=== PATIENT | female | born 1945 | race Caucasian/White ===

== ENCOUNTER 2022-03-17 16:51 | Emergency (ER) | payer OTHER ==
--- OUTSIDE RECORDS SUMMARY | 2022-03-17 16:56 | XMS REPORT | Continuity of Care Document ---
:1945 Author Organization [facility] t Address [address] [place] [address] Care Team Providers Name Role Phone Cliff MARR Primary Care Physician Unavailable JAMES ARCHULETA Attending Clinician Unavailable JULIO STOCK Attending Clinician Unavailable JULIO STOCK Attending Clinician Unavailable Julio Stock MD Attending Clinician Conchita SARABIA Attending Clinician CONCHITA Attending Clinician Unavailable Aj MARTINEZ Attending Clinician Cliff GONZALES Attending Clinician Unavailable Nini CHI Attending Clinician Unavailable Blu Attending Clinician Unavailable JAMES ARCHULETA Admitting Clinician Unavailable JULIO STOCK Admitting Clinician Unavailable Blu Admitting Clinician Unavailable Payers Payer Name Policy Type Policy Number Effective Date Expiration Date S ource MEDICARE ADVANTAGE [id number] [facility] MEDICARE PART A [id number] \\T\\ [id number] - MEDICARE UNITED MEDICARE [id number] 2021 O 00:00:00 MEDICARE B-[place]: [id number] 2012 [employer] 00:00:00 Problems This patient has no known problems. Allergies, Adverse Reactions, Alerts Allergy Allergy Status Severity Reaction(s) Onset Inactive Treating Comm ents Source Name Type Date Date Clinician Iodinate Propensi Active 2020-11 Other [facility] d ty to 11-16 reaction( College Diagnost adverse 00:00: s): of ic reaction 00 Unknown Medicin Agents s to e drug ACETIC Allergy Active [facility] Acetic Propensi Active [facility] Acid ty to 07-03 College adverse 00:00: of reaction 00 Medicin s to e drug CIPROFLO Allergy Active 2019-[address] [facility]ACIN 12[facility] Ciproflo Propensi Active 2019-11 [facility] xacin ty to 12-15 College adverse 00:00: of reaction 00 Medicin s to e drug CODEINE Allergy Active 2018-[address] [facility] IODINE Allergy Active Other 2018-[address] [facility] PENICILL Allergy Active Other 2018-[address] [facility] INS 11[facility]21 [facility] SULFA Allergy Active Other 2018-[address] [facility] (SULFONA 11-21 [facility] M[facility] ANTIBIOT 00 Center ICS) TRAMADOL Allergy Active Other 2018-[address] [facility] Tramadol Propensi Active Other (See 2018-11 [facility] to Comments) 11-21 College adverse 00:00: of reaction 00 Medicin s to e drug Codeine Propensi Active Other (See 2018-11 [facility] ty to Comments) 11-21 College adverse 00:00: of reaction 00 Medicin s to e drug Iodine Propensi Active Other (See 2018-11 [facility] to Comments) 11-21 College adverse 00:00: of reaction 00 Medicin s to e drug Penicill Propensi Active Other (See 2018-11 [facility] ty to Comments) 11-21 College adverse 00:00: of reaction 00 Medicin s to e drug Sulfa Propensi Active Other (See 2018-11 Other [facility] Antibiot ty to Comments) 11-21 reaction( Co llege ics adverse 00:00: s): of reaction 00 Other, Medicin s to Other e drug (See Comments) , Other (See Comments) Other reaction( s): Other (see comments) Other reaction( s): Other (see comments) Social History Social Habit Start Date Stop Date Quantity Comments Source Sex Assigned At Female Access He alth History [facility] ge Alcohol Std Drinks of Med icine History [facility] ge Alcohol Binge of Medicine History [facility] Alcohol Comment of Medici ne Alcohol intake 2022-02-10 2022-02-10 [facility] 00:00:00 00:00:00 non-drinker of Medicine (finding) Exposure to 2022-01-30 2022-02-09 Not sure [facility] Alexia e SARS-CoV-2 (event) 00:00:00 18:13:00 of Med icine History [facility] 2022-01-16 2022-01-16 1 [facility] Alcohol Frequency 00:00:00 00:00:00 of Medi cine Tobacco use and 2021-07-03 2021-07-03 Smokeless tobacco [facility] exposure 00:00:00 00:00:00 non-user of Medicine Smoking Status Start Date Stop Date Source Unknown if ever smoked Access He alth Never smoked tobacco [facility] of Medicine Medications Ordered Filled Start Stop Current Ordering Indication Dosage Frequency Signature Comments Components Source Medication Medication Date Date Medication? Clinician (SIG) Name Name Multiple Yes 1{tbl} Take 1 [facility] Vitamin 3-28 Tablet by [place] (ONE-DAILY 12:58: mouth. of MULTIVITAMI 01 Medicin NS) TABS e Famotidine- 2021- 1{tbl} Take 1 [facility] Carb-Mag 3-28 03-28 Tablet by Co matt Hydrox 12:57: 00:00 mouth. of 10-800-165 26 :00 Medicin MG CHEW e tramadol Yes 1{tbl} Take 1 [facility] (ULTRAM) 50 3-28 Tablet by Col lege MG tablet 00:00: mouth of 00 every 8 Medicin hours as e needed for Pain. Multiple Yes 1{tbl} Take 1 [facility] Vitamin 2-03 Tablet by [place] (ONE-DAILY 10:19: mouth. of MULTIVITAMI 06 Medicin NS) TABS e Multiple Yes 1{tbl} Take 1 [facility] Vitamin 2-03 Tablet by [place] (ONE-DAILY 10:19: mouth. of MULTIVITAMI 06 Medicin NS) TABS e ondansetron Yes 4mg Take 1 [facility] (ZOFRAN) 4 2-03 Tablet by Sandra ege MG tablet 00:00: mouth of 00 every 8 Medicin hours as e needed for Nausea for up to 21 doses. Scopolamine 2022-[address] 1 mg Jeff 1 MG/3DAYS 2-03 onto the [facility] [id number] 00:00: skin every of 00 3 days. Medicin e HYDROmorpho 2022-0 Yes 2mg Take 1 [facility] ne 2-03 Tablet by [place] (DILAUDID) 00:00: mouth of 2 MG tablet 00 every 3 Medic in hours as e needed for Pain for up to 30 doses. ondansetron 2022-0 Yes 4mg Take 1 [facility] (ZOFRAN) 4 2-03 Tablet by Sandra ege MG tablet 00:00: mouth of 00 every 8 Medicin hours as e needed for Nausea for up to 21 doses. Scopolamine 2022-[address] 1 mg Jeff 1 MG/3DAYS 2-03 onto the [facility] PT72 00:00: skin every of 00 3 days. Medicin e HYDROmorpho 2022-0 Yes 2mg Take 1 [facility] ne 2-03 Tablet by [place] (DILAUDID) 00:00: mouth of 2 MG tablet 00 every 3 Medic in hours as e needed for Pain for up to 30 doses. ondansetron 2022-0 2022- No 4mg Take 1 [facility] (ZOFRAN) 4 2-01 16-28 Tablet by Col lege MG tablet 00:00: 00:00 mouth of 00 :00 every 8 Medicin hours as e needed for Nausea for up to 21 doses. Scopolamine 2022-0 2022- No 1mg Place 1 mg [facility] 1 MG/3DAYS 2-01 16-28 onto the Sandra ege PT72 00:00: 00:00 skin every of 00 :00 3 days. Medicin e HYDROmorpho 2022-0 2022- No 2mg Take 1 [facility] ne 2-03 -28 Tablet by [place] (DILAUDID) 00:00: 00:00 mouth of 2 MG tablet 00 :00 every 3 Medic in hours as e needed for Pain for up to 30 doses. gabapentin 2022-0 2022- Yes 300mg Take 1 [facility] (NEURONTIN) 2-03 02-11 capsule by [facility] verdin 300 MG 00:00: 05:59 mouth 3 of capsule 00 :00 times Medicin daily for e 21 doses. Empty contents in 5 mls of water estradiol 2020-11 Yes [facility] (ESTRACE) 1-11 [place] 0.1 MG/GM 00:00: of vaginal Medicin cream e estradiol 2020-11 Yes [facility] (ESTRACE) 1-11 [place] 0.1 MG/GM 00:00: of vaginal Medicin cream e estradiol 2020-11 Yes [facility] (ESTRACE) 1-11 [place] 0.1 MG/GM 00:00: of vaginal Medicin cream e estradiol 2020-11 Yes [facility] (ESTRACE) 1-11 [place] 0.1 MG/GM 00:00: of vaginal Medicin cream e Multiple Yes 1{tbl} Take 1 [facility] 9-22 Tablet by [place] (ONE-DAILY 10:27: mouth. of MULTIVITAMI 49 Medicin NS) TABS e Famotidine- Yes 1{tbl} Take 1 [facility] Carb-Mag 9-22 Tablet by Col lege Hydrox 10:27: mouth. of 49 Medicin MG CHEW e Multiple Yes 1{tbl} Take 1 [facility] 9-22 Tablet by [place] (ONE-DAILY 10:27: mouth. of MULTIVITAMI 49 Medicin NS) TABS e Famotidine- Yes 1{tbl} Take 1 [facility] Carb-Mag 9-22 Tablet by Col lege Hydrox 10:27: mouth. of 49 Medicin MG CHEW e Multiple Yes 1{tbl} Take 1 [facility] 9-22 Tablet by [place] (ONE-DAILY 10:27: mouth. of MULTIVITAMI 49 Medicin NS) TABS e Famotidine- 2020-0 Yes 1{tbl} Take 1 [facility] Carb-Mag 9-22 Tablet by Col lege Hydrox 10:27: mouth. of 49 Medicin MG CHEW e Famotidine- 2020-0 Yes 1{tbl} Take 1 [facility] Carb-Mag 9-22 Tablet by Col lege Hydrox 10:27: mouth. of 49 Medicin MG CHEW e Famotidine- 0 Yes 1{tbl} Take 1 [facility] Carb-Mag 9-22 Tablet by Col lege Hydrox 10:27: mouth. of 49 Medicin MG CHEW e Multiple Yes 1{tbl} Take 1 [facility] 9-22 Tablet by [place] (ONE-DAILY 10:27: mouth. of MULTIVITAMI 49 Medicin NS) TABS e Famotidine- 2020-0 Yes 1{tbl} Take 1 [facility] Carb-Mag 9-22 Tablet by Col lege Hydrox 10:27: mouth. of 49 Medicin MG CHEW e Multiple 0 Yes 1{tbl} Take 1 [facility] 9-22 Tablet by [place] (ONE-DAILY 10:27: mouth. of MULTIVITAMI 49 Medicin NS) TABS e Famotidine- 2020-0 Yes 1{tbl} Take 1 [facility] Carb-Mag 9-22 Tablet by Col lege Hydrox 10:27: mouth. of 49 Medicin MG CHEW e Multiple Yes 1{tbl} Take 1 [facility] 9-22 Tablet by [place] (ONE-DAILY 10:27: mouth. of MULTIVITAMI 49 Medicin NS) TABS e Famotidine- 2020-0 Yes 1{tbl} Take 1 [facility] Carb-Mag 9-22 Tablet by Col lege Hydrox 10:27: mouth. of 49 Medicin MG CHEW e clonidine 0 Yes [facility] (CATAPRES) 8-16 College 0.1 MG 00:00: of tablet 00 Medicin e clonidine 0 Yes [facility] (CATAPRES) 8-16 College 0.1 MG 00:00: of tablet 00 Medicin e clonidine 0 Yes [facility] (CATAPRES) 8-16 College 0.1 MG 00:00: of tablet 00 Medicin e clonidine 0 Yes [facility] (CATAPRES) 8-16 College 0.1 MG 00:00: of tablet 00 Medicin e clonidine 0 Yes [facility] (CATAPRES) 8-16 College 0.1 MG 00:00: of tablet 00 Medicin e clonidine 0 Yes [facility] (CATAPRES) 8-16 College 0.1 MG 00:00: of tablet 00 Medicin e clonidine 0 Yes [facility] (CATAPRES) 8-16 College 0.1 MG 00:00: of tablet 00 Medicin e clonidine 0 Yes [facility] (CATAPRES) 8-16 College 0.1 MG 00:00: of tablet 00 Medicin e clonidine 0 2- No [facility] (CATAPRES) 8-16 03-28 College 0.1 MG 00:00: 00:00 of tablet 00 :00 Medicin e lisinopril Yes TAKE 1 [facility] (PRINIVIL, 7-25 TABLET BY Sandra ege ZESTRIL) 40 00:00: MOUTH of MG tablet 00 TWICE Medicin DAILY e lisinopril Yes TAKE 1 [facility] (PRINIVIL, 7-25 TABLET BY Sandra ege ZESTRIL) 40 00:00: MOUTH of MG tablet 00 TWICE Medicin DAILY e lisinopril Yes TAKE 1 [facility] (PRINIVIL, 7-25 TABLET BY Sandra ege ZESTRIL) 40 00:00: MOUTH of MG tablet 00 TWICE Medicin DAILY e lisinopril Yes TAKE 1 [facility] (PRINIVIL, 7-25 TABLET BY Sandra ege ZESTRIL) 40 00:00: MOUTH of MG tablet 00 TWICE Medicin DAILY e lisinopril Yes TAKE 1 [facility] (PRINIVIL, 7-25 TABLET BY Sandra ege ZESTRIL) 40 00:00: MOUTH of MG tablet 00 TWICE Medicin DAILY e lisinopril Yes TAKE 1 [facility] (PRINIVIL, 7-25 TABLET BY Sandra ege ZESTRIL) 40 00:00: MOUTH of MG tablet 00 TWICE Medicin DAILY e lisinopril Yes TAKE 1 [facility] (PRINIVIL, 7-25 TABLET BY Sandra ege ZESTRIL) 40 00:00: MOUTH of MG tablet 00 TWICE Medicin DAILY e lisinopril Yes TAKE 1 [facility] (PRINIVIL, 7-25 TABLET BY Sandra ege ZESTRIL) 40 00:00: MOUTH of MG tablet 00 TWICE Medicin DAILY e lisinopril Yes TAKE 1 [facility] (PRINIVIL, 7-25 TABLET BY Sandra ROGERS) 40 00:00: MOUTH of MG tablet 00 TWICE Medicin DAILY e EUTHYROX 0 Yes TAKE 1 [facility] 100 MCG 7-23 TABLET BY College tablet 00:00: MOUTH ONCE of 00 DAILY Medicin e EUTHYROX 2020-0 Yes TAKE 1 [facility] 100 MCG 7-23 TABLET BY College tablet 00:00: MOUTH ONCE of 00 DAILY Medicin e EUTHYROX 0 Yes TAKE 1 [facility] 100 MCG 7-23 TABLET BY College tablet 00:00: MOUTH ONCE of 00 DAILY Medicin e EUTHYROX 0 Yes TAKE 1 [facility] 100 MCG 7-23 TABLET BY College tablet 00:00: MOUTH ONCE of 00 DAILY Medicin e EUTHYROX 0 Yes TAKE 1 [facility] 100 MCG 7-23 TABLET BY College tablet 00:00: MOUTH ONCE of 00 DAILY Medicin e EUTHYROX 2020-0 Yes TAKE 1 [facility] 100 MCG 7-23 TABLET BY College tablet 00:00: MOUTH ONCE of 00 DAILY Medicin e EUTHYROX 0 Yes TAKE 1 [facility] 100 MCG 7-23 TABLET BY College tablet 00:00: MOUTH ONCE of 00 DAILY Medicin e EUTHYROX 0 Yes TAKE 1 [facility] 100 MCG 7-23 TABLET BY College tablet 00:00: MOUTH ONCE of 00 DAILY Medicin e EUTHYROX 2020-0 2021- No TAKE 1 [facility] 100 MCG 7-23 03-28 TABLET BY Colleg e tablet 00:00: 00:00 MOUTH ONCE of 00 :00 DAILY Medicin e metoprolol 0 Yes TAKE 1 [facility] (TOPROL-XL) 7-22 TABLET BY Col lege 200 MG XL 00:00: MOUTH ONCE of tablet 00 DAILY Medicin e metoprolol 0 Yes TAKE 1 [facility] (TOPROL-XL) 7-22 TABLET BY Col lege 200 MG XL 00:00: MOUTH ONCE of tablet 00 DAILY Medicin e metoprolol 0 Yes TAKE 1 [facility] (TOPROL-XL) 7-22 TABLET BY Col lege 200 MG XL 00:00: MOUTH ONCE of tablet 00 DAILY Medicin e metoprolol 0 Yes TAKE 1 [facility] (TOPROL-XL) 7-22 TABLET BY Col lege 200 MG XL 00:00: MOUTH ONCE of tablet 00 DAILY Medicin e metoprolol Yes TAKE 1 [facility] (TOPROL-XL) 7-22 TABLET BY Col lege 200 MG XL 00:00: MOUTH ONCE of tablet 00 DAILY Medicin e metoprolol Yes TAKE 1 [facility] (TOPROL-XL) 7-22 TABLET BY Col lege 200 MG XL 00:00: MOUTH ONCE of tablet 00 DAILY Medicin e metoprolol Yes TAKE 1 [facility] (TOPROL-XL) 7-22 TABLET BY Col lege 200 MG XL 00:00: MOUTH ONCE of tablet 00 DAILY Medicin e metoprolol Yes TAKE 1 [facility] (TOPROL-XL) 7-22 TABLET BY Col lege 200 MG XL 00:00: MOUTH ONCE of tablet 00 DAILY Medicin e metoprolol Yes TAKE 1 [facility] (TOPROL-XL) 7-22 TABLET BY Col lege 200 MG XL 00:00: MOUTH ONCE of tablet 00 DAILY Medicin e atorvastati Yes TAKE 1 [facility] (LIPITOR) 7-12 TABLET BY Col lege 40 MG 00:00: MOUTH ONCE of tablet 00 DAILY Medicin e atorvastati Yes TAKE 1 [facility] (LIPITOR) 7-12 TABLET BY Col lege 40 MG 00:00: MOUTH ONCE of tablet 00 DAILY Medicin e atorvastati Yes TAKE 1 [facility] (LIPITOR) 7-12 TABLET BY Col lege 40 MG 00:00: MOUTH ONCE of tablet 00 DAILY Medicin e atorvastati Yes TAKE 1 [facility] (LIPITOR) 7-12 TABLET BY Col lege 40 MG 00:00: MOUTH ONCE of tablet 00 DAILY Medicin e atorvastati Yes 40mg Take 40 mg Jeff n (LIPITOR) 7-12 by mouth [facility] 40 MG 00:00: daily. of tablet 00 Medicin e atorvastati Yes 40mg Take 40 mg [facility] n (LIPITOR) 7-12 by mouth Sandra ege 40 MG 00:00: daily. of tablet 00 Medicin e atorvastati Yes TAKE 1 [facility] (LIPITOR) 7-12 TABLET BY Col lege 40 MG 00:00: MOUTH ONCE of tablet 00 DAILY Medicin e atorvastati Yes TAKE 1 [facility] (LIPITOR) 7-12 TABLET BY Col lege 40 MG 00:00: MOUTH ONCE of tablet 00 DAILY Medicin e atorvastati Yes TAKE 1 [facility] (LIPITOR) 7-12 TABLET BY Col lege 40 MG 00:00: MOUTH ONCE of tablet 00 DAILY Medicin e Immunizations Ordered Immunization Filled Immunization Date Status Commen ts Source Name Name Influenza 2019-08-29 Completed [facility] Quadrivalent 3YRS+ 00:00:00 of Med icine Influenza 2019-08-29 Completed [facility] Quadrivalent 3YRS+ 00:00:00 of Med icine Influenza 2019-08-29 Completed [facility] Quadrivalent 3YRS+ 00:00:00 of Med icine Influenza 2019-08-29 Completed [facility] Quadrivalent 3YRS+ 00:00:00 of Med icine Influenza 2019-08-29 Completed [facility] Quadrivalent 3YRS+ 00:00:00 of Med icine Influenza 2019-08-29 Completed [facility] Quadrivalent 3YRS+ 00:00:00 of Med icine Influenza 2019-08-29 Completed [facility] Quadrivalent 3YRS+ 00:00:00 of Med icine Influenza 2019-08-29 Completed [facility] Quadrivalent 3YRS+ 00:00:00 of Med icine Influenza 2019-08-29 Completed [facility] Quadrivalent 3YRS+ 00:00:00 of Med icine Vital Signs Vital Name Observation Time Observation Value Comments Source HEIGHT 2021-07-24 11:09:00 160 cm WEIGHT 2021-07-24 11:09:00 80.876 kg HEIGHT 2021-07-17 16:09:00 160 cm WEIGHT 2021-07-17 16:09:00 82.101 kg Systolic blood 2022-02-10 17:56:00 147 mm[Hg] [facility] pressure Medicine Diastolic blood 2022-02-10 17:56:00 85 mm[Hg] [facility] Medicine Heart rate 2022-02-10 17:56:00 64 /min [facility] Body height 2022-02-10 17:56:00 160 cm [facility] Body weight 2022-02-10 17:56:00 77.111 kg [facility] BMI 2022-02-10 17:56:00 30.11 kg/m2 [facility] Systolic blood 2022-01-16 18:51:00 109 mm[Hg] [facility] Medicine Diastolic blood 2022-01-16 18:51:00 69 mm[Hg] [facility] Medicine Heart rate 2022-01-16 18:51:00 74 /min [facility] Body height 2022-01-16 18:51:00 165.1 cm [facility] Body weight 2022-01-16 18:51:00 78.926 kg [facility] BMI 2022-01-16 18:51:00 28.96 kg/m2 [facility] WEIGHT 2022-01-03 07:22:00 83.915 kg HEIGHT 2022-01-01 08:26:00 160 cm WEIGHT 2022-01-01 08:26:00 83.915 kg HEIGHT 2022-01-01 07:00:00 167.6 cm WEIGHT 2022-01-01 07:00:00 128.3 kg WEIGHT 2022-01-03 07:22:00 83.915 kg HEIGHT 2022-01-01 08:26:00 160 cm WEIGHT 2022-01-01 08:26:00 83.915 kg HEIGHT 2022-01-01 07:00:00 167.6 cm WEIGHT 2022-01-01 07:00:00 128.3 kg Systolic blood 2021-12-19 16:16:00 137 mm[Hg] [facility] Medicine Diastolic blood 2021-12-19 16:16:00 84 mm[Hg] [facility] Medicine Heart rate 2021-12-19 16:16:00 66 /min [facility] Body height 2021-12-19 16:16:00 160 cm [facility] Body weight 2021-12-19 16:16:00 83.462 kg [facility] BMI 2021-12-19 16:16:00 32.59 kg/m2 [facility] Systolic blood 2021-11-14 16:17:00 178 mm[Hg] [facility] pressure Medicine Diastolic blood 2021-11-14 16:17:00 99 mm[Hg] [facility] pressure Medicine Heart rate 2021-11-14 16:17:00 57 /min [facility] ol[facility] of Medicine Body height 2021-11-14 16:17:00 160 cm [facility] Body weight 2021-11-14 16:17:00 84.369 kg [facility] BMI 2021-11-14 16:17:00 32.95 kg/m2 [facility] BMI 2021-09-18 15:31:00 32.59 kg/m2 [facility] Body weight 2021-09-18 15:31:00 83.462 kg [facility] ol[facility] of Medicine Body height 2021-08-15 13:12:00 160 cm [facility] Body weight 2021-08-15 13:12:00 82.509 kg [facility] BMI 2021-08-15 13:12:00 32.22 kg/m2 [facility] of Medicine Systolic blood 2021-08-07 15:26:00 154 mm[Hg] [facility] pressure Medicine Diastolic blood 2021-08-07 15:26:00 93 mm[Hg] [facility] Medicine Heart rate 2021-08-07 15:26:00 66 /min [facility] Medicine Body temperature 2021-08-07 15:26:00 36.44 [facility] Body height 2021-08-07 15:26:00 160 cm [facility] Body weight 2021-08-07 15:26:00 81.194 kg [facility] BMI 2021-08-07 15:26:00 31.71 kg/m2 [facility] ol[facility] of Medicine Procedures This patient has no known procedures. Plan of Care Planned Activity Planned Date Details Comments Source Future Scheduled 2022-02-10 Screening for [facility] Test 13:14:22 malignant neoplasm of of Med icine colon (procedure) [code = 084865444] Future Scheduled 2022-02-10 Screening for [facility] Test 13:14:22 malignant neoplasm of of Med icine breast (procedure) [code = 122256184] Future Scheduled 2022-02-10 COVID-19 Vaccine (1) [facility] Test 13:14:22 [code = COVID-19 of Medicine Vaccine (1)] Future Scheduled 2022-02-10 TETANUS SHOT (ADULT) [facility] Test 13:14:22 [code = TETANUS SHOT of Medi cine (ADULT)] Future Scheduled 2022-02-10 Hepatitis C screening [facility] 13:14:22 (procedure) [code = of Medic ine 026775719] Future Scheduled 2022-02-10 ZOSTER VACCINE (1 of [facility] Test 13:14:22 2) [code = ZOSTER of Medicin e VACCINE (1 of 2)] Future Scheduled 2022-02-10 MEDICARE AWV [facility] Test 13:14:22 (Initial) [code = of Medicin e MEDICARE AWV (Initial)] Future Scheduled 2022-02-10 Screening for [facility] Test 13:14:22 osteoporosis of Medicine (procedure) [code = 819669790] Future Scheduled 2022-02-10 Pneumococcal 65+ (1 [facility] Test 13:14:22 of 1 - PPSV23) [code of Medi cine = Pneumococcal 65+ (1 of 1 - PPSV23)] Future Scheduled 2022-02-10 FALL SCREEN [code = [facility] 13:14:22 FALL SCREEN] of Medicine Future Scheduled 2022-02-10 BMI FOLLOW UP PLAN [facility] 13:14:22 [code = BMI FOLLOW UP of Med icine PLAN] Future Scheduled 2022-01-16 BMI FOLLOW UP PLAN [facility] 12:53:37 [code = BMI FOLLOW UP of Med icine PLAN] Future Scheduled 2022-01-16 Screening for [facility] Test 12:51:58 malignant neoplasm of of Med icine colon (procedure) [code = 624870152] Future Scheduled 2022-01-16 Screening for [facility] Test 12:51:58 malignant neoplasm of of Med icine breast (procedure) [code = 991675117] Future Scheduled 2022-01-16 COVID-19 Vaccine (1) [facility] Test 12:51:58 [code = COVID-19 of Medicine Vaccine (1)] Future Scheduled 2022-01-16 TETANUS SHOT (ADULT) [facility] [employer] [facility] 12:51:58 [code = TETANUS SHOT of Medi cine (ADULT)] Future Scheduled 2022-01-16 Hepatitis C screening [facility] 12:51:58 (procedure) [code = of Medic ine 619475044] Future Scheduled 2022-01-16 ZOSTER VACCINE (1 of [facility] [employer] Test 12:51:58 2) [code = ZOSTER of Medicin e VACCINE (1 of 2)] Future Scheduled 2022-01-16 MEDICARE AWV [facility] Test 12:51:58 (Initial) [code = of Medicin e MEDICARE AWV (Initial)] Future Scheduled 2022-01-16 Screening for [facility] Test 12:51:58 osteoporosis of Medicine (procedure) [code = 316682599] Future Scheduled 2022-01-16 Pneumococcal 65+ (1 [facility] Test 12:51:58 of 1 - PPSV23) [code of Medi cine = Pneumococcal 65+ (1 of 1 - PPSV23)] Future Scheduled 2022-01-16 FALL SCREEN [code = [facility] Test 12:51:58 FALL SCREEN] of Medicine Future Scheduled 2021-12-19 BMI FOLLOW UP PLAN [facility] 10:19:58 [code = BMI FOLLOW UP of Med icine PLAN] Future Scheduled 2021-12-19 Screening for [facility] Test 10:18:24 malignant neoplasm of of Med icine colon (procedure) [code = 218111327] Future Scheduled 2021-12-19 Screening for [facility] Test 10:18:24 malignant neoplasm of of Med icine breast (procedure) [code = 990338327] Future Scheduled 2021-12-19 COVID-19 Vaccine (1) [facility] Test 10:18:24 [code = COVID-19 of Medicine Vaccine (1)] Future Scheduled 2021-12-19 TETANUS SHOT (ADULT) [facility] [employer] Test 10:18:24 [code = TETANUS SHOT of Medi cine (ADULT)] Future Scheduled 2021-12-19 Hepatitis C screening [facility] [employer] [facility] 10:18:24 (procedure) [code = of Medic ine 294619846] Future Scheduled 2021-12-19 ZOSTER VACCINE (1 of [facility] [employer] Test 10:18:24 2) [code = ZOSTER of Medicin e VACCINE (1 of 2)] Future Scheduled 2021-12-19 MEDICARE AWV [facility] Test 10:18:24 (Initial) [code = of Medicin e MEDICARE AWV (Initial)] Future Scheduled 2021-12-19 Screening for [facility] Col [facility] Test 10:18:24 osteoporosis of Medicine (procedure) [code = 794579875] Future Scheduled 2021-12-19 Pneumococcal 65+ (1 [facility] 10:18:24 of 1 - PPSV23) [code of Medi cine = Pneumococcal 65+ (1 of 1 - PPSV23)] Future Scheduled 2021-12-19 FALL SCREEN [code = [facility] Test 10:18:24 FALL SCREEN] of Medicine Future Scheduled 2021-11-14 VITAMIN D 1,25 Ordered: [facility] Test 10:49:51 DIHYDROXY [code = 11/14/2021 of Medicin e 1649-3] Future Scheduled 2021-11-14 FOLATE [code = Ordered: [facility] Test 10:49:51 2284-8] 11/14/2021 of Medicine Future Scheduled 2021-11-14 HEMOGLOBIN A1C [code Ordered: [facility] Test 10:49:51 = 4548-4] 11/14/2021 of Medicine Future Scheduled 2021-11-14 PROTIME-INR [code = Ordered: [facility] 10:49:51 5902-2] 11/14/2021 of Medicine Future Scheduled 2021-11-14 URINALYSIS AUTO Ordered: [facility] Test 10:49:51 W/SCOPE [code = 11/14/2021 of Medicine 68842-4] Future Scheduled 2021-11-14 CBC W/O DIFF W PLT Ordered: [facility] 10:49:50 [code = 6690-2] 11/14/2021 of Medicine Future Scheduled 2021-11-14 COMPREHENSIVE Ordered: [facility] Test 10:49:50 METABOLIC PANEL [code 11/14/2021 of Med icine = 37980-4] Future Scheduled 2021-11-14 IRON, TIBC AND Ordered: [facility] Test 10:49:50 FERRITIN PANEL [code 11/14/2021 of Medi cine = NOCPT] Future Scheduled 2021-11-14 CALCIUM [code = Ordered: [facility] 10:49:50 52493-4] 11/14/2021 of Medicine Future Scheduled 2021-11-14 ALBUMIN [code = Ordered: [facility] 10:49:50 1751-7] 11/14/2021 of Medicine Future Scheduled 2021-11-14 LIPID PANEL [code = Ordered: [facility] [employer] [facility] 10:49:50 55055-5] 11/14/2021 of Medicine Future Scheduled 2021-11-14 VITAMIN B1 [code = Ordered: [facility] r [facility] Test 10:49:50 28335-9] 11/14/2021 of Medicine Future Scheduled 2021-11-14 VITAMIN B6 [code = Ordered: [facility] Test 10:49:50 55449-6] 11/14/2021 of Medicine Future Scheduled 2021-11-14 VITAMIN B12 [code = Ordered: [facility] or College Test 10:49:50 2132-9] 11/14/2021 of Medicine Future Scheduled 2021-11-14 VITAMIN A [code = Ordered: [facility] 10:49:50 2923-1] 11/14/2021 of Medicine Future Scheduled 2021-11-14 BMI FOLLOW UP PLAN [facility] Test 10:19:20 [code = BMI FOLLOW UP of Med icine PLAN] Future Scheduled 2021-11-14 Screening for [facility] Test 10:18:44 malignant neoplasm of of Med icine colon (procedure) [code = 443075134] Future Scheduled 2021-11-14 Screening for [facility] Test 10:18:44 malignant neoplasm of of Med icine breast (procedure) [code = 044506021] Future Scheduled 2021-11-14 COVID-19 Vaccine (1) [facility] Test 10:18:44 [code = COVID-19 of Medicine Vaccine (1)] Future Scheduled 2021-11-14 TETANUS SHOT (ADULT) [facility] Test 10:18:44 [code = TETANUS SHOT of Medi cine (ADULT)] Future Scheduled 2021-11-14 Hepatitis C screening [employer] [facility] 10:18:44 (procedure) [code = of Medic ine 771221369] Future Scheduled 2021-11-14 ZOSTER VACCINE (1 of [facility] [employer] Test 10:18:44 2) [code = ZOSTER of Medicin e VACCINE (1 of 2)] Future Scheduled 2021-11-14 MEDICARE AWV [facility] 10:18:44 (Initial) [code = of Medicin e MEDICARE AWV (Initial)] Future Scheduled 2021-11-14 Screening for [facility] [employer] [facility] Test 10:18:44 osteoporosis of Medicine (procedure) [code = 950210782] Future Scheduled 2021-11-14 Pneumococcal 65+ (1 [employer] [facility] [employer] [facility] 10:18:44 of 1 - PPSV23) [code of Medi cine = Pneumococcal 65+ (1 of 1 - PPSV23)] Future Scheduled 2021-11-14 FALL SCREEN [code = [employer] [facility] 10:18:44 FALL SCREEN] of Medicine Future Scheduled 2021-10-18 [facility] for [facility] Test 16:55:41 malignant neoplasm of of Med icine colon (procedure) [code = 969492287] Future Scheduled 2021-10-18 Screening for [facility] [employer] [facility] 16:55:41 malignant neoplasm of of Med icine breast (procedure) [code = 677482039] Future Scheduled 2021-10-18 COVID-19 Vaccine (1) [facility] [employer] [facility] 16:55:41 [code = COVID-19 of Medicine Vaccine (1)] Future Scheduled 2021-10-18 TETANUS SHOT (ADULT) [facility] [employer] [facility] 16:55:41 [code = TETANUS SHOT of Medi cine (ADULT)] Future Scheduled 2021-10-18 Hepatitis C screening [employer] [facility] 16:55:41 (procedure) [code = of Medic ine 339298748] Future Scheduled 2021-10-18 ZOSTER VACCINE (1 of [facility] [employer] [facility] 16:55:41 2) [code = ZOSTER of Medicin e VACCINE (1 of 2)] Future Scheduled 2021-10-18 MEDICARE AWV [facility] Test 16:55:41 (Initial) [code = of Medicin e MEDICARE AWV (Initial)] Future Scheduled 2021-10-18 Screening for [facility] [employer] [facility] 16:55:41 osteoporosis of Medicine (procedure) [code = 012090175] Future Scheduled 2021-10-18 Pneumococcal 65+ (1 [employer] [facility] 16:55:41 of 1 - PPSV23) [code of Medi cine = Pneumococcal 65+ (1 of 1 - PPSV23)] Future Scheduled 2021-10-18 BMI FOLLOW UP PLAN [employer] [facility] 16:55:41 [code = BMI FOLLOW UP of Med icine PLAN] Future Scheduled 2021-10-18 FALL SCREEN [code = [employer] [facility] 16:55:41 FALL SCREEN] of Medicine Future Scheduled 2021-09-18 [facility] for [facility] 10:13:27 malignant neoplasm of of Med icine colon (procedure) [code = 111474533] Future Scheduled 2021-09-18 Screening for [facility] [employer] [facility] 10:13:27 malignant neoplasm of of Med icine breast (procedure) [code = 045804886] Future Scheduled 2021-09-18 COVID-19 Vaccine (1) [facility] [employer] [facility] 10:13:27 [code = COVID-19 of Medicine Vaccine (1)] Future Scheduled 2021-09-18 TETANUS SHOT (ADULT) [facility] [employer] [facility] 10:13:27 [code = TETANUS SHOT of Medi cine (ADULT)] Future Scheduled 2021-09-18 Hepatitis C screening [facility] Test 10:13:27 (procedure) [code = of Medic ine 092558101] Future Scheduled 2021-09-18 ZOSTER VACCINE (1 of [facility] [employer] [facility] 10:13:27 2) [code = ZOSTER of Medicin e VACCINE (1 of 2)] Future Scheduled 2021-09-18 MEDICARE AWV [facility] 10:13:27 (Initial) [code = of Medicin e MEDICARE AWV (Initial)] Future Scheduled 2021-09-18 Screening for [facility] [employer] [facility] 10:13:27 osteoporosis of Medicine (procedure) [code = 538939480] Future Scheduled 2021-09-18 PNEUMOVAX >=65 [facility] 10:13:27 (PPSV23) [code = of Medicine PNEUMOVAX >=65 (PPSV23)] Future Scheduled 2021-09-18 BMI FOLLOW UP PLAN [employer] [facility] 10:13:27 [code = BMI FOLLOW UP of Med icine PLAN] Future Scheduled 2021-09-18 FALL SCREEN [code = [employer] [facility] 10:13:27 FALL SCREEN] of Medicine Future Scheduled 2021-08-20 Screening for [facility] [employer] [facility] 13:40:17 malignant neoplasm of of Med icine colon (procedure) [code = 953135745] Future Scheduled 2021-08-20 Screening for [facility] [employer] [facility] 13:40:17 malignant neoplasm of of Med icine breast (procedure) [code = 611720214] Future Scheduled 2021-08-20 COVID-19 Vaccine (1) [facility] [employer] [facility] 13:40:17 [code = COVID-19 of Medicine Vaccine (1)] Future Scheduled 2021-08-20 TETANUS SHOT (ADULT) [facility] [employer] [facility] 13:40:17 [code = TETANUS SHOT of Medi cine (ADULT)] Future Scheduled 2021-08-20 Hepatitis C screening [facility] [employer] [facility] 13:40:17 (procedure) [code = of Medic ine 964026676] Future Scheduled 2021-08-20 ZOSTER VACCINE (1 of [facility] [employer] [facility] 13:40:17 2) [code = ZOSTER of Medicin e VACCINE (1 of 2)] Future Scheduled 2021-08-20 MEDICARE AWV [facility] 13:40:17 (Initial) [code = of Medicin e MEDICARE AWV (Initial)] Future Scheduled 2021-08-20 Screening for [facility] [employer] [facility] 13:40:17 osteoporosis of Medicine (procedure) [code = 200678146] Future Scheduled 2021-08-20 PNEUMOVAX >=65 [facility] [employer] [facility] 13:40:17 (PPSV23) [code = of Medicine PNEUMOVAX >=65 (PPSV23)] Future Scheduled 2021-08-20 BMI FOLLOW UP PLAN [employer] [facility] 13:40:17 [code = BMI FOLLOW UP of Med icine PLAN] Future Scheduled 2021-08-20 FALL SCREEN [code = [employer] [facility] 13:40:17 FALL SCREEN] of Medicine Future Scheduled 2021-08-07 Screening for [facility] [employer] [facility] 10:28:39 malignant neoplasm of of Med icine colon (procedure) [code = 264975660] Future Scheduled 2021-08-07 [facility] for [facility] 10:28:39 malignant neoplasm of of Med icine breast (procedure) [code = 412391960] Future Scheduled 2021-08-07 COVID-19 Vaccine (1) [facility] [facility] [employer] [facility] 10:28:39 [code = COVID-19 of Medicine Vaccine (1)] Future Scheduled 2021-08-07 TETANUS SHOT (ADULT) [facility] [facility] [employer] [facility] 10:28:39 [code = TETANUS SHOT of Medi cine (ADULT)] Future Scheduled 2021-08-07 Hepatitis C screening [facility] [employer] [facility] 10:28:39 (procedure) [code = of Medic ine 177068616] Future Scheduled 2021-08-07 ZOSTER VACCINE (1 of [facility] [employer] [facility] 10:28:39 2) [code = ZOSTER of Medicin e VACCINE (1 of 2)] Future Scheduled 2021-08-07 MEDICARE AWV [facility] Test 10:28:39 (Initial) [code = of Medicin e MEDICARE AWV (Initial)] Future Scheduled 2021-08-07 [facility] for [facility] 10:28:39 osteoporosis of Medicine (procedure) [code = 782693554] Future Scheduled 2021-08-07 PNEUMOVAX >=65 [facility] 10:28:39 (PPSV23) [code = of Medicine PNEUMOVAX >=65 (PPSV23)] Future Scheduled 2021-08-07 BMI FOLLOW UP PLAN [employer] [employer] [facility] 10:28:39 [code = BMI FOLLOW UP of Med icine PLAN] Future Scheduled 2021-08-07 FALL SCREEN [code = [employer] [facility] 10:28:39 FALL SCREEN] of Medicine Future Scheduled 2021-08-07 Screening for [facility] [employer] [facility] 10:28:39 malignant neoplasm of of Med icine colon (procedure) [code = 462288267] Future Scheduled 2021-08-07 [facility]ening for [facility] 10:28:39 malignant neoplasm of of Med icine breast (procedure) [code = 891683972] Future Scheduled 2021-08-07 COVID-19 Vaccine (1) [facility] [employer] [facility] 10:28:39 [code = COVID-19 of Medicine Vaccine (1)] Future Scheduled 2021-08-07 TETANUS SHOT (ADULT) [facility] [facility] [employer] [facility] 10:28:39 [code = TETANUS SHOT of Medi cine (ADULT)] Future Scheduled 2021-08-07 Hepatitis C screening [employer] [facility] 10:28:39 (procedure) [code = of Medic ine 261172598] Future Scheduled 2021-08-07 ZOSTER VACCINE (1 of [facility] [employer] Test 10:28:39 2) [code = ZOSTER of Medicin e VACCINE (1 of 2)] Future Scheduled 2021-08-07 MEDICARE AWV [facility] Test 10:28:39 (Initial) [code = of Medicin e MEDICARE AWV (Initial)] Future Scheduled 2021-08-07 Screening for [facility] 10:28:39 osteoporosis of Medicine (procedure) [code = 557225387] Future Scheduled 2021-08-07 PNEUMOVAX >=65 [facility] 10:28:39 (PPSV23) [code = of Medicine PNEUMOVAX >=65 (PPSV23)] Future Scheduled 2021-08-07 BMI FOLLOW UP PLAN [facility] r [facility] Test 10:28:39 [code = BMI FOLLOW UP of Med icine PLAN] Future Scheduled 2021-08-07 FALL SCREEN [code = [employer] [facility] 10:28:39 FALL SCREEN] of Medicine Encounters Start End Encounter Admission Attending Care Care Encounter Source Date/Time Date/Time Type Type Clinicians Facility Department ID 2021-12-11 Outpatient [facility] 14:07[facility]10 [id number] 2021-12-11 Outpatient [facility] 13:52:30 [id number] 2021-08-25 Outpatient [facility] Surgery [id number] [facility] 10:47:11 CHRISTINE LACKEY 2022-02-10 2022-02-10 Office JUAN STOCK [id number] [facility] 12:42:29 13:14:47 Visit SAMER AMBULATOR 350.1.13.21 College Y 0.2.7.2.686 of [id number] [facility] 805 e 2022-01-16 2022-01-16 Office JUAN STOCK 1.2.840.114 [id number] [facility] 12:44:34 13:03:40 Visit SAMER AMBULATOR 350.1.13.21 College Y 0.2.7.2.686 of [id number] [facility] 805 e 2022-01-01 2022-01-03 Inpatient EL MATTAR, [facility] [id number] [facility] 06:20:00 10:44:00 [facility] 2021-12-31 2021-12-31 Outpatient EL SLEH [facility] [id number] [facility] 12:26:24 23:59:00 2021-12-27 2021-12-27 Outpatient EL MATTAR, [facility] [id number] [facility] 10:52:30 23:59:00 [facility] 2021-12-27 2021-12-27 Outpatient [facility] [id number] [facility] 00:00:00 23:59:00 Daphne mccann of Medicin e 2021-12-27 2021-12-27 [facility] [id number] [facility] 00:00:00 00:00:00 2021-12-27 2021-12-27 Outpatient EL MATTAR, [facility] [id number] [facility] 00:00:00 00:00:00 [facility] 2021-12-19 2021-12-19 Office SHARON, BARI 1.2.840.114 [id number] [facility] 10:07:12 10:43:44 Visit SAMER AMBULATOR 350.1.13.21 College Y 0.2.7.2.686 of [id number] [facility] [place] 805 e 2021-11-14 2021-11-14 Office Matmichele, BCM 1.2.840.114 [id number] [facility] 11:30:00 11:30:00 Visit Samer Gamil AMBULATOR 350.1.13.21 College Y 0.2.7.2.686 of [id number] [facility] [place] 805 e 2021-10-17 2021-10-17 Office Conchita, JUAN 1.2.840.114 [id number] [facility] 14:30:00 15:30:00 Visit Gabriella AMBULATOR 350.1.13.21 College Y 0.2.7.2.686 of [id number] [facility] [place] 810 e 2021-09-18 2021-09-18 Office BARI SAHA 1.2.840.114 [id number] [facility] 10:14:10 11:05:34 Visit GABRIELLA AMBULATOR 350.1.13.21 College Y 0.2.7.2.686 of [id number] Medi [place] 810 e 2021-09-03 2021-09-03 [facility] [id number] 13:54:27 14:10:35 [facility]in e 2021-08-15 2021-08-15 Office BARI Saha 1.2.840.114 [id number] [facility] 08:01:53 09:42:27 Visit Gabriella AMBULATOR 350.1.13.21 College Y 0.2.7.2.686 of [id number] Medi [place] 810 e 2021-08-07 2021-08-07 Office BARI Rocha 1.2.840.114 [id number] [facility] 10:19:40 10:49:40 Visit Neetu AMBULATOR 350.1.13.21 College Y 0.2.7.2.686 of [id number] Medi [place] 800 e 2021-07-17 2021-07-17 Outpatient [facility]H [facility] [id number] [facility] 00:00:00 00:00:00 2021-07-03 2021-07-03 Outpatient JANET [facility] [id number] [facility] 13:22:31 15:23:23 [facility]in e 2020-04-03 2020-04-03 Outpatient [facility] [id number] Access 11:00:00 11:00:00 00-0000-000 [id number] [facility] [id number] 2020-04-03 2020-04-03 Outpatient [facility] [id number] Access 00:00:00 00:00:00 [facility] 2020-04-03 2020-04-03 Outpatient ALON [facility] [id number] Access 00:00:00 00:00:00 IVORY Terrazas 00-0000-000 [id number] [facility] [id number] 2016-10-07 2016-10-07 Outpatient Blu [facility] [id number] [place] 03:16:00 03:16:00 [facility] Results Test Description Test Time Test Comments Results Result Sourc e Comments TISSUE EXAM 2022-01-06 Surgical Pathology 16:14:22 Report Case: [id number] Authorizing Provider: Lacey Stock MD Collected: 01/01/2022 11:43 AM Ordering Location: [facility] PERIOPERATIVE Received: 01/02/2022 02:13 PM SERVICES Pathologist: Macie Harris MD Specimen: Soft Tissue, Other, Fundus, stomach A. STOMACH, PARTIAL GASTRECTOMY: - OXYNTIC MUCOSA WITH CHRONIC INACTIVE GASTRITIS - NEGATIVE FOR HELICOBACTER PYLORI ORGANISMS (BY H&E EXAMINATION) - NEGATIVE FOR INTESTINAL METAPLASIA, DYSPLASIA, MALIGNANCY Signing Pathologist Direct Phone Line: [phone] ally signed by Macie Harris MD on 01/06/2022 at 4:14 [id number] l reflux disease without esophagitisSoft tissue, otherA. Received fresh labeled the patient's name, medical record number, and designated "fundus, stomach" is a 14.1 x 4.0 x 2.3 cm unoriented partial gastrectomy. The specimen contains a 13.7 cm staple line with scant amounts of attached adipose tissue.The surface is morel-pink, smooth and glistening. The specimen is opened to reveal clear watery fluid and undigested stomach contents. The mucosa is morel-pink and displays a focal area of flattening. The remaining mucosa displays normal folding. The stomach wall is 0.4 cm in thickness. No lymph nodes are identified. No gross lesions are identified. Nut Tightener sections are submitted as follows:Section code:A1: Staple line margin, en faceA2-A4: Area of flat mucosaA5-A 10: Nut Tightener mucosaKHRIS Guthrie studentPerformed. POCT-GLUCOSE METER 2022-01-03 06:39:19 Test Item Value Reference Range Interpretation Comme nts POC-GLUCOSE METER (BEAKER) 108 mg/dL 70-110 : TESTED AT [facility] [address] [facility] (test code = 1538) [facility] X, [address]: Blueprint Tracer/Techni nadege ID = [id number] for Trevon, Santana POCT-GLUCOSE [id number] 22:50:05 Test Item Value Reference Range Interpretation Comments POC-GLUCOSE METER 119 mg/dL 70-110 H : [facility] (test code = [facility], 1538) [address]: Blueprint Tracer/Techni nadege ID = [id number] for No rman, Santana POCT-GLUCOSE [id number] 17:23:28 Test Item Value Reference Range Interpretation Comments POC-GLUCOSE METER 121 mg/dL 70-110 H : [facility] (test code = [facility], 153) [address]69: Blueprint Tracer/Techni nadege ID = [id number] for Wi lliams, Areiona POCT-GLUCOSE [id number] 10:19:32 Test Item Value Reference Range Interpretation Comments POC-GLUCOSE METER 125 mg/dL 70-110 H : [facility] (test code = [facility], 1538) 22049: Blueprint Tracer/Techni nadege ID = [id number] for Ib ensharjit, Fede POCT-GLUCOSE [id number] 06:07:58 Test Item Value Reference Range Interpretation Comments POC-GLUCOSE METER 132 mg/dL 70-110 H : [facility]) (test code = [facility], 1538) 19639: Blueprint Tracer/Techni nadege ID = [id number] for No rman, Santana POCT-GLUCOSE [id number] 23:35:12 Test Item Value Reference Range Interpretation Comments POC-GLUCOSE METER 136 mg/dL 70-110 H : [facility]) (test code = [facility], 1538) 04294: Blueprint Tracer/Techni nadege ID = [id number] for No rman, Santana POCT-GLUCOSE [id number] 18:53:24 Test Item Value Reference Range Interpretation Comments POC-GLUCOSE METER 138 mg/dL 70-110 H : TESTED A T [facility] [address] (BEAKER) (test code = [facility], 1538) 41713: Blueprint Tracer/Techni nadege ID = [id number] for Guevara Dumont POCT-GLUCOSE [id number] 16:53:31 Test Item Value Reference Range Interpretation Comments POC-GLUCOSE METER 149 mg/dL 70-110 H : TESTED A T [facility] [address] (BEAKER) (test code [facility], = 1538) 23085: Blueprint Tracer/Techni nadege ID = [id number] for Coco Subramanian POCT-GLUCOSE [id number] 09:08:30 Test Item Value Reference Range Interpretation Comments POC-GLUCOSE METER 87 mg/dL 70-110 : TESTED A T [facility] [address] (BEAKER) (test code = [facility], 1538) 86643: Blueprint Tracer/Techni nadege ID = [id number] for KASHMIR [place] SARS-COV2/RT-PCR ([facility])2021-12-27 19:47:01 Test Item Value Reference Range Interpretation Comments SARS-COV2/RT-PCR (test code = Negative Negative [id number]) Negative result for this test determines that SARS-CoV-2 RNA was not present in the specimen above the Limit of Detection (LOD). However, Negative results do not preclude SARS-CoV-2 infection and should not be used as the sole basis for treatment or patient management decisions. Negative results must be combined with clinical observations, patient history, and epidemiological information. A false negative result may occur if a specimen is improperly collected, transported, or handled. A false negative result should be considered if patient's recent exposures or clinical presentation indicate that COVID-19 (SARS-CoV-2) is likely and diagnostic tests for other causes of illness are negative. Re-testing should be considered in cases of suspected false negatives.The limit of detection for this assay is 100 copies/mL.This SARS-CoV-2 test is a real-time RT_PCR test intended for the qualitative detection of nucleic acid from SARS-CoV-2 in a nasopharyngeal swab specimen collected from individuals suspected of COVID-19 by their healthcare provider.This test has not been Food and Drug Administration (FDA) cleared or approved. This is a modified version of an approved Emergency Use Authorization (EUA) and is in the process of review by the FDA. Once authorized by the FDA, the issued EUA will be e ffective until the declaration that circumstances exist justifying the authorization of the emergency use of in vitro diagnostic tests for detection and/or diagnosis of COVID-19 is terminated under Section 564(b)(2) of the Act or the EUA is revoked under Section 564(g) of the Act.Testing was performedusing the Colvin SARS-CoV-2 assay.Fact Sheet for Healthcare Providers:https://www.Brandsclub.colvin/heath/RT SARS-CoV-2 HCP Fact Sheet 51- 744976.pdfFact Sheet for Healthcare Patients:https://www.Brandsclub.colvin/heath/RT SARS-CoV-2 Patient Fact Sheet EN 51-008075T9.[id number] 12:01:09 Test Item Value Reference Range Interpretation Comments SODIUM (BEAKER) (test code = 381) 139 meq/L 136-145 POTASSIUM (BEAKER) (test code = 4.4 meq/L 3.5-5.1 379) CHLORIDE (BEAKER) (test code = 382) 103 meq/L 98-107 CO2 (BEAKER) (test code = 355) 30 meq/L 22-29 H Blueprint Tracer ID - SARAVANAN LBUN AND CREATININE [id number] 12:01:09 Test Item Value Reference Range Interpretation Comments BLOOD UREA NITROGEN 24 mg/dL 7-21 H (BEAKER) (test code = 354) CREATININE (BEAKER) 0.98 mg/dL 0.57-1.25 (test code = 358) BUN/CREAT RATIO 24 For a normal (BEAKER) (test code individu al on a = 3378257121) normal diet, t he reference inter ginny for the mass ra antonia ranges between 12:1 and 20:1 (BUN i n mg/dL/creatinin e in mg/dL) EGFR (BEAKER) (test 55 mL/min/1.73 ESTIMA BISI GFR IS code = 1092) sq m NOT ACCURATE CREATININE CLEARANCE IN PREDICTING GLOMERULAR FILTRATION RATE . ESTIMATED GFR I S NOT APPLICABLE FOR DIALYSIS PATIEN TS. Blueprint Tracer ID - SARAVANAN [id number] 11:44:44 Test Item Value Reference Range Interpretation Comments HEMOGLOBIN (BEAKER) (test code = 13.5 GM/DL 11.2-15.7 410) Blueprint Tracer ID - [id number] Description: SARS-CoV-2 (COVID-19) RNA [Presence] in Unspecified specimen by KAREN with probe [id number] 08:15:00 Test Item Value Reference Range Interpretation Comments SARS-CoV-2, Not Detected Not Detected This test was d eveloped and KAREN (test code its performan ce = 47560-1) characteristics determinedby Pr PhishMe. T his test has not been FDA cl eared orapproved. Thi s test has been authorized by FDA under an Emerge ncy UseAuthorizatio n (EUA). This test is on ly authorized for the duration oftime the decl aration that circumstances e xist justifying juvencio uthorization of the emergenc y use of in vitro diagnosti c tests fordetection of SARS-CoV-2 virus and/or di agnosis of COVID-19 infect ionunder section 564(b)( 1) of the Act, 21 U.S.C. 360bbb-3(b)(1), unlessthe authorization i s terminated or revoked soon er.When diagnostic test ing is negative, the p ossibility of a falsenegat lesly result should be consi dered in the context of a patient'srecent exposures and the presenc e of clinical signs and symptomsconsist ent with COVID-19. An in dividual without symptom s of COVID-19and who is not shedding SARS-C oV-2 virus would expect to have anegative (not detected) result in this assay.
<br/ >Performed by:
[employer] (CETOLI)

[employer]
[2022-03-17 17:46] LABS: Absolute Lymphocytes (CBC) 4.2 K/uL (0.7-4.9); Hematocrit 36.4 % (36.0-45.0); Lymphocytes % 45.4 % (15.3-44.8); MPV 8.7 fL (7.6-11.3); RBC Red Blood Cell Count 3.93 M/uL (3.86-4.86)
--- NOTE | 2022-03-17 17:47 | RAD REPORT ---
EXAM DESCRIPTION: CT - Abdomen Pelvis Wo Contrast - 03/17/2022 5:35 pm CLINICAL HISTORY: LUQ abdominal pain Patient is 3 months status post gastric bypass COMPARISON: No comparisons TECHNIQUE: Axial [address] imaging of the abdomen and pelvis was performed without IV contrast. No IV contrast was given because of allergy, abnormal renal function, patient refusal or physician re quest. No oral contrast administered. All CT scans are performed using dose optimization technique as appropriate and may include automated exposure control or mA/KV adjustment according to patient size. FINDINGS: No suspicious findings in the lung bases. The liver, spleen and pancreas show no suspicious findings on non-contrast imaging. Gallbladder and b iliary tree are also without suspicious finding. No hydronephrosis or suspicious renal mass. No significant adrenal finding. Isodense renal masses an d pyelonephritis cannot be excluded in the absence of IV contrast. Urinary bladder is fully contracte d limiting detail. Uterus and ovaries show no suspicious findings. Gastric bypass surgical changes are present. No extraluminal free air or abscess. Soft tissue thicken ing and stranding present along the proximal gastric staple line. Distal small bowel anastomotic site shows no suspicious or unexpected finding. No free fluid. Remainder of the small bowel is unremarka ble. No acute colon finding. No mass or bulky lymphadenopathy. No omental thickening. No suspicious bony findings. IMPRESSION: Soft tissue and stranding along the proximal aspect of the gastric anastomosis is presen t. This may still be within normal limits for relatively recent gastric bypass procedure. Distal anas tomosis is unremarkable. Gastritis or focal inflammatory change cannot be excluded. No abscess, extraluminal free air or other surgically emergent finding identifiable. Full assessment is limited is the absence of IV contrast.
[2022-03-17 17:58] LABS: Albumin 2.8 g/dL (3.4-5.0); Bilirubin Total 0.3 mg/dL (0.2-1.0); Potassium 3.9 mmol/L (3.5-5.1); Protein, Total 7.4 g/dL (6.4-8.2)
[2022-03-17] MEDS ORDERED: MORPHINE 4 MG/ML SYR ONE (18:28)
[2022-03-17] MEDS ORDERED: ONDANSETRON 4 MG/2 ML VIAL ONE (18:28)
[2022-03-17] MEDS ORDERED: NA CHLORIDE 0.9% 500 ML ONE (18:30)
[2022-03-17 19:36] LABS: Urine Blood Negative (Negative); Urine Glucose Negative (Negative); Urine Protein Negative (Negative); Urine Specific Gravity <=1.005 (1.005-1.030); Urine pH 5.5 (5.0-7.0)
[2022-03-17 19:52] LABS: Urine Bacteria <20 /HPF (<20); Urine RBC <5 /HPF (NONE SEEN)
--- NOTE | 2022-03-17 20:02 | EDPHYS ---
Physician Documentation [facility] Name: Dyana Frausto Age: 76 yrs Sex: Female : 1945 Arrival Date: 03/17/2022 Time: 16:53 Bed 7 Private MD: ED Physician Brigido Cornell HPI: 03/17 17:16 This 76 yrs old Female presents to ER via Ambulatory with complaints of Side Pain pm1 radiates to Back. 17:16 The patient complains of pain in the left mid back and left upper quadrant. Onset: The pm1 symptoms/episode began/occurred 3 day(s) ago. Modifying factors: The symptoms are alleviated by nothing. the symptoms are aggravated by nothing. Associated signs and symptoms: Pertinent negatives: diarrhea, dysuria, fever, nausea, vomiting. Severity of pain: in the emergency department the pain is unchanged. The patient has not experienced similar symptoms in the past. The patient has not recently seen a physician. Historical: - Allergies: 17:07 PENICILLINS; vg1 17:07 Codeine; vg1 17:07 Sulfa (Sulfonamide Antibiotics); vg1 17:07 Iodine; Contrast; vg1 - Home Meds: 17:07 Lisinopril Oral [Active]; vg1 - PMHx: 17:07 Hypertensive disorder; Hypothyroidism; vg1 - PSHx: 17:07 Hernia Repair; Gastric Bypass; vg1 - Immunization history:: Client reports having NOT received the Covid vaccine. - Social history:: Smoking status: Patient denies any tobacco usage or history of. ROS: 17:16 Constitutional: Negative for fever, chills, and weight loss, Cardiovascular: Negative pm1 for chest pain, palpitations, and edema, Respiratory: Negative for shortness of breath, cough, wheezing, and pleuritic chest pain. 17:16 : Negative for injury, bleeding, discharge, and swelling, MS/Extremity: Negative for injury and deformity, Skin: Negative for injury, rash, and discoloration, Neuro: Negative for headache, weakness, numbness, tingling, and seizure. 17:16 Abdomen/GI: Positive for abdominal pain, of the left upper quadrant, Negative for nausea, vomiting, and diarrhea, constipation. 17:16 All other systems are negative. Exam: 17:16 Constitutional: This is a well developed, well nourished patient who is awake, alert, pm1 and in no acute distress. Head/Face: Normocephalic, atraumatic. 17:16 Skin: Warm, dry with normal turgor. Normal color with no rashes, no lesions, and no evidence of cellulitis. MS/ Extremity: Pulses equal, no cyanosis. Neurovascular intact. Full, normal range of motion. 17:16 Cardiovascular: Exam negative for acute changes, Rate: normal, Rhythm: regular, Pulses: no pulse deficits are appreciated, Heart sounds: normal. 17:16 Respiratory: Exam negative for acute changes, respiratory distress, shortness of breath, Breath sounds: are clear throughout. 17:16 Abdomen/GI: Inspection: abdomen appears normal, Palpation: soft, in all quadrants. 17:16 Back: pain, that is mild, of the left mid back, vertebral tenderness, is not appreciated. 17:16 Neuro: Exam negative for acute changes, Orientation: is normal, Mentation: is normal, Motor: is normal, moves all fours. Vital Signs: 17:03 BP 171 / 83; Pulse 73; Resp 16; Temp 98.4; Pulse Ox 100% ; Weight 71.21 kg; Height 5 vg1 ft. 3 in. (160.02 cm); Pain 8/10; 18:30 BP 200 / 94; Pulse 67; Resp 15; Pulse Ox 100% ; jl7 19:45 BP 172 / 86; Pulse 79 MON; Resp 18 S; Pulse Ox 100% on R/A; as6 17:03 Body Mass Index 27.81 (71.21 kg, 160.02 cm) vg1 MDM: 17:59 Patient medically screened. pm1 20:01 Data reviewed: vital signs. Data interpreted: Pulse oximetry: on room air is 100 %. pm1 Interpretation: normal. Counseling: I had a detailed discussion with the patient and/or guardian regarding: the historical points, exam findings, and any diagnostic results supporting the discharge/admit diagnosis, lab results, radiology results, the need for outpatient follow up, to return to the emergency department if symptoms worsen or persist or if there are any questions or concerns that arise at home. 20:21 ED course: CT without any acute findings. 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 Lab findings do not indicate any type of infection or bleeding. Recommend follow-up with patient's surgeon and primary care physician. 03/17 17:13 Order name: CBC with Diff; Complete Time: 18:12 vg1 03/17 17:13 Order name: CMP; Complete Time: 18:12 vg1 03/17 17:13 Order name: Lipase; Complete Time: 18:12 vg1 03/17 17:18 Order name: CT Abd/Pelvis - Without Contrast; Complete Time: 18:12 pm1 03/17 18:22 Order name: Urine Microscopic Only; Complete Time: 19:54 pm1 03/17 19:36 Order name: Urine Dipstick-Ancillary; Complete Time: 19:54 EDMS 03/17 17:13 Order name: IV Saline Lock; Complete Time: 17:34 vg1 03/17 17:13 Order name: Labs collected and sent; Complete Time: 17:34 vg1 03/17 17:15 Order name: Urine Dipstick-Ancillary (obtain specimen); Complete Time: 19:34 vg1 Administered Medications: 18:30 Drug: morphine 4 mg Route: IVP; Site: right antecubital; jl7 20:27 Follow up: Response: No adverse reaction; RASS: Alert and Calm (0) as6 18:30 Drug: Zofran (Ondansetron) 4 mg Route: IVP; Site: right antecubital; jl7 20:28 Follow up: Response: No adverse reaction as6 18:30 Drug: NS 0.9% 500 ml Route: IV; Rate: bolus; Site: right antecubital; jl7 20:28 Follow up: Response: No adverse reaction; IV Status: Completed infusion; IV Intake: as6 500ml Disposition: 03/18 12:22 Co-signature as Attending Physician, Brigido Cornell MD. rn Disposition Summary: 03/17/22 20:02 Discharge Ordered Location: Home pm1 Problem: new pm1 Symptoms: have improved pm1 Condition: Stable pm1 Diagnosis - Left flank pain pm1 Followup: pm1 - With: Emergency Department - When: As needed - Reason: Worsening of condition Followup: pm1 - With: Private Physician - When: 2 - 3 days - Reason: Recheck today's complaints, Continuance of care, Re-evaluation by your physician Discharge Instructions: - Discharge Summary Sheet pm1 - Flank Pain, Adult pm1 Forms: - Medication Reconciliation Form pm1 - Thank You Letter pm1 - Antibiotic Education pm1 - Prescription Opioid Use pm1 Prescriptions: - Tylenol-Codeine #3 300 mg-30 mg Oral - take 2 tablet by ORAL route every 6 hours As needed; 20 tablet; Refills: 0, pm1 Product Selection Permitted Signatures: Dispatcher [employer] EDBrigido Dawn MD MD rn Marinas, Patrick, CERTIFIED MEDICAL AIDE CERTIFIED MEDICAL AIDE pm1 Fernando Cabral RN RN jl7 Ammy Zuniga RN RN vg1 Tamiko Sykes PA PA sb3 Jann Jarvis RN as6
--- NOTE | 2022-03-17 20:02 | ER ---
Nurse's Notes [facility] Name: Dyana Frausto Age: 76 yrs Sex: Female : 1945 Arrival Date: 03/17/2022 Time: 16:53 Bed 7 Private MD: Diagnosis: Left flank pain Presentation: 03/17 17:03 Chief complaint: Patient states: "pain starts under my Left rib and goes around to my vg1 back; I have bypass sx on my stomach about three months ago and a hernia repair and my doctor thinks this may be the reason for the pain". Denies [place]. Coronavirus screen: Vaccine status: Patient reports being unvaccinated. Client denies travel out of the [place] in the last 14 days. Ebola Screen: Patient denies exposure to infectious person. Patient denies travel to an Ebola-affected area in the 21 days before illness onset. Initial Sepsis Screen: Does the patient meet any 2 criteria? No. Patient's initial sepsis screen is negative. Does the patient have a suspected source of infection? No. Patient's initial sepsis screen is negative. Risk Assessment: Do you want to hurt yourself or someone else? Patient reports no desire to harm self or others. Onset of symptoms was March 14, 2022. 17:03 Method Of Arrival: Ambulatory vg1 17:03 Acuity: GENARO 3 vg1 Triage Assessment: 17:07 General: Appears in no apparent distress. uncomfortable, Behavior is calm, cooperative. vg1 Pain: Complains of pain in posterior aspect of left lateral abdomen and left upper quadrant Pain currently is 8 out of 10 on a pain scale. Historical: - Allergies: 17:07 PENICILLINS; vg1 17:07 Codeine; vg1 17:07 Sulfa (Sulfonamide Antibiotics); vg1 17:07 Iodine; Contrast; vg1 - Home Meds: 17:07 Lisinopril Oral [Active]; vg1 - PMHx: 17:07 Hypertensive disorder; Hypothyroidism; vg1 - PSHx: 17:07 Hernia Repair; Gastric Bypass; vg1 - Immunization history:: Client reports having NOT received the Covid vaccine. - Social history:: Smoking status: Patient denies any tobacco usage or history of. Screenin:30 Abuse screen: Denies threats or abuse. Denies injuries from another. Nutritional jl7 screening: No deficits noted. Tuberculosis screening: No symptoms or risk factors identified. Fall Risk IV access (20 points). Total Vazquez Fall Scale indicates No Risk (0-24 pts). Assessment: 18:30 General: Appears in no apparent distress. uncomfortable, Behavior is cooperative, jl7 crying. Pain: Complains of pain in posterior aspect of left lateral abdomen Pain currently is 8 out of 10 on a pain scale. Neuro: Hutchison Agitation-Sedation Scale (RASS): +1 Restless Level of Consciousness is awake, alert, obeys commands, Oriented to person, place, time, situation. Cardiovascular: Patient's skin is warm and dry. Respiratory: Airway is patent Respiratory effort is even, unlabored, Respiratory pattern is regular, symmetrical. Derm: Skin is pink, warm \\T\\ dry. 19:46 Reassessment: Patient appears in no apparent distress at this time. Patient states as6 feeling better. Vital Signs: 17:03 BP 171 / 83; Pulse 73; Resp 16; Temp 98.4; Pulse Ox 100% ; Weight 71.21 kg; Height 5 vg1 ft. 3 in. (160.02 cm); Pain 8/10; 18:30 BP 200 / 94; Pulse 67; Resp 15; Pulse Ox 100% ; jl7 19:45 BP 172 / 86; Pulse 79 MON; Resp 18 S; Pulse Ox 100% on R/A; as6 17:03 Body Mass Index 27.81 (71.21 kg, 160.02 cm) vg1 ED Course: 16:53 Patient arrived in ED. ds1 17:04 Jamison Morales NP is PHCP. pm1 17:04 Brigido Cornell MD is Attending Physician. pm1 17:07 Triage completed. vg1 17:07 Arm band placed on. vg1 17:30 Initial lab(s) drawn, by ED staff, sent to lab. jl7 17:33 Inserted saline lock: 20 gauge in right antecubital area, using aseptic technique. zm Blood collected. 17:34 Lipase Sent. zm 17:34 CMP Sent. zm 17:34 CBC with Diff Sent. zm 17:36 CT Abd/Pelvis - Without Contrast In Process Unspecified. EDMS 18:19 Fernando Cabral, CECILIO is Primary Nurse. jl7 18:30 Patient has correct armband on for positive identification. Bed in low position. Call jl7 light in reach. Side rails up X 1. staff field engineer on. Pulse ox on. 19:38 Primary Nurse role handed off by Fernando Cabral RN ld1 19:42 Jann Jarvis, RN is Primary Nurse. as6 20:15 No provider procedures requiring assistance completed. IV discontinued, intact, as6 bleeding controlled, No redness/swelling at site. Pressure dressing applied. Administered Medications: 18:30 Drug: morphine 4 mg Route: IVP; Site: right antecubital; jl7 20:27 Follow up: Response: No adverse reaction; RASS: Alert and Calm (0) as6 18:30 Drug: Zofran (Ondansetron) 4 mg Route: IVP; Site: right antecubital; jl7 20:28 Follow up: Response: No adverse reaction as6 18:30 Drug: NS 0.9% 500 ml Route: IV; Rate: bolus; Site: right antecubital; jl7 20:28 Follow up: Response: No adverse reaction; IV Status: Completed infusion; IV Intake: as6 500ml Intake: 20:28 IV: 500ml; Total: 500ml. as6 Outcome: 20:02 Discharge ordered by MD. pm1 20:15 Discharged to home ambulatory, with family. as6 20:15 Condition: stable 20:15 Discharge instructions given to patient, Instructed on discharge instructions, follow up and referral plans. medication usage, Demonstrated understanding of instructions, follow-up care, medications, Prescriptions given X 1. 20:15 Patient left the ED. as6 Signatures: Dispatcher [employer] [facility] Madonna Bajwa dsJamison Jimenez, ELVIRA FOOD SPECIALIST pm1 Fernando Cabral, RN RN [email or web address] Ammy Zuniga RN RN vg1 Dolores Pickard RN RN ld1 Jann Jarvis, RN RN as6 Kalee Brewer
[2022-03-17 21:08] VITALS: TEMP 98.4; O2SAT 100
[2022-03-17 21:11] VITALS: BP 172/86
== END 2022-03-17 20:15 | disposition home or self-care (01) ==
LOC: ER 16:51
DX: R10.9 Unspecified abdominal pain (principal); I10 Essential (primary) hypertension; E03.9 Hypothyroidism, unspecified; Z88.0 Allergy status to penicillin; Z88.2 Allergy status to sulfonamides; Z88.5 Allergy status to narcotic agent; Z91.041 Radiographic dye allergy status; Z91.048 Other nonmedicinal substance allergy status
CPT/HCPCS: 85025; 36415; 83690; 80053; 74176; J7040; J2405; 81003; 81015; 96361; 96374; 96375; 99284

== ENCOUNTER 2022-09-07 13:37 | Inpatient (IN) | payer OTHER ==
--- OUTSIDE RECORDS SUMMARY | 2022-09-07 13:45 | XMS REPORT | Continuity of Care Document ---
:1945 Author Organization [facility] t Address [address] [place] [address] Dr. Magallon. [address] [place] [address] Care Team Providers Name Role Phone ARVIN MARR Primary Care Physician Unavailable ANISH BARNETT Attending Clinician Unavailable CHRISTINE ARCHULETA Attending Clinician Unavailabl e ANISH BARNETT Attending Clinician Unavailable Anish Barnett Attending Clinician LACEY STOCK Attending Clinician Unavailable GABRIELLA SAHA Attending Clinician Unavailable 1, [facility] Room Attending Clinician Unavailable Charles Banegas MD Attending Clinician CHARLES BANEGAS Attending Clinician Unavailable Lizzie Attending Clinician Unavailable Forest Lemus MD Attending Clinician Libia Segura CRNA Attending Clinician [phone] Rosalie Cardona MD Attending Clinician [phone] Lacey Stock MD Attending Clinician LACEY STOCK Attending Clinician Unavailable Ayden MARTINEZ, Daily Attending Clinician Homero Baird CRNA Attending Clinician [phone] Brian MARTINEZ, Raquel Kemp Attending Clinician Rohan MARTINEZ, Risa Bowden Attending Clinician [phone] ROBERT DIOP Attending Clinician Unavailable Ulises MARTINEZ, Veronica Choudhury Attending Clinician Cindi FRESH WORK WRAPPER LAYER, Kirit Fu Attending Clinician Montrell MARTINEZ, Lacey Kim Attending Clinician Gabriella Saha RD Attending Clinician Aj MARTINEZ, Neetu Attending Clinician BIENVENIDO GONZALES Attending Clinician Unavailable IVORY [facility] Attending Clinician Unavailable Blu Attending Clinician Unavailable ANISH BARNETT Admitting Clinician Unavailable CHRISTINE ARCHULETA Admitting Clinician Unavailgarland Samuel Admitting Clinician Unavailable LACEY STOCK Admitting Clinician Unavailable Blu Admitting Clinician Unavailable Payers Payer Name Policy Type Policy Number Effective Date Expiration Date Nini rosado UNITED MEDICARE HMO [id number] 2021 00:00:00 MEDICARE ADVANTAGE [id number] [facility] MEDICARE PART A \\T\\ [id number] B - MEDICARE [facility] [id number] (MEDICARE REPLACEMENT/ADVANTA GE - PPO) MEDICARE B-[place]: [id number] 2012 [employer] 00:00:00 Problems Condition Condition Condition Status Onset Resolution Last Treating Co mments Source Name Details Category Date Date Treatment Clinician Date Disorder Disorder Problem Active [place] [facility] of Thyroid 8 da gland [facility] Hypertensi Hypertensi Problem Active M [facility] ve ve 8-29 da disorder Disorder [facility] Abdominal Abdominal Disease [facility] Obesity Obesity Disease [facility] Allergies, Adverse Reactions, Alerts Allergy Allergy Status Severity Reaction(s) Onset Inactive Treating Comm ents Source Name Type Date Date Clinician Penicill Allergy Active Mild 0 [facility] in to 7-20 S substanc 00:00: Health e 00 Sulfonam Allergy Active Mild [facility] misty to 7-20 S substanc 00:00: Health e 00 Iodine Allergy Active Mild [facility] to 7-20 S substanc 00:00: Health e 00 Codeine Allergy Active Mild [facility] to 7-20 S substanc 00:00: Health e Iodinate Propensi Active 2020-11 Other [facility] d ty to 11-16 reaction( [place] Diagnost adverse 00:00: s): of ic reaction 00 Unknown Medicin Agents s to e drug ACETIC Allergy Active [facility] 00 [place] Acetic Propensi Active [facility] Acid ty to 818 College adverse 00:00: of reaction 00 Medicin s to e drug CIPROFLO Allergy Active 2019-[address] [facility] XACIN 130 [facility] 00 [place] Ciproflo Propensi Active 2019-11 [facility] xacin ty to 1 College adverse 00:00: of reaction 00 Medicin s to e drug Ciproflo Drug Active 2019-[address] [facility] [address] xacin Allergy 30 [facility] CODEINE Allergy Active High Swelling 2018-[address] [facility] IODINE Allergy Active High Swelling 2018-[address] [facility] PENICILL Allergy Active [facility] 2018-11 [facility] SULFA Allergy Active High Swelling 2018-[address] [facility] [facility] (SULFONA 11-21 [facility] MIDE 00:[facility]: Medical ANTIBIOT 00 Center ICS) TRAMADOL Allergy Active Other 2018-[address] [facility] Tramadol Propensi Active Other (See 2018-11 [facility] ty to Comments) 11-21 College adverse 00:00: of reaction 00 Medicin s to e drug Codeine Propensi Active Other (See 2018-11 [facility] nataliya ty to Comments) 11-21 College adverse [...] comments) Other reaction( s): Other (see comments) Codeine Drug Active Swelling, 2018-[address] [facility] [address] Allergy Rash 11-21 reaction( [facility] 00:[facility]: s): Other Medical 00 (see Center comments) , Other (See Comments) Iodine Drug Active Swelling 2018-[address] [facility] Allergy 11-21 reaction( [facility] 00:00: s): Other Medical 00 (see Center comments) Penicill Drug Active Swelling, 2018-11 Other [facility] Allergy Other (See 11-21 reaction( Cceilia kes Comments) 00:00: s): Other Medi zabrina 00 (see Center comments) Sulfa Drug Active Swelling, 2018-[address] (Sulfona Allergy Rash, Other 11-21 reaction( [facility] mide (See 00:00: s): Other Medical Antibiot Comments) 00 (see Cente r ics) comments) Social History Social Habit Start Date Stop Date Quantity Comments Source History [facility] ge Alcohol Std Drinks of Med icine History [facility] ge Alcohol Binge of Medicine History [facility] ge Alcohol Comment of Medici ne History of tobacco Passive smoker [facility] use of Medicine Exposure to 2022-07-29 2022-08-[address] [facility] SARS-CoV-2 (event) 00:00:00 14:35:00 [facility] Alcohol intake 2022-08-08 2022-08-08 Ex-drinker [facility] 00:00[facility]00 00:00:00 (finding) Medical Center History OKOH 2022-01-16 2022-01-16 1 [facility] Alexia ge Alcohol Frequency 00:00:00 00:00:00 of Medi cine Tobacco use and 2021-07-17 2021-07-17 Never used TATIANA Farmer exposure 00:00:00 00:00:00 [facility] Sex Ass[birth year] At [birth year] TATIANA Farmer 00:00:00 00:00:00 [facility] Smoking Status Start Date Stop Date Source Unknown if ever smoked [employer] Never smoked tobacco [facility] Sandra ege of Medicine Medications Ordered Filled Start Stop Current Ordering Indication Dosage Frequency Signature Comments Components Source Medication Medication Date Date Medication? Clinician (SIG) Name Name predniSONE 2021-11 Yes prednisone [facility] (DELTASONE) 0-13 5 mg College 5 MG tablet 08:31: tablet of 28 TAKE 1 Medicin TABLET BY e MOUTH ONCE DAILY ondansetron 2021-11- No ondansetro Jeff (ZOFRAN) 4 0-13 10-13 n HCl 4 mg Co llege MG tablet 08:31: 00:00 tablet of 09 :00 TAKE 1 Medicin TABLET BY e MOUTH EVERY 8 HOURS NEEDED FOR NAUSEA FOR UP TO 21 DAYS Scopolamine 2021-11- No scopolamin [facility] 1 MG/3DAYS 0-13 10-13 e 1 mg Colleg e PT72 08:31: 00:00 over 3 of 09 :00 days Medicin transderma e l patch APPLY 1 PATCH TOPICALLY EVERY 3 DAYS gabapentin 2021-11- Yes [id number] 100mg Take 1 [facility] (NEURONTIN) 0-06 11-06 capsule by [facility] verdin 100 MG 00:00: 04:59 mouth 3 of capsule 00 :00 times Medicin daily for e 30 days. multivitami Yes IV [facility] n per - infusion 2 [facility] tablet 14:29: X A MONTH. Medic al 50 [place] multivitami Yes IV [facility] n per 9- infusion 2 [facility] tablet 14:29: X A MONTH. Medic al 50 [place] metoprolol Yes 200mg QD Take [address] succinate 9-23 mg by [facility] (TOPROL-XL) 14:27: mouth Medic al 200 MG 24 52 daily. Center hr tablet lisinopriL 2-0 Yes 40mg QD Take [address] (PRINIVIL,Z 9-23 by mouth Luke s ESTRIL) 40 14:27: daily. Medic al MG tablet 52 Center levothyroxi 2021-0 Yes 100ug Take [address] ne 9-23 mcg by [facility] (Euthyrox) 14:27: mouth Medica l 100 MCG 52 Every Center tablet morning on an empty stomach. cloNIDine 2022-0 Yes .1mg Q.5D Take 0.[address] [facility] HCL 9-23 mg by [facility] (CATAPRES) 14:27: mouth 2 Medi zabrina 0.1 MG 52 (two) Center tablet times daily Take as needed for high bp. metoprolol 2021-0 Yes 200mg QD Take [address] succinate 9-23 mg by [facility] (TOPROL-XL) 14:27: mouth Medic al 200 MG 24 52 daily. Center hr tablet lisinopriL 2021-0 Yes 40mg QD Take [address] (PRINIVIL,Z 9-23 by mouth Luke s ESTRIL) 40 14:27: daily. Medic al MG tablet 52 Center levothyroxi 2021-0 Yes 100ug Take [address] ne 9-23 mcg by [facility] (Euthyrox) 14:27: mouth Medica l 100 MCG 52 Every Center tablet morning on an empty stomach. cloNIDine 2-0 Yes .1mg Q.5D Take 0.[address] [facility] HCL 9-23 mg by [facility] (CATAPRES) 14:27: mouth 2 Medi zabrina 0.1 MG 52 (two) Center tablet times daily Take as needed for high bp. hydroxychlo 2021-0 Yes 200mg Take 200 [facility] roquine 9-09 mg by [place] (PLAQUINIL) 00:00: mouth two o f 200 MG 00 times Medicin tablet daily. e EUTHYROX 75 2021-0 Yes 75ug Take 75 [facility] antaliya MCG tablet 9-07 mcg by [place] 00:00: mouth of 00 daily. Medicin e predniSONE 2021-0 Yes prednisone [facility] (DELTASONE) 9-01 5 mg College 5 MG tablet 14:40: tablet of 44 TAKE 1 Medicin TABLET BY e MOUTH ONCE DAILY ondansetron 0 Yes ondansetro Jeff (ZOFRAN) 4 07-17 n HCl 4 mg Col lege MG tablet 14:40: tablet of 44 TAKE 1 Medicin TABLET BY e MOUTH EVERY 8 HOURS NEEDED FOR NAUSEA FOR UP TO 21 DAYS Scopolamine Yes scopolamin [facility] 1 MG/3DAYS 07-17 e 1 mg [place] PT72 14:40: over 3 of 44 days Medicin transderma e l patch APPLY 1 PATCH TOPICALLY EVERY 3 DAYS Multiple 2021- No 1{tbl} Take 1 [facility] Vitamin 07-17 Tablet by Daphne mccann (ONE-DAILY 14:40: 00:00 mouth. of MULTIVITAMI 25 :00 Medicin NS) TABS e diphenoxyla Yes 1{tbl} Take 1 [facility] te-atropine 07-17 Tablet by Col lege (LOMOTIL) 00:00: mouth 4 of 2.5-0.025 00 times Medicin MG per daily as e tablet needed for Diarrhea. diphenoxyla Yes 1{tbl} Take 1 [facility] te-atropine 07-17 Tablet by Col [facility]ge (LOMOTIL) 00:00: mouth 4 of 2.5-0.025 00 times Medicin MG per daily as e tablet needed for Diarrhea. pantoprazol 2021- Yes 40mg Take 1 [facility] nataliya e 07-17 Tablet by [place] (PROTONIX) 00:00: 05:59 mouth of 40 MG 00 :00 daily for Medicin tablet 90 days. e pantoprazol 2021- No 40mg Take 1 [facility] nataliya e 07-17 Tablet by [place] (PROTONIX) 00:00: 00:00 mouth of 40 MG 00 :00 daily for Medicin tablet 90 days. e nystatin Yes [facility] (MYCOSTATIN 07-16 [place] ) cream 00:00: of 00 Medicin e nystatin Yes [facility] (MYCOSTATIN 07-16 [place] ) cream 00:00: of 00 Medicin e Euthyrox Euthyrox No Euthyrox M [facility] 100 mcg 100 mcg 8-29 100 mcg da tablet TAKE tablet TAKE 00:00: tablet [facility] 1 TABLET BY 1 TABLET BY 00 TAKE 1 al MOUTH ONCE MOUTH ONCE TABLET BY Health DAILY DAILY MOUTH ONCE Outreac DAILY h Program nystatin nystatin No nystatin M [place] 100,000 100,000 8-29 100,000 da unit/gram unit/gram 00:00: unit/gram [facility] topical topical 00 topical al cream APPLY cream APPLY cream Health CREAM CREAM APPLY Outreac TOPICALLY TOPICALLY CREAM h TWICE DAILY TWICE DAILY TOPICALLY Program TWICE DAILY potassium Yes potassium [facility] nataliya chloride SA 8-24 chloride Sandra ege (K-DUR, 00:00: ER 20 mEq of KLOR-CON 00 tablet,ext Medic in M20) 20 MEQ ended e tablet release(pa rt/cryst) potassium potassium [facility] chloride SA 8-24 10-13 chloride Col [facility] (K-DUR, 00:00: 00:00 ER 20 mEq of KLOR-CON 00 :00 tablet,ext Medic in M20) 20 MEQ ended e tablet release(pa rt/cryst) levothyroxi Yes Euthyrox [facility] ne 8-15 88 mcg [place] (SYNTHROID) 00:00: tablet of 88 MCG 00 TAKE 1 Medicin tablet TABLET BY e MOUTH ONCE DAILY levothyroxi No Euthyrox [facility] ne 8-15 10-13 88 mcg [place] (SYNTHROID) 00:00: 00:00 tablet of 88 MCG 00 :00 TAKE 1 Medicin tablet TABLET BY e MOUTH ONCE DAILY tramadol Yes 1{tbl} Take 1 [facility] (ULTRAM) 50 8-01 Tablet by Col lege MG tablet 00:00: mouth of 00 every 8 Medicin hours as e needed for Pain for up to 21 doses. ferrous Yes ferrous [facility] sulfate 325 5-31 sulfate Colle ge (65 Fe) MG 00:00: 325 mg (65 o f EC tablet 00 mg iron) Medici n tablet,del e ayed release TAKE 1 TABLET BY MOUTH ONCE DAILY ferrous Yes ferrous Jeff sulfate 325 5-31 sulfate Colle ge (65 Fe) MG 00:00: 325 mg (65 o f EC tablet 00 mg iron) Medici n tablet,del e ayed release TAKE 1 TABLET BY MOUTH ONCE DAILY Multiple Yes 1{tbl} Take 1 [facility] Vitamin 3-28 Tablet by [place] (ONE-DAILY 12:58: mouth. of MULTIVITAMI 01 Medicin NS) TABS e Famotidine- 2021- No 1{tbl} Take 1 [facility] Ca Carb-Mag -10 02- Tablet by Co llege Hydrox 12:57: 00:00 mouth. of 10-800-165 26 :00 Medicin MG CHEW e tramadol Yes 1{tbl} Take 1 [facility] (ULTRAM) 50 -28 Tablet by Col lege MG tablet 00:00: mouth of 00 every 8 Medicin hours as e needed for Pain. tramadol 2021- No 1{tbl} Take 1 [facility] (ULTRAM) 50 3-13 08- Tablet by Co llege MG tablet 00:00: 00:00 mouth of 00 :00 every 8 Medicin hours as e needed for Pain. gabapentin 2021- No 600mg Q.5D Take [address] [facility] (NEURONTIN) 2-18 - capsules [place] [facility] 300 MG 00:00: 23:59 (600 mg Medical capsule 00 :00 total) by Center mouth 2 (two) times daily for 10 days. ondansetron 2021- No 4mg Take [address] [facility] (ZOFRAN) 4 -18 - tablet (4 [place] [facility] MG tablet 00:00: 23:59 mg total) Me dical 00 :00 by mouth 3 Center (three) times daily as needed for Nausea for up to 10 days. gabapentin 2021- No 600mg Q.5D Take [address] [facility] (NEURONTIN) 2-18 - capsules [place] [facility] 300 MG 00:00: 23:59 (600 mg Medical capsule 00 :00 total) by Center mouth 2 (two) times daily for 10 days. ondansetron 2021- No 4mg Take [address] [facility] (ZOFRAN) 4 2-18 -28 tablet (4 [place] [facility] MG tablet 00:00: 23:59 mg total) Me dical 00 :00 by mouth 3 Center (three) times daily as needed for Nausea for up to 10 days. Multiple Yes 1{tbl} Take 1 [facility] Vitamin 2-03 Tablet by [place] (ONE-DAILY 10:19: mouth. of MULTIVITAMI 06 Medicin NS) TABS e Multiple 2022-0 Yes 1{tbl} Take 1 [facility] Vitamin 2-03 Tablet by [place] (ONE-DAILY 10:19: mouth. of MULTIVITAMI 06 Medicin NS) TABS e ondansetron 2022-0 Yes 4mg Take 1 [facility] (ZOFRAN) 4 2-03 Tablet by Sandra ege MG tablet 00:00: mouth of 00 every 8 Medicin hours as e needed for Nausea for up to 21 doses. Scopolamine 2022-[address] 1 mg Jeff 1 MG/3DAYS 2-03 onto the [facility] PT72 00:00: skin every of 00 3 days. Medicin e HYDROmorpho 2022-0 Yes 2mg Take 1 [facility] ne 2-03 Tablet by [place] (DILAUDID) 00:00: mouth of 2 MG tablet [...] Scopolamine 2022-[address] 1 mg [facility] 1 MG/3DAYS 2-03 onto the [facility] PT72 00:00: skin every of 00 3 days. Medicin e HYDROmorpho 2022-0 Yes 2mg Take 1 [facility] ne 2-03 Tablet by [place] (DILAUDID) 00:00: mouth of 2 MG tablet 00 every 3 Medic in hours as e needed for Pain for up to 30 doses. ondansetron 2022-0 2022- No 4mg Take 1 [facility] (ZOFRAN) 4 2-03 -28 Tablet by Col lege MG tablet 00:00: 00:00 mouth of 00 :00 every 8 Medicin hours as e needed for Nausea for up to 21 doses. Scopolamine 2022-0 2022- No 1mg Place 1 mg [facility] 1 MG/3DAYS 2-03 -28 onto the Sandra ege PT72 00:00: 00:00 skin every of 00 :00 3 days. Medicin e HYDROmorpho 2022-0 2022- No 2mg Take 1 [facility] nataliya ne 2-03 03-28 Tablet by [place] (DILAUDID) 00:00: 00:00 mouth of 2 MG tablet 00 :00 every 3 Medic in hours as e needed for Pain for up to 30 doses. gabapentin 0 2021- No 300mg Take 1 [facility] (NEURONTIN) 12-19 capsule by [facility] verdin 300 MG 00:00: 05:59 mouth 3 of capsule 00 :00 times Medicin daily for e 21 doses. Empty contents in 5 mls of water estradiol 2020-11 Yes [facility] (ESTRACE) 1-11 College 0.1 MG/GM 00:00: of vaginal 00 Medicin cream e estradiol 2020-11 Yes [facility] (ESTRACE) 1-11 College 0.1 MG/GM 00:00: of vaginal 00 Medicin cream e estradiol 2020-11 Yes [facility] (ESTRACE) 1-11 College 0.1 MG/GM 00:00: of vaginal 00 Medicin cream e estradiol 2020-11 Yes [facility] (ESTRACE) 1-11 College 0.1 MG/GM 00:00: of vaginal 00 Medicin cream e estradiol 2020-11 Yes [facility] (ESTRACE) 1-11 College 0.1 MG/GM 00:00: of vaginal 00 Medicin cream e estradiol 2020-11 Yes [facility] (ESTRACE) 1-11 [place] 0.1 MG/GM 00:00: of vaginal 00 Medicin cream e Multiple Yes 1{tbl} Take 1 [facility] Vitamin 9-22 Tablet by [place] (ONE-DAILY 10:27: mouth. of MULTIVITAMI 49 Medicin NS) TABS e Famotidine- Yes 1{tbl} Take 1 [facility] Ca Carb-Mag 9-22 Tablet by Col lege Hydrox 10:27: mouth. of -165 49 Medicin MG CHEW e Multiple Yes 1{tbl} Take 1 [facility] Vitamin 9-22 Tablet by [place] (ONE-DAILY 10:27: mouth. of MULTIVITAMI 49 Medicin NS) TABS e Famotidine- Yes 1{tbl} Take 1 [facility] Ca Carb-Mag 9-22 Tablet by Col [facility]ge Hydrox 10:27: mouth. of 800-165 49 Medicin MG CHEW e Multiple Yes 1{tbl} Take 1 [facility] Vitamin 9-22 Tablet by College (ONE-DAILY 10:27: mouth. of MULTIVITAMI 49 Medicin NS) TABS e Famotidine- 2020-0 Yes 1{tbl} Take 1 [facility] Ca Carb-Mag 9-22 Tablet by Col [facility] Hydrox 10:27: mouth. of - 49 Medicin MG CHEW e Famotidine- 2020-0 Yes 1{tbl} Take 1 [facility] Ca Carb-Mag 9-22 Tablet by Col [facility] Hydrox 10:27: mouth. of - 49 Medicin MG CHEW e Famotidine- 0 Yes 1{tbl} Take 1 [facility] Ca Carb-Mag 9-22 Tablet by Col [facility]ge Hydrox 10:27: mouth. of - 49 Medicin MG CHEW e Multiple Yes 1{tbl} Take 1 [facility] Vitamin 9-22 Tablet by [place] (ONE-DAILY 10:27: mouth. of MULTIVITAMI 49 Medicin NS) TABS e Famotidine- 2020-0 Yes 1{tbl} Take 1 [facility] Ca Carb-Mag 9-22 Tablet by Col [facility] Hydrox 10:27: mouth. of 49 Medicin MG CHEW e Multiple Yes 1{tbl} Take 1 [facility] Vitamin 9-22 Tablet by [place] (ONE-DAILY 10:27: mouth. of MULTIVITAMI 49 Medicin NS) TABS e Famotidine- 2020-0 Yes 1{tbl} Take 1 [facility] Ca Carb-Mag 9-22 Tablet by Col [facility]ge Hydrox 10:27: mouth. of 49 Medicin MG CHEW e Multiple 0 Yes 1{tbl} Take 1 [facility] Vitamin 9-22 Tablet by College (ONE-DAILY 10:27: mouth. of MULTIVITAMI 49 Medicin NS) TABS e Famotidine- 2020-0 Yes 1{tbl} Take 1 [facility] Ca Carb-Mag 9-22 Tablet by Col [facility]ge Hydrox 10:27: mouth. of - 49 Medicin MG CHEW e clonidine 0 Yes [facility] (CATAPRES) 8-16 [place] 0.1 MG 00:00: of tablet 00 Medicin e clonidine 2020-0 Yes [facility] (CATAPRES) 8-16 College 0.1 MG 00:00: of tablet 00 Medicin e clonidine 2020-0 Yes [facility] (CATAPRES) 8-16 College 0.1 MG 00:00: of tablet 00 Medicin e clonidine 2020-0 Yes [facility] (CATAPRES) 8-16 College 0.1 MG 00:00: of tablet 00 Medicin e clonidine 2020-0 Yes [facility] (CATAPRES) 8-16 College 0.1 MG 00:00: of tablet 00 Medicin e clonidine 2020-0 Yes [facility] (CATAPRES) 8-16 College 0.1 MG 00:00: of tablet 00 Medicin e clonidine 2020-0 Yes [facility] (CATAPRES) 8-16 College 0.1 MG 00:00: of tablet 00 Medicin e clonidine 2020-0 Yes [facility] (CATAPRES) 8-16 College 0.1 MG 00:00: of tablet 00 Medicin e clonidine 2020-0 2- No [facility] (CATAPRES) 8-16 03-28 College 0.1 MG 00:00: 00:00 of tablet 00 :00 Medicin e lisinopril 2020-0 Yes TAKE 1 [facility] (PRINIVIL, 7-25 TABLET BY Sandra ege ZESTRIL) 40 00:00: MOUTH of MG tablet 00 TWICE Medicin DAILY e lisinopril 2020-0 Yes TAKE 1 [facility] (PRINIVIL, 7-25 TABLET BY Sandra ege ZESTRIL) 40 00:00: MOUTH of MG tablet 00 TWICE Medicin DAILY e lisinopril 2020-0 Yes TAKE 1 [facility] (PRINIVIL, 7-25 TABLET BY Sandra ege ZESTRIL) 40 00:00: MOUTH of MG tablet 00 TWICE Medicin DAILY e lisinopril 2020-0 Yes TAKE 1 [facility] (PRINIVIL, 7-25 TABLET BY Sandra ege ZESTRIL) 40 00:00: MOUTH of MG tablet 00 TWICE Medicin DAILY e lisinopril 2020-0 Yes TAKE 1 [facility] (PRINIVIL, 7-25 TABLET BY Sandra ege ZESTRIL) 40 00:00: MOUTH of MG tablet 00 TWICE Medicin DAILY e lisinopril 0 Yes TAKE 1 [facility] (PRINIVIL, 7-25 TABLET BY Sandra ege StartSamplingSTRIL) 40 00:00: MOUTH of MG tablet 00 TWICE Medicin DAILY e lisinopril 0 Yes TAKE 1 [facility] (PRINIVIL, 7-25 TABLET BY [employer] StartSamplingSTRIL) 40 00:00: MOUTH of MG tablet 00 TWICE Medicin DAILY e lisinopril 0 Yes TAKE 1 [facility] (PRINIVIL, 7-25 TABLET BY Sandra Instantise StartSamplingSTRI) 40 00:00: MOUTH of MG tablet 00 TWICE Medicin DAILY e lisinopril Yes TAKE 1 [facility] (PRINIVIL, 7-25 TABLET BY Sandra Instantise StartSamplingSTRI) 40 00:00: MOUTH of MG tablet 00 TWICE Medicin DAILY e lisinopril 0 Yes TAKE 1 [facility] (PRINIVIL, 7-25 TABLET BY Sandra Instantise StartSamplingSTRI) 40 00:00: MOUTH of MG tablet 00 TWICE Medicin DAILY e lisinopril 0 Yes TAKE 1 [facility] (PRINIVIL, 7-25 TABLET BY [employer] StartSamplingSTRI) 40 00:00: MOUTH of MG tablet 00 TWICE Medicin DAILY e EUTHYROX 0 Yes TAKE 1 [facility] 100 MCG 7-23 TABLET BY College tablet 00:00: MOUTH ONCE of 00 DAILY Medicin e EUTHYROX 2020-0 Yes TAKE 1 [facility] 100 MCG 7-23 TABLET BY College tablet 00:00: MOUTH ONCE of 00 DAILY Medicin e EUTHYROX 2020-0 Yes TAKE 1 [facility] 100 MCG 7-23 TABLET BY College tablet 00:00: MOUTH ONCE of 00 DAILY Medicin e EUTHYROX 2020-0 Yes TAKE 1 [facility] 100 MCG 7-23 TABLET BY College tablet 00:00: MOUTH ONCE of 00 DAILY Medicin e EUTHYROX 2020-0 Yes TAKE 1 [facility] 100 MCG 7-23 TABLET BY College tablet 00:00: MOUTH ONCE of 00 DAILY Medicin e EUTHYROX 2020-0 Yes TAKE 1 [facility] 100 MCG 7-23 TABLET BY College tablet 00:00: MOUTH ONCE of 00 DAILY Medicin e EUTHYROX 2020-0 Yes TAKE 1 Jeff 100 MCG 7-23 TABLET BY College tablet 00:00: MOUTH ONCE of 00 DAILY Medicin e EUTHYROX Yes TAKE 1 [facility] 100 MCG 7-23 TABLET BY College tablet 00:00: MOUTH ONCE of 00 DAILY Medicin e EUTHYROX 2021- No TAKE 1 Jeff 100 MCG 7-23 -28 TABLET BY Colleg e tablet 00:00: 00:00 MOUTH ONCE of 00 :00 DAILY Medicin e metoprolol Yes TAKE 1 [...] of tablet 00 DAILY Medicin e atorvastati 0 Yes TAKE 1 [facility] (LIPITOR) [...] e atorvastati Yes 40mg Take 40 mg [facility] n (LIPITOR) 7-12 by mouth Sandra ege 40 MG 00:00: daily. of tablet 00 Medicin e atorvastati Yes 40mg Take 40 mg [facility] n (LIPITOR) 7-12 by mouth Sandra ege [...] of tablet 00 DAILY Medicin e atorvastati 0 Yes TAKE 1 [facility] n (LIPITOR) 7-12 TABLET BY Col lege 40 MG 00:00: MOUTH ONCE of tablet 00 DAILY Medicin e atorvastati Yes TAKE 1 [facility] n (LIPITOR) 7-12 TABLET BY Col lege 40 MG 00:00: MOUTH ONCE of tablet 00 DAILY Medicin e ferrous ferrous No ferrous [place] [facility] sulfate 325 sulfate 325 sulfate da mg (65 mg mg (65 mg 325 mg (65 [facility] iron) iron) mg iron) al tablet,carey tablet,carey tablet,del Health yed release yed release ayed O [facility] TAKE 1 TAKE 1 release h TABLET BY TABLET BY TAKE 1 Pro gram MOUTH ONCE MOUTH ONCE TABLET BY DAILY DAILY MOUTH ONCE DAILY fluconazole fluconazole No 1 Q1D fluconazol [place] 100 mg 100 mg e 100 mg da tablet Take tablet Take tablet [facility] 1 tablet 1 tablet Take 1 al every day every day tablet Hea lth by oral by oral every day Outr eac route. route. by oral h route. Program hydroxychlo hydroxychlo No hydroxychl [place] roquine roquine oroquine da [facility] lisinopril lisinopril No lisinopril [place] 40 mg 40 mg 40 mg da tablet TAKE tablet TAKE tablet [facility] 1 TABLET BY 1 TABLET BY TAKE 1 al MOUTH IN MOUTH IN TABLET BY He alth THE MORNING THE MORNING MOUTH IN Outreac AND 1 AND 1 THE h TABLET IN TABLET IN MORNING Pr ogram THE EVENING THE EVENING AND 1 TABLET IN THE EVENING metoprolol metoprolol No metoprolol [place] succinate succinate succinate da ER 200 mg ER 200 mg ER 200 mg [facility] tablet,exte tablet,exte tablet,ext al nded nded ended Health release 24 release 24 release 24 Outreac hr TAKE 1 hr TAKE 1 hr TAKE 1 h TABLET BY TABLET BY TABLET BY Program MOUTH IN MOUTH IN MOUTH IN THE MORNING THE MORNING THE MORNING ondansetron ondansetron No 2 BID ondansetro [place] 4 mg 4 mg n 4 mg da disintegrat disintegrat disintegra [facility] ing tablet ing tablet ting al Place 2 Place 2 tablet Health tablets tablets Place 2 Outrea c twice a day twice a day tablets h by by twice a Program translingua translingua day by l route. l route. translingu al route. ondansetron ondansetron No ondansetro [place] HCl 4 mg HCl 4 mg n HCl 4 mg d a tablet TAKE tablet TAKE tablet [facility] 1 TABLET BY 1 TABLET BY TAKE 1 al MOUTH EVERY MOUTH EVERY TABLET BY Health 8 HOURS 8 HOURS MOUTH Ou treac NEEDED FOR NEEDED FOR EVERY 8 h NAUSEA FOR NAUSEA FOR HOURS Program UP TO 21 UP TO 21 NEEDED FOR DAYS DAYS NAUSEA FOR UP TO 21 DAYS potassium potassium No potassium [place] chloride ER chloride ER chloride da 20 mEq 20 mEq ER 20 mEq [facility] p tablet,exte tablet,exte tablet,ext al nded nded ended Health release(par release(par release(pa Outreac t/cryst) t/cryst) rt/cryst) h Program Immunizations Ordered Immunization Filled Immunization Date Status Commen ts Source Name Name Influenza 2019-08-29 Completed [facility]alent 3YRS+ 00:00:00 of Med icine Influenza 2019-08-29 Completed [facility] 3YRS+ 00:00:00 of Med icine Influenza 2019-08-29 Completed [facility] 3YRS+ 00:00:00 of Med icine Influenza 2019-08-29 Completed [facility] 3YRS+ 00:00:00 of Med icine Influenza 2019-08-29 Completed [facility] 3YRS+ 00:00:00 of Med icine Influenza 2019-08-29 Completed [facility] 3YRS+ 00:00:00 of Med icine Influenza 2019-08-29 Completed [facility] 3YRS+ 00:00:00 of Med icine Influenza 2019-08-29 Completed [facility] 3YRS+ 00:00:00 of Med icine Influenza 2019-08-29 Completed [facility] 3YRS+ 00:00:00 of Med icine Influenza 2019-08-29 Completed [facility] 3YRS+ 00:00:00 of Med icine Influenza 2019-08-29 Completed [facility] 3YRS+ 00:00:00 of Med icine Vital Signs Vital Name Observation Time Observation Value Comments Source HEIGHT 2022-08-08 14:35:00 160 cm WEIGHT 2022-08-08 14:35:00 62.143 kg HEIGHT 2021-07-24 11:09:00 160 cm WEIGHT 2021-07-24 11:09:00 80.876 kg HEIGHT 2021-07-17 16:09:00 160 cm WEIGHT 2021-07-17 16:09:00 82.101 kg Systolic blood 2022-08-28 13:24:00 167 mm[Hg] [facility] pressure Medicine Diastolic blood 2022-08-28 13:24:00 78 mm[Hg] [facility] Medicine Heart rate 2022-08-28 13:24:00 52 /min [facility] ollege of [facility] Body temperature 2022-08-28 13:24:00 36.44 Angela [facility] Body height 2022-08-28 13:24:00 160 cm [facility] ollege of [facility] Body weight 2022-08-28 13:24:00 59.603 [facility] BMI 2022-08-28 13:24:00 23.28 kg/m2 [facility] HEIGHT 2022-08-08 14:35:00 160 cm WEIGHT 2022-08-08 14:35:00 62.143 kg HEIGHT 2022-08-08 14:35:00 160 cm WEIGHT 2022-08-08 14:35:00 62.143 kg WEIGHT 2022-07-28 07:49:00 62.143 kg WEIGHT 2022-07-28 07:49:00 62.143 kg WEIGHT 2022-07-28 07:49:00 62.143 kg Systolic blood 2022-07-17 19:44:00 110 mm[Hg] [facility] pressure Medicine Diastolic blood 2022-07-17 19:44:00 73 mm[Hg] [facility] Medicine Heart rate 2022-07-17 19:44:00 83 /min [facility] 2022-07-17 19:44:00 36.44 Angela [facility] Body height 2022-07-17 19:44:00 160 cm [facility] ollege of [facility] Body weight 2022-07-17 19:44:00 59.013 kg [facility] BMI 2022-07-17 19:44:00 23.05 [facility]2 [facility] BP Diastolic 2022-07-14 00:00:00 88 mm[Hg] [facility] Height 2022-07-14 00:00:00 63 [in_i] [facility] BMI (Body Mass 2022-07-14 00:00:00 23.6 kg/m2 [facility] coordinator Index) [facility] BP Systolic 2022-07-14 00:00:00 124 mm[Hg] [facility] Body Weight 2022-07-14 00:00:00 133.4 [lb_av] [facility] HEIGHT 2022-06-23 11:18:00 160 cm WEIGHT 2022-06-23 11:18:00 62.506 kg HEIGHT 2022-06-18 14:25:00 160 cm WEIGHT 2022-06-18 14:25:00 63.504 kg HEIGHT 2022-06-23 11:18:00 160 cm WEIGHT 2022-06-23 11:18:00 62.506 kg HEIGHT 2022-06-18 14:25:00 160 cm WEIGHT 2022-06-18 14:25:00 63.504 kg HEIGHT 2022-06-23 11:18:00 160 cm WEIGHT 2022-06-23 11:18:00 62.506 kg HEIGHT 2022-06-18 14:25:00 160 cm WEIGHT 2022-06-18 14:25:00 63.504 kg HEIGHT 2022-06-08 13:40:00 160 cm WEIGHT 2022-06-08 13:40:00 63.504 kg HEIGHT 2022-06-08 13:40:00 160 cm WEIGHT 2022-06-08 13:40:00 63.504 kg HEIGHT 2022-06-08 13:40:00 160 cm WEIGHT 2022-06-08 13:40:00 63.504 kg Systolic blood 2022-02-10 17:56:00 147 mm[Hg] [facility] pressure Medicine Diastolic blood 2022-02-10 17:56:00 85 mm[Hg] [facility] pressure Medicine Heart rate 2022-02-10 17:56:00 64 /min [facility] Body height 2022-02-10 17:56:00 160 cm [facility] Body weight 2022-02-10 17:56:00 77.111 kg [facility] ollege of Medicine BMI 2022-02-10 17:56:00 30.11 kg/m2 [facility] ollege of Medicine Systolic blood 2022-01-16 18:51:00 109 mm[Hg] [facility] pressure Medicine Diastolic blood 2022-01-16 18:51:00 69 mm[Hg] [facility] Medicine Heart rate 2022-01-16 18:51:00 74 /min [facility] ollege of Medicine Body height 2022-01-16 18:51:00 165.1 cm [facility] C ollege of Medicine Body weight 2022-01-16 18:51:00 78.926 kg [facility] ollege of Medicine BMI 2022-01-16 18:51:00 28.96 kg/m2 [facility] ollege of Medicine WEIGHT 2022-01-03 07:22:00 [...] kg Systolic blood 2021-12-19 16:16:00 137 mm[Hg] [facility] pressure Medicine Diastolic blood 2021-12-19 16:16:00 84 mm[Hg] [facility] Medicine Heart rate 2021-12-19 16:16:00 66 /min [facility] ollege of Medicine Body height 2021-12-19 16:16:00 160 cm [facility] ollege of Medicine Body weight 2021-12-19 16:16:00 83.462 kg [facility] ollege of Medicine BMI 2021-12-19 16:16:00 32.59 kg/m2 [facility] ollege of Medicine Systolic blood 2021-11-14 16:17:00 178 mm[Hg] [facility] pressure Medicine Diastolic blood 2021-11-14 16:17:00 99 mm[Hg] [facility] Medicine Heart rate 2021-11-14 16:17:00 57 /min [facility] ollege of Medicine Body height 2021-11-14 16:17:00 160 cm [facility] ollege of Medicine Body weight 2021-11-14 16:17:00 84.369 kg [facility] ollege of Medicine BMI 2021-11-14 16:17:00 32.95 kg/m2 [facility] ollege of Medicine BMI 2021-09-18 15:31:00 32.59 kg/m2 [facility] ollege of Medicine Body weight 2021-09-18 15:31:00 83.462 kg [facility] ollege of Medicine Body height 2021-08-15 13:12:00 160 cm [facility] ollege of Medicine Body weight 2021-08-15 13:12:00 82.509 kg [facility] ollege of Medicine BMI 2021-08-15 13:12:00 32.22 kg/m2 [facility] ollege of Medicine Systolic blood 2021-08-07 15:26:00 154 mm[Hg] [facility] Medicine Diastolic blood 2021-08-07 15:26:00 93 mm[Hg] [facility] Medicine Heart rate 2021-08-07 15:26:00 66 /min [facility] ollege of Medicine Body temperature 2021-08-07 15:26:00 36.44 Angela [facility] Body height 2021-08-07 15:26:00 160 cm [facility] ollege of Medicine Body weight 2021-08-07 15:26:00 81.194 kg [facility] ollege of Medicine BMI 2021-08-07 15:26:00 31.71 kg/m2 [facility] Body height 2022-08-08 14:35:00 160 cm [facility] Body weight 2022-08-08 14:35:00 62.143 kg [facility] BMI 2022-08-08 14:35:00 24.27 kg/m2 [facility] Systolic blood 2022-07-28 11:12:00 138 mm[Hg] [facility] Diastolic blood 2022-07-28 11:12:00 70 mm[Hg] [facility] Heart rate 2022-07-28 11:12:00 61 /min [facility] Respiratory rate 2022-07-28 11:12:00 18 /min [facility] Oxygen saturation in 2022-07-28 11:12:00 99 /min [facility] Arterial blood by Medical Ce nter Pulse oximetry Body temperature 2022-07-28 07:49:00 36.67 Angela [facility] BP Diastolic 2022-06-04 19:16:00 85 mm[Hg] [facility] BP Systolic 2022-06-04 19:16:00 165 mm[Hg] [facility] Heart Rate 2022-06-04 19:16:00 59 /[facility] Respiratory rate 2022-06-04 19:16:00 17 /min [facility] Body Temperature 2022-06-04 19:16:00 97.9 [degF[facility] Diastolic 2022-06-04 16:11:00 85 mm[Hg] [facility] BP Systolic 2022-06-04 16:11:00 165 mm[Hg] [facility] Heart Rate 2022-06-04 16:11:00 59 /min [facility] Respiratory rate 2022-06-04 16:11:00 17 /min [facility] Body Temperature 2022-06-04 16:11:00 97.9 [degF] [facility] BP Diastolic 2022-06-04 12:09:00 88 mm[Hg] [facility] BP Systolic 2022-06-04 12:09:00 167 mm[Hg] [facility] Heart Rate 2022-06-04 12:09:00 55 /min [facility] Respiratory rate 2022-06-04 12:09:00 18 /min [facility] Body Temperature 2022-06-04 12:09:00 97.9 [degF] [facility] BP Diastolic 2022-06-04 09:58:00 88 mm[Hg] [facility] BP Systolic 2022-06-04 09:58:00 167 mm[Hg] [facility] Heart Rate 2022-06-04 09:58:00 55 /min [facility] Respiratory rate 2022-06-04 09:58:00 18 /min [facility] Body Temperature 2022-06-04 09:58:00 97.9 [degF] [facility] Procedures Procedure Date / Time Performing Source Performed Clinician CBC W/AUTO DIFF WITH PLATELETS 2022-08-28 B [facility] 08:51:19 of Medicine COMPREHENSIVE METABOLIC PANEL 2022-08-28 [facility] 08:51:19 of Medicine FOLATE 2022-08-28 [facility] 08:51:19 of Medicine HEMOGLOBIN A1C 2022-08-28 [facility] 08:51:19 of Medicine IRON, TIBC AND FERRITIN PANEL 2022-08-28 [facility] 08:51:19 of Medicine LIPID PANEL 2022-08-28 [facility] 08:51:19 of Medicine PREALBUMIN 2022-08-28 [facility] 08:51:19 of Medicine VITAMIN A 2022-08-28 [facility] 08:51:19 of Medicine VITAMIN B1 2022-08-28 [facility] 08:51:19 of Medicine VITAMIN B12 2022-08-28 [facility] 08:51:19 of Medicine VITAMIN D 25 HYDROXY 2022-08-28 [facility] Sandra ege 08:51:19 of Medicine REPORT OF PROCEDURE - ENDOSCOPY 2022-08-[address] [facility] URL 13:16:43 Medical Center [place] FLUORO NON-SPECIFIC UP TO 1 2022-08-[address] [facility] HOUR 12:51:[address] ABDOMEN/PELVIS WITH IV CONTRAST 2022-08-05 Daljit Barnett ra, [facility] 15:36:00 Medical Center B-TYPE NATRIURETIC FACTOR (BNP) 2022-07-28 Makenzie[facility] 08:20:00 [facility] CBC W/PLT COUNT & AUTO 2022-07-28 Ali, [facility]ir [facility] DIFFER[facility] 08:20:00 [facility] BASIC METABOLIC PANEL 2022-07-28 Ali, [facility] 08:20:00 [facility] HIGH SENSITIVITY TROPONIN I 2022-07-28 Ali, Amir [facility] 08:20:00 [facility] CBC W/PLT COUNT & AUTO 2022-07-28 Ali, [facility]ir [facility] DIFFERENTIAL 08:20:00 [facility] XR CHEST 1 VIEW PORTABLE / BEDSIDE 2022-07-28 Ali, Amir [facility] 08:04:00 [facility] ED ECG INTERPRETATION 2022-07-28 Ali, Lilyr [facility] 07:55:00 [facility] ECG 12-LEAD 2022-07-28 Ali, Amir [facility] 07:53:25 [facility] ECG 12-LEAD 2022-07-28 Unknown, Hl7 [facility] 07:53:25 [facility] ECG 12-LEAD 2022-07-28 Unknown, Hl7 [facility] 07:53:25 [facility] ECG 12-LEAD 2022-07-28 Unknown, Hl7 [facility] 07:43:33 [facility] ECG 12-LEAD 2022-07-28 Unknown, Hl7 [facility] 07:42:53 [facility] [place] FLUORO NON-SPECIFIC UP TO 1 2022-06-23 Anish Barn[address] [facility] HOUR 13:24:00 [facility] REPORT OF PROCEDURE - ENDOSCOPY 2022-06-[address] [facility] URL 12:57:06 [facility] ESOPHAGOGASTRODUODENOSCOPY 2022-06-23 [facility]ish [facility] 11:55:00 [facility] ESOPHAGOSCOPY, WITH STENT 2022-06-[address] [facility] INSERTION 11:55:00 [facility] PROCEDURE W/ C-ARM 2022-06-23 Ericka, Anish [facility] 11:55:00 [facility] REPORT OF PROCEDURE - ENDOSCOPY 2022-06-[address] [facility] URL 10:25:40 [facility] [place] FLUORO NON-SPECIFIC UP TO 1 2022-06-[address] [facility] HOUR 09:50:00 [facility] ESOPHAGOSCOPY, WITH STENT 2022-06-[address] [facility] INSERTION 09:04:00 [facility] PROCEDURE W/ C-ARM 2022-06-[address] [facility] 09:04:00 [facility] BASIC METABOLIC PANEL 2022-06-10 Mattar, Samer [facility] 03:33:00 [facility] MAGNESIUM 2022-06-10 Mattar, Samer [facility] 03:33:00 [facility] PHOSPHORUS 2022-06-10 Mattar, Samer [facility] 03:33:00 [facility] CBC W/PLT COUNT & AUTO 2022-06-10 Mattar, [facility] DIFFERENTIAL 03:33:00 [facility] CBC W/PLT COUNT & AUTO 2022-06-10 Mattar, [facility]er [facility] DIFFERENTIAL 03:33:00 [facility] ESOPHAGOGASTRODUODENOSCOPY 2022-06-[address] [facility] 13:00:00 [facility] REPORT OF PROCEDURE - ENDOSCOPY 2022-06-[address] [facility] URL 12:51:24 [facility] BASIC METABOLIC PANEL 2022-06-09 Mattar, [facility]er [facility] 04:22:00 [facility] MAGNESIUM 2022-06-09 Mattar, Samer [facility] 04:22:00 [facility] PHOSPHORUS 2022-06-09 Mattar, Samer [facility] 04:22:00 [facility] CBC W/PLT COUNT & AUTO 2022-06-09 Mattar, [facility] DIFFERENTIAL 04:22:00 [facility] PT/APTT 2022-06-[address] [facility] 04:22:00 [facility] CBC W/PLT COUNT & AUTO 2022-06-09 Mattar, [facility]er [facility] DIFFERENTIAL 04:22:00 [facility] URINALYSIS W/ REFLEX URINE CULTURE 2022-06-09 [facility] 00:59:00 [facility] SARS-COV2/RT-PCR ([facility]) 2022-06-08 Brusasaii, Ni ka [facility] 17:09:[address] [facility] [address] ABDOMEN/PELVIS WITHOUT IV 2022-06-08 Brusatori, Rosalie [facility] CONTRAST 16:33:00 [facility] LACTIC ACID, VENOUS 2022-06-08 Brusatori, Rosalie [facility] 15:30:00 [facility] ECG 12-LEAD 2022-06-08 Unknown, Hl7 [facility] 14:34:55 [facility] ECG 12-LEAD 2022-06-08 Unknown, Hl7 [facility] 14:34:55 [facility] ECG 12-LEAD 2022-06-08 Unknown, Hl7 [facility] 14:34:55 [facility] ECG 12-LEAD 2022-06-08 Unknown, Hl7 [facility] 14:32:06 [facility] ECG 12-LEAD 2022-06-08 Unknown, Hl7 [facility] 14:32:06 [facility] ECG 12-LEAD 2022-06-08 Unknown, Hl7 [facility] 14:32:06 [facility] CBC W/PLT COUNT & AUTO 2022-06-08 Bruevgeny, Rosalie [facility] DIFFERENTIAL 14:30:00 [facility] COMPREHENSIVE METABOLIC PANEL 2022-06-08 Dulce [address] [facility] 14:30:00 [facility] LIPASE 2022-06-08 Brusatori, Rosalie [facility] 14:30:00 [facility] PT/APTT 2022-06-08 Brusatorjelly, Rosalie [facility] 14:30:00 [facility] CBC W/PLT COUNT & AUTO 2022-06-08 Brusadave, Rosalie [facility] DIFFERENTIAL 14:30:00 [facility] XR CHEST 1 VIEW PORTABLE / BEDSIDE 2022-06-08 Dulce, Ni ka [facility] 13:58:00 [facility] EKG-SCANNED 2022-06-08 Provider, Default [facility] 00:00:00 [facility] Computed tomography of abdomen and 2022-06-04 [facility] pelvis without contrast 00:00:00 POCT-GLUCOSE METER 2022-01-03 Mattar, Samer [facility] 06:28:00 [facility] POCT-GLUCOSE METER 2022-01-02 Mattar, Samer [facility] 22:39:00 [facility] POCT-GLUCOSE METER 2022-01-02 Mattar, Samer [facility] 17:10:00 [facility] POCT-GLUCOSE METER 2022-01-02 Mattar, Samer [facility] 10:08:00 [facility] POCT-GLUCOSE METER 2022-01-02 Mattar, Samer [facility] 05:56:00 [facility] POCT-GLUCOSE METER 2022-01-01 Mattar, Samer [facility] 23:24:00 [facility] POCT-GLUCOSE METER 2022-01-01 Mattar, Samer [facility] 17:51:00 [facility] POCT-GLUCOSE METER 2022-01-01 Mattar, Samer [facility] 16:36:00 [facility] TISSUE EXAM 2022-01-01 Mattar, Samer [facility] 11:43:00 [facility] REVISION, GASTRIC RESTRICTIVE 2022-01-01 Mattar, [facility]er [facility] PROCEDURE 09:41:00 [facility] LAPAROSCOPY, WITH GASTRIC BYPASS 2022-01-01 Mattar, Samer [facility] 09:41:00 [facility] ESOPHAGOGASTRODUODENOSCOPY 2022-01-01 Mattar, [facility] (ESOPHAGOGASTRODUODENOSCOPY) 09:41:00 [facility] POCT-GLUCOSE METER 2022-01-01 Mattar, Samer [facility] 08:56:00 [facility] ECG 12-LEAD 2021-12-27 Gentle, Kirit [facility] 11:35:17 [facility] ECG 12-LEAD 2021-12-27 Unknown, Hl7 [facility] 11:35:17 [facility] ECG 12-LEAD 2021-12-27 Unknown, Hl7 [facility] 11:35:17 [facility] SARS-COV2/RT-PCR ([facility]) 2021-12-[address] [facility] 11:27:00 [facility] HEMOGLOBIN 2021-12-[address] [facility] 11:27:00 [facility] ELECTROLYTES 2021-12-[address] [facility] 11:27:00 [facility] BUN AND CREATININE W/RATIO 2021-12-27 [facility] 11:27:00 [facility] Fluoroscopy Guided Endoscopic [facility] Insertion of Duodenal Stent [facility] Gastric Bypass [facility] Plan of Care Planned Activity Planned Date Details Comments Source Future Scheduled 2024-05-[address] [facility] 00:[facility] [code = 340463129] Future Scheduled 2024-05-[address] [facility] [facility] Test 00:00:00 malignant neoplasm of Medica l Center breast (procedure) [code = 274391039] Future Scheduled 2022-08-28 Screening for [facility]ge Test 08:55:56 malignant neoplasm of of Med icine colon (procedure) [code = 768789266] Future Scheduled 2022-08-28 Screening for [facility] Test 08:55:56 malignant neoplasm of of Med icine breast (procedure) [code = 153497997] Future Scheduled 2022-08-28 COVID-19 Vaccine (#1) [employer] Test 08:55:56 [code = COVID-19 of Medicine Vaccine (#1)] Future Scheduled 2022-08-28 TETANUS SHOT (ADULT) [employer] Test 08:55:56 [code = TETANUS SHOT of Medi cine (ADULT)] Future Scheduled 2022-08-28 Hepatitis C screening [employer] Test 08:55:56 (procedure) [code = of Medic ine 041082405] Future Scheduled 2022-08-28 ZOSTER VACCINE (1 of [employer] Test 08:55:56 2) [code = ZOSTER of Medicin e VACCINE (1 of 2)] Future Scheduled 2022-08-28 Screening for [facility] [employer] Test 08:55:56 osteoporosis of Medicine (procedure) [code = 056811335] Future Scheduled 2022-08-28 Pneumococcal 65+ (1 - [employer] Test 08:55:56 PCV) [code = of Medicine Pneumococcal 65+ (1 - PCV)] Future Scheduled 2022-08-28 MEDICARE AWV (Initial) [employer] Test 08:55:56 [code = MEDICARE AWV of Medi cine (Initial)] Future Scheduled 2022-08-28 FALL SCREEN [code = [employer] [facility] 08:55:56 FALL SCREEN] of Medicine Future Scheduled 2022-08-28 CBC W/AUTO DIFF WITH Ordered: [employer] Test 08:51:19 PLATELETS [code = 08/28/2022 of Medicin e 68916-4] Future Scheduled 2022-08-28 COMPREHENSIVE Ordered: [facility] Test 08:51:19 METABOLIC PANEL [code 08/28/2022 of Med icine = 60616-3] Future Scheduled 2022-08-28 FOLATE [code = 2284-8] Ordered: [employer] [facility] 08:51:19 08/28/2022 of Medicine Future Scheduled 2022-08-28 HEMOGLOBIN A1C [code = Ordered: [employer] [facility] 08:51:19 4548-4] 08/28/2022 of Medicine Future Scheduled 2022-08-28 IRON, TIBC AND Ordered: [facility] [employer] Test 08:51:19 FERRITIN PANEL [code = 08/28/2022 of Me dicmanisha NOCPT] Future Scheduled 2022-08-28 LIPID PANEL [code = Ordered: [employer] [facility] 08:51:19 18871-9] 08/28/2022 of Medicine Future Scheduled 2022-08-28 PREALBUMIN [code = Ordered: [employer] [facility] 08:51:19 42277-0] 08/28/2022 of Medicine Future Scheduled 2022-08-28 VITAMIN A [code = Ordered: [employer] Test 08:51:19 2923-1] 08/28/2022 of Medicine Future Scheduled 2022-08-28 VITAMIN B1 [code = Ordered: [employer] Test 08:51:19 02247-5] 08/28/2022 of Medicine Future Scheduled 2022-08-28 VITAMIN B12 [code = Ordered: [employer] [facility] 08:51:19 2132-9] 08/28/2022 of Medicine Future Scheduled 2022-08-28 VITAMIN D 25 HYDROXY Ordered: [employer] Test 08:51:19 [code = 1989-3] 08/28/2022 of Medicine Future Scheduled 2022-07-17 Screening for [facility] Test 15:58:27 malignant neoplasm of of Med icine colon (procedure) [code = 140706209] Future Scheduled 2022-07-17 Screening for [facility] [employer] Test 15:58:27 malignant neoplasm of of Med icine breast (procedure) [code = 040590427] Future Scheduled 2022-07-17 COVID-19 Vaccine (#1) [employer] [facility] 15:58:27 [code = COVID-19 of Medicine Vaccine (#1)] Future Scheduled 2022-07-17 TETANUS SHOT (ADULT) [employer] Test 15:58:27 [code = TETANUS SHOT of Medi cine (ADULT)] Future Scheduled 2022-07-17 Hepatitis C screening [employer] [facility] 15:58:27 (procedure) [code = of Medic ine 137777976] Future Scheduled 2022-07-17 ZOSTER VACCINE (1 of [employer] Test 15:58:27 2) [code = ZOSTER of Medicin e VACCINE (1 of 2)] Future Scheduled 2022-07-17 MEDICARE AWV (Initial) [employer] [facility] 15:58:27 [code = MEDICARE AWV of Medi cine (Initial)] Future Scheduled 2022-07-17 Screening for [facility] [employer] Test 15:58:27 osteoporosis of Medicine (procedure) [code = 479900791] Future Scheduled 2022-07-17 Pneumococcal 65+ (1 - [employer] [facility] 15:58:27 PCV) [code = of Medicine Pneumococcal 65+ (1 - PCV)] Future Scheduled 2022-07-17 FALL SCREEN [code = [employer] [facility] 15:58:27 FALL SCREEN] of Medicine Future Scheduled 2022-07-17 INFLUENZA VACCINE (#1) [facility] 00:00:00 [code = INFLUENZA Medical Ce nter VACCINE (#1)] Future Scheduled 2022-07-17 INFLUENZA VACCINE (#1) [facility] 00:00:00 [code = INFLUENZA Medical Ce nter VACCINE (#1)] Diagnostic Test 2022-07-14 adenovirus C(40) + [place] communication center coordinator Pending 00:00:00 B(41) Ag, qual [facility] immunoassay, stool Outreach Program [code = adenovirus C(40) + B(41) Ag, qual immunoassay, stool] Diagnostic Test 2022-07-14 C diff toxin A+B, qual [place] Pending 00:00:00 IA, stool [code = C [facility] diff toxin A+B, qual Outreac h Program IA, stool] Diagnostic Test 2022-07-14 calprotectin, stool [place] Pending 00:00:00 [code = calprotectin, [facility] stool] Outreach [facility] Diagnostic Test 2022-07-14 cryptosporidium sp Ag, [place] Pending 00:00:00 immunoassay, stool [facility] [code = Outreach [facility] cryptosporidium sp Ag, immunoassay, stool] Diagnostic Test 2022-07-14 cyclospora smear, [place] Pending 00:00:00 stool [code = [facility] cyclospora smear, Outreach P rogram stool] Diagnostic Test 2022-07-14 shiga toxins (1+2), [place] Pending 00:00:00 qualitative, [facility] immunoassay, stool Outreach Program [code = shiga toxins (1+2), qualitative, immunoassay, stool] Diagnostic Test 2022-07-14 pancreatic elastase, [place] mallory Pending 00:00:00 quant, stool [code = [facility] pancreatic elastase, Outreac h Program quant, stool] Diagnostic Test 2022-07-14 giardia lamblia Ag, [place] Pending 00:00:00 EIA, stool [code = [facility] giardia lamblia Ag, Outreach Program EIA, stool] Diagnostic Test 2022-07-14 unlisted lab [code = [place] Pending 00:00:00 unlisted lab] [facility] Outreach Progra m Diagnostic Test 2022-07-14 O&P (ova & parasites), [place] Pending 00:00:00 stool [code = O&P (ova [facility] opal Health & parasites), stool] Outreac h Program Diagnostic Test 2022-07-14 rotavirus Ag, qual, [place] Pending 00:00:00 immunoassay, stool [facility] [code = rotavirus Ag, Outrea ch Program qual, immunoassay, stool] Diagnostic Test 2022-07-14 culture, stool [code = [place] Pending 00:00:00 culture, stool] [facility] Diagnostic Test 2022-07-14 anca panel, serum [place] Pending 00:00:00 [code = anca panel, [facility] serum] Outreach Progra m Diagnostic Test 2022-07-14 Howell's yeast Ab, [place] Pending 00:00:00 quantitative, serum [facility] [code = Howell's yeast Outrea ch Program Ab, quantitative, serum] Diagnostic Test 2022-07-14 C reactive protein, [place] Pending 00:00:00 QN, serum or plasma [facility] [code = C reactive Outreach Program protein, QN, serum or plasma] Diagnostic Test 2022-07-14 ESR (erythrocyte [place] Pending 00:00:00 sedimentation rate), [facility] blood [code = ESR Outreach P rogram (erythrocyte sedimentation rate), blood] Diagnostic Test 2022-07-14 celiac disease [place] Pending 00:00:00 comprehensive panel, [facility] serum [code = celiac Outreac h Program disease comprehensive panel, serum] Diagnostic Test 2022-07-14 TSH + free T4, serum [place] Pending 00:00:00 [code = TSH + free T4, [facility] serum] Outreach Progra m Future Scheduled 2022-03-[address] [facility] 00:00:00 WELLNESS (YEAR 2 or Medical Center FIRST YEAR if no IPPE) [code = MEDICARE ANNUAL WELLNESS (YEAR 2 or FIRST YEAR if no IPPE)] Future Scheduled 2022-03-[address] [facility] Test 00:00:00 WELLNESS (YEAR 2 or Medical Center FIRST YEAR if no IPPE) [code = MEDICARE ANNUAL WELLNESS (YEAR 2 or FIRST YEAR if no IPPE)] Future Scheduled 2022-02-10 Screening for [facility] Test 13:14:22 malignant neoplasm of of Med icine colon (procedure) [code = 383284648] Future Scheduled 2022-02-10 Screening for [facility] [employer] Test 13:14:22 malignant neoplasm of of Med icine breast (procedure) [code = 538373257] Future Scheduled 2022-02-10 COVID-19 Vaccine (1) [employer] Test 13:14:22 [code = COVID-19 of Medicine Vaccine (1)] Future Scheduled 2022-02-10 TETANUS SHOT (ADULT) [employer] Test 13:14:22 [code = TETANUS SHOT of Medi cine (ADULT)] Future Scheduled 2022-02-10 Hepatitis C screening [employer] Test 13:14:22 (procedure) [code = of Medic ine 397975341] Future Scheduled 2022-02-10 ZOSTER VACCINE (1 of [employer] Test 13:14:22 2) [code = ZOSTER of Medicin e VACCINE (1 of 2)] Future Scheduled 2022-02-10 MEDICARE AWV (Initial) [employer] Test 13:14:22 [code = MEDICARE AWV of Medi Bambuser (Initial)] Future Scheduled 2022-02-10 Screening for [facility] [employer] Test 13:14:22 osteoporosis of Medicine (procedure) [code = 461382708] Future Scheduled 2022-02-10 Pneumococcal 65+ (1 of [employer] Test 13:14:22 1 - PPSV23) [code = of Medic ine Pneumococcal 65+ (1 of 1 - PPSV23)] [...] icine PLAN] Future Scheduled 2022-01-16 Screening for [facility] [employer] Test 12:51:58 malignant neoplasm of of Med icine colon (procedure) [code = 192757882] Future Scheduled 2022-01-16 Screening for [facility] [employer] Test 12:51:58 malignant neoplasm of of Med icine breast (procedure) [code = 867839955] Future Scheduled 2022-01-16 COVID-19 Vaccine (1) [employer] Test 12:51:58 [code = COVID-19 of Medicine Vaccine (1)] Future Scheduled 2022-01-16 TETANUS SHOT (ADULT) [employer] Test 12:51:58 [code = TETANUS SHOT of Medi cine (ADULT)] Future Scheduled 2022-01-16 Hepatitis C screening [employer] Test 12:51:58 (procedure) [code = of Medic ine 832504670] Future Scheduled 2022-01-16 ZOSTER VACCINE (1 of [employer] Test 12:51:58 2) [code = ZOSTER of Medicin e VACCINE (1 of 2)] Future Scheduled 2022-01-16 MEDICARE AWV (Initial) [employer] Test 12:51:58 [code = MEDICARE AWV of Medi cine (Initial)] Future Scheduled 2022-01-16 Screening for [facility] Test 12:51:58 osteoporosis of Medicine (procedure) [code = 357005600] Future Scheduled 2022-01-16 Pneumococcal 65+ (1 of [employer] [facility] 12:51:58 1 - PPSV23) [code = of Medic ine Pneumococcal 65+ (1 of 1 - PPSV23)] Future Scheduled 2022-01-16 FALL SCREEN [code = [employer] 12:51:58 FALL SCREEN] of Medicine Future Scheduled 2021-12-19 BMI FOLLOW UP PLAN [employer] Test 10:19:58 [code = BMI FOLLOW UP of Med icine PLAN] Future Scheduled 2021-12-19 Screening for [facility] Test 10:18:24 malignant neoplasm of of Med icine colon (procedure) [code = 029312180] Future Scheduled 2021-12-19 Screening for [facility] [employer] Test 10:18:24 malignant neoplasm of of Med icine breast (procedure) [code = 990697301] Future Scheduled 2021-12-19 COVID-19 Vaccine (1) [employer] Test 10:18:24 [code = COVID-19 of Medicine Vaccine (1)] Future Scheduled 2021-12-19 TETANUS SHOT (ADULT) [employer] Test 10:18:24 [code = TETANUS SHOT of Medi cine (ADULT)] Future Scheduled 2021-12-19 Hepatitis C screening [employer] Test 10:18:24 (procedure) [code = of Medic ine 478266680] Future Scheduled 2021-12-19 ZOSTER VACCINE (1 of [employer] Test 10:18:24 2) [code = ZOSTER of Medicin e VACCINE (1 of 2)] Future Scheduled 2021-12-19 MEDICARE AWV (Initial) [employer] Test 10:18:24 [code = MEDICARE AWV of Medi cine (Initial)] Future Scheduled 2021-12-19 Screening for [facility] [employer] Test 10:18:24 osteoporosis of Medicine (procedure) [code = 179498673] Future Scheduled 2021-12-19 Pneumococcal 65+ (1 of [employer] [facility] 10:18:24 1 - PPSV23) [code = of Medic ine Pneumococcal 65+ (1 of 1 - PPSV23)] Future Scheduled 2021-12-19 FALL SCREEN [code = [employer] [facility] 10:18:24 FALL SCREEN] of Medicine Future Scheduled 2021-11-[address] [facility] Test 00:00:00 (12+) [code = Medical Center DEPRESSION SCREENING (12+)] Future Scheduled 2021-11-16 [address]K SCREENING [facility] Test 00:00:00 [code = FALLS RISK Medical C enter SCREENING] Future Scheduled 2021-11-[address] [facility] Test 00:00:00 (12+) [code = Medical Center DEPRESSION SCREENING (12+)] Future Scheduled 2021-11-16 FALLS RISK SCREENING [facility] Test 00:00:00 [code = FALLS RISK Medical C enter SCREENING] Future Scheduled 2021-11-14 VITAMIN D 1,25 Ordered: [facility] [employer] Test 10:49:51 DIHYDROXY [code = 11/14/2021 of Medicin e 1649-3] Future Scheduled 2021-11-14 FOLATE [code = 2284-8] Ordered: [employer] [facility] 10:49:51 11/14/2021 of Medicine Future Scheduled 2021-11-14 HEMOGLOBIN A1C [code = Ordered: [employer] [facility] 10:49:51 4548-4] 11/14/2021 of Medicine Future Scheduled 2021-11-14 PROTIME-INR [code = Ordered: [employer] [facility] 10:49:51 5902-2] 11/14/2021 of Medicine Future Scheduled 2021-11-14 URINALYSIS AUTO Ordered: [facility] Test 10:49:51 W/SCOPE [code = 11/14/2021 of Medicine 96183-2] Future Scheduled 2021-11-14 CBC W/O DIFF W PLT Ordered: [employer] Test 10:49:50 [code = 6690-2] 11/14/2021 of Medicine Future Scheduled 2021-11-14 COMPREHENSIVE Ordered: [facility] [employer] Test 10:49:50 METABOLIC PANEL [code 11/14/2021 of Med icine = 72268-8] Future Scheduled 2021-11-14 IRON, TIBC AND Ordered: [facility] [employer] Test 10:49:50 FERRITIN PANEL [code = 11/14/2021 of Tx dicine NOCPT] Future Scheduled 2021-11-14 CALCIUM [code = Ordered: [facility] [employer] Test 10:49:50 39271-2] 11/14/2021 of Medicine Future Scheduled 2021-11-14 ALBUMIN [code = Ordered: [facility] [employer] Test 10:49:50 1751-7] 11/14/2021 of Medicine Future Scheduled 2021-11-14 LIPID PANEL [code = Ordered: [employer] 10:49:50 47731-3] 11/14/2021 of Medicine Future Scheduled 2021-11-14 VITAMIN B1 [code = Ordered: [employer] [facility] 10:49:50 11544-1] 11/14/2021 of Medicine Future Scheduled 2021-11-14 VITAMIN B6 [code = Ordered: [employer] [facility] 10:49:50 30133-1] 11/14/2021 of Medicine Future Scheduled 2021-11-14 VITAMIN B12 [code = Ordered: [employer] [facility] 10:49:50 2132-9] 11/14/2021 of Medicine Future Scheduled 2021-11-14 VITAMIN A [code = Ordered: [facility] Test 10:49:50 2923-1] 11/14/2021 of Medicine Future Scheduled 2021-11-14 BMI FOLLOW UP PLAN [employer] Test 10:19:20 [code = BMI FOLLOW UP of Med icine PLAN] Future Scheduled 2021-11-14 Screening for [facility] [employer] [facility] 10:18:44 malignant neoplasm of of Med icine colon (procedure) [code = 606280737] Future Scheduled 2021-11-14 Screening for [facility] [employer] Test 10:18:44 malignant neoplasm of of Med icine breast (procedure) [code = 541029938] Future Scheduled 2021-11-14 COVID-19 Vaccine (1) [employer] [facility] 10:18:44 [code = COVID-19 of Medicine Vaccine (1)] Future Scheduled 2021-11-14 TETANUS SHOT (ADULT) [employer] Test 10:18:44 [code = TETANUS SHOT of Medi cine (ADULT)] Future Scheduled 2021-11-14 Hepatitis C screening [employer] [facility] 10:18:44 (procedure) [code = of Medic ine 906348603] Future Scheduled 2021-11-14 ZOSTER VACCINE (1 of [employer] Test 10:18:44 2) [code = ZOSTER of Medicin e VACCINE (1 of 2)] Future Scheduled 2021-11-14 MEDICARE AWV (Initial) [employer] [facility] 10:18:44 [code = MEDICARE AWV of Medi cine (Initial)] Future Scheduled 2021-11-14 Screening for [facility] Test 10:18:44 osteoporosis of Medicine (procedure) [code = 403315437] Future Scheduled 2021-11-14 Pneumococcal 65+ (1 of [employer] [facility] 10:18:44 1 - PPSV23) [code = of Medic ine Pneumococcal 65+ (1 of 1 - PPSV23)] Future Scheduled 2021-11-14 FALL SCREEN [code = [employer] [facility] 10:18:44 FALL SCREEN] of Medicine Future Scheduled 2021-10-18 Screening for [facility] [employer] Test 16:55:41 malignant neoplasm of of Med icine colon (procedure) [code = 405184283] Future Scheduled 2021-10-18 Screening for [facility] Test 16:55:41 malignant neoplasm of of Med icine breast (procedure) [code = 899251523] Future Scheduled 2021-10-18 COVID-19 Vaccine (1) [employer] Test 16:55:41 [code = COVID-19 of Medicine Vaccine (1)] Future Scheduled 2021-10-18 TETANUS SHOT (ADULT) [employer] Test 16:55:41 [code = TETANUS SHOT of Medi cine (ADULT)] Future Scheduled 2021-10-18 Hepatitis C screening [employer] [facility] 16:55:41 (procedure) [code = of Medic ine 055739473] Future Scheduled 2021-10-18 ZOSTER VACCINE (1 of [employer] Test 16:55:41 2) [code = ZOSTER of Medicin e VACCINE (1 of 2)] Future Scheduled 2021-10-18 MEDICARE AWV (Initial) [employer] [facility] 16:55:41 [code = MEDICARE AWV of Medi cine (Initial)] Future Scheduled 2021-10-18 Screening for [facility] Test 16:55:41 osteoporosis of Medicine (procedure) [code = 892835417] Future Scheduled 2021-10-18 Pneumococcal 65+ (1 of [employer] [facility] 16:55:41 1 - PPSV23) [code = of Medic ine Pneumococcal 65+ (1 of 1 - PPSV23)] Future Scheduled 2021-10-18 BMI FOLLOW UP PLAN [employer] Test 16:55:41 [code = BMI FOLLOW UP of Med icine PLAN] Future Scheduled 2021-10-18 FALL SCREEN [code = [employer] [facility] 16:55:41 FALL SCREEN] of Medicine Future Scheduled 2021-09-18 Screening for [facility] [employer] Test 10:13:27 malignant neoplasm of of Med icine colon (procedure) [code = 221018175] Future Scheduled 2021-09-18 Screening for [facility] [employer] Test 10:13:27 malignant neoplasm of of Med icine breast (procedure) [code = 634604721] Future Scheduled 2021-09-18 COVID-19 Vaccine (1) [employer] Test 10:13:27 [code = COVID-19 of Medicine Vaccine (1)] Future Scheduled 2021-09-18 TETANUS SHOT (ADULT) [employer] Test 10:13:27 [code = TETANUS SHOT of Medi cine (ADULT)] Future Scheduled 2021-09-18 Hepatitis C screening [employer] Test 10:13:27 (procedure) [code = of Medic ine 809955664] Future Scheduled 2021-09-18 ZOSTER VACCINE (1 of [employer] Test 10:13:27 2) [code = ZOSTER of Medicin e VACCINE (1 of 2)] Future Scheduled 2021-09-18 MEDICARE AWV (Initial) [employer] [facility] 10:13:27 [code = MEDICARE AWV of Medi cine (Initial)] Future Scheduled 2021-09-18 Screening for [facility] Test 10:13:27 osteoporosis of Medicine (procedure) [code = 028502188] Future Scheduled 2021-09-18 PNEUMOVAX >=65 [employer] [facility] 10:13:27 (PPSV23) [code = [...] of Med icine colon (procedure) [code = 548240878] Future Scheduled 2021-08-20 Screening for [facility] [employer] Test 13:40:17 malignant neoplasm of of Med icine breast (procedure) [code = 699166030] Future Scheduled 2021-08-20 COVID-19 Vaccine (1) [employer] Test 13:40:17 [code = COVID-19 of Medicine Vaccine (1)] Future Scheduled 2021-08-20 TETANUS SHOT (ADULT) [employer] Test 13:40:17 [code = TETANUS SHOT of Medi cine (ADULT)] Future Scheduled 2021-08-20 Hepatitis C screening [employer] Test 13:40:17 (procedure) [code = of Medic ine 490417079] Future Scheduled 2021-08-20 ZOSTER VACCINE (1 of [employer] Test 13:40:17 2) [code = ZOSTER of Medicin e VACCINE (1 of 2)] Future Scheduled 2021-08-20 MEDICARE AWV (Initial) [employer] [facility] 13:40:17 [code = MEDICARE AWV of Medi cine (Initial)] Future Scheduled 2021-08-20 Screening for [facility] [employer] [facility] 13:40:17 osteoporosis of Medicine (procedure) [code = 971548000] Future Scheduled 2021-08-20 PNEUMOVAX >=[address] [employer] [...] of Med icine colon (procedure) [code = 144745811] Future Scheduled 2021-08-07 Screening for [facility] [employer] Test 10:28:39 malignant neoplasm of of Med icine breast (procedure) [code = 409286155] Future Scheduled 2021-08-07 COVID-19 Vaccine (1) [employer] Test 10:28:39 [code = COVID-19 of Medicine Vaccine (1)] Future Scheduled 2021-08-07 TETANUS SHOT (ADULT) [employer] Test 10:28:39 [code = TETANUS SHOT of Medi cine (ADULT)] Future Scheduled 2021-08-07 Hepatitis C screening [employer] [facility] 10:28:39 (procedure) [code = of Medic ine 466712207] Future Scheduled 2021-08-07 ZOSTER VACCINE (1 of [employer] Test 10:28:39 2) [code = ZOSTER of Medicin e VACCINE (1 of 2)] Future Scheduled 2021-08-07 MEDICARE AWV (Initial) [employer] Test 10:28:39 [code = MEDICARE AWV of Medi cine (Initial)] Future Scheduled 2021-08-07 Screening for [facility] Test 10:28:39 osteoporosis of Medicine (procedure) [code = 695294693] Future Scheduled 2021-08-07 PNEUMOVAX >=65 [facility] [employer] Test 10:28:39 (PPSV23) [code = of Medicine PNEUMOVAX >=65 (PPSV23)] Future Scheduled 2021-08-07 BMI FOLLOW UP PLAN [employer] Test 10:28:39 [code = BMI FOLLOW UP of Med icine PLAN] Future Scheduled 2021-08-07 FALL SCREEN [code = [employer] [facility] 10:28:39 FALL SCREEN] of Medicine Future Scheduled 2021-08-07 Screening for [facility] [employer] Test 10:28:39 malignant neoplasm of of Med icine colon (procedure) [code = 521438414] Future Scheduled 2021-08-07 Screening for [facility] Test 10:28:39 malignant neoplasm of of Med icine breast (procedure) [code = 569382586] Future Scheduled 2021-08-07 COVID-19 Vaccine (1) [facility] Test 10:28:39 [code = COVID-19 of Medicine Vaccine (1)] Future Scheduled 2021-08-07 TETANUS SHOT (ADULT) [employer] [facility] [employer] Test 10:28:39 [code = TETANUS SHOT of Medi cine (ADULT)] Future Scheduled 2021-08-07 Hepatitis C screening [employer] Test 10:28:39 (procedure) [code = of Medic ine 368418816] Future Scheduled 2021-08-07 ZOSTER VACCINE (1 of [facility] Test 10:28:39 2) [code = ZOSTER of Medicin e VACCINE (1 of 2)] Future Scheduled 2021-08-07 [facility] 10:28:39 [code = MEDICARE AWV of Medi cine (Initial)] Future Scheduled 2021-08-07 Screening for [facility] [employer] Test 10:28:39 osteoporosis of Medicine (procedure) [code = 931045184] Future Scheduled 2021-08-07 PNEUMOVAX >=65 [facility] [employer] Test 10:28:39 (PPSV23) [code = of Medicine PNEUMOVAX >=65 (PPSV23)] Future Scheduled 2021-08-[address] UP [address]AN [facility] Test 10:28:39 [code = BMI FOLLOW UP of Med icine PLAN] Future Scheduled 2021-08-07 FALL SCREEN [code = [employer] Test 10:28:39 FALL SCREEN] of Medicine Future Scheduled 2012 PNEUMOCOCCAL 65+ YRS [facility] Test 00:00:00 (1 - PCV) [code = Medical Ce nter PNEUMOCOCCAL 65+ YRS (1 - PCV)] Future Scheduled 2012 PNEUMOCOCCAL 65+ YRS [facility] Test 00:00:00 (1 - PCV) [code = Medical Ce nter PNEUMOCOCCAL 65+ YRS (1 - PCV)] Future Scheduled 1997 SHINGLES VACCINES ([address] [facility] Test 00:00:00 of 2) [code = SHINGLES Medic al Center VACCINES (1 of 2)] Future Scheduled 1997 SHINGLES VACCINES ([address] [facility] Test 00:00:00 of 2) [code = SHINGLES Medic al Center VACCINES (1 of 2)] Future Scheduled 1966 DTAP/TDAP/TD [facility]ACCINES [facility] Test 00:00:00 (1 - Tdap) [code = Medical C enter DTAP/TDAP/TD VACCINES (1 - Tdap)] Future Scheduled 1966 DTAP/TDAP/TD [facility]ACCINES [facility] Test 00:00:00 (1 - Tdap) [code = Medical C enter DTAP/TDAP/TD VACCINES (1 - Tdap)] Future Scheduled 1965 HEPATITIS C [facility]CRE[facility]ING [facility] 00:00:00 [code = HEPATITIS C Medical Center SCREENING] Future Scheduled 1965 HE[facility]ITIS C [facility] 00:00:00 [code = HEPATITIS C Medical Center SCREENING] Future Scheduled 1948-06-01 COVID-19 VACCINE (#1) [facility] Test 00:00:00 [code = COVID-[address] VACCINE (#1)] Future Scheduled 1948-06-01 COVID-19 VACCINE (#1) [facility] 00:00:00 [code = COVID-[address] VACCINE (#1)] Future Scheduled [address] [facility] Test 00:00:00 (combo) [code = CT Medical C enter Colonography (combo)] Future Scheduled [address] [facility] Test 00:[facility]:00 malignant neoplasm of Medica l Center colon (procedure) [code = 242413162] Future Scheduled [address] [facility] Test 00:00:00 malignant neoplasm of Medica l Center colon (procedure) [code = 083743619] Future Scheduled 1947 DXA SCAN [code = DXA [facility] Test 00:00:00 SCAN] Medical Center Future Scheduled [address] [facility] Test 00:00:00 malignant neoplasm of Medica l Center colon (procedure) [code = 107668424] Future Scheduled [address] [facility] Test 00:00:00 malignant neoplasm of Medica l Center colon (procedure) [code = 862816711] Future Scheduled 1947 Sigmoidoscopy [facility]code [facility]] Medical Cente r Future Scheduled [address] [facility] Test 00:00:00 (combo) [code = CT Medical C enter Colonography (combo)] Future Scheduled [address] [facility] Test 00:00:00 malignant neoplasm of Medica l Center colon (procedure) [code = 955711787] Future Scheduled [address] [facility] Test 00:00:00 malignant neoplasm of Medica l Center colon (procedure) [code = 208123781] Future Scheduled 1947 DXA SCAN [code = DXA [facility] Test 00:00:00 SCAN] [facility] Future Scheduled [address] [facility] Test 00:00:00 malignant neoplasm of Medica l Center colon (procedure) [code = 700582512] Future Scheduled [address] [facility] Test 00:00:00 malignant neoplasm of Medica l Center colon (procedure) [code = 022309822] Future Scheduled 1947 Sigmoidoscopy [facility] End Encounter Admission Attending Care Care Encounter Source Date/Time Date/Time Type Type Clinicians Facility Department ID 2022-08-07 Outpatient GUILLERMINA BARNETT [facility] Surgery [id number] [facility] 11:50:22 ANISH 2022-04-23 Outpatient [facility] [id number] Common 15:41:01 [id number] [facility] 2021-12-11 Outpatient [facility] [id number] Common 14:07:10 [id number] [facility] 2021-12-11 Outpatient [facility] [id number] Common 13:52:30 [id number] [facility] 2021-08-25 Outpatient KAYCEE [facility] Surgery [id number] [facility] 10:47:11 CHRISTINE LACKEY 2022-09-10 2022-09-10 Outpatient GUILLERMINA BARNETT, [facility] [id number] [facility] 00:00:00 00:00:00 [facility] 2022-08-18 2022-09-05 Outpatient [facility] [id number] [facility] 14:03:06 14:04:41 ANISH mccann of Medicin e 2022-09-04 2022-09-04 Outside [facility] [id number] 00:[facility] 00:00:00 Orders [facility] 2022-09-04 2022-09-04 Outside [facility], [facility] [id number] [id number] 00:[facility] 00:00:00 Orders [facility] 2022-08-28 2022-08-28 Office JUAN STOCK [id number] [facility] 08:20:03 08:52:59 Visit SAMER AMBULATOR [id number] College Y [id number] [facility] 805 e 2022-08-28 2022-08-28 Outpatient CON[facility]ITA [facility] [id number] [facility] 07:59:53 07:59:53 GABRIELLA mccann of Medicin e 2022-08-18 2022-08-18 [facility] [id number] [id number] 09:30:00 10:30:00 [facility] 2022-08-18 2022-08-18 [facility] [id number] 09:30:00 10:30:00 [facility] 2022-08-18 2022-08-18 [facility] [id number] 09:30:00 09:30:00 Encounter [facility] 2022-08-18 2022-08-18 [facility] [id number] 09:30:00 09:30:00 Encounter [facility] 2022-08-08 2022-08-08 Outpatient GUILLERMINA SLEDanielle [facility] [id number] [facility] 14:38:59 23:59:00 2022-08-08 2022-08-08 [facility] [facility] [id number] 14:15:00 23:59:[address] [facility] 2022-08-08 2022-08-08 [facility] [id number] 14:15:00 23:59:[address] [facility] 2022-08-08 2022-08-08 Travel [facility] [id number] [facility] 00:[facility]00 00[facility]00 [facility] 2022-08-08 2022-08-08 Travel [facility] [id number] [facility] 00:[facility]00 00[facility]00 [facility] 2022-08-05 2022-08-05 [facility] [id number] 13:39:28 23:59:00 Encounter 1, [facility] 2022-08-05 2022-08-05 Outpatient BANG CHEN SLE [id number] SLE 13:39:28 23:59:00 [facility] 2022-08-05 2022-08-05 [facility] [id number] 13:39:28 23:59:00 Encounter 1, [facility] 2022-07-31 2022-07-31 [facility] [id number] 13:31:46 23:59:00 Encounter 1, [facility] 2022-07-31 2022-07-31 [facility] [id number] 13:31:46 23:59:00 Encounter 1, [facility] 2022-07-31 2022-07-31 Outpatient BANG CHEN SLEH [id number] SLEH 00:00:00 23:59:00 ANISH 2022-07-28 2022-07-28 Outpatient [facility] [id number] [facility] 00:00:00 23:59:00 Arabella Medicin siobhan 2022-07-28 2022-07-28 Emergency ER Ali, Amir [facility] [id number] 07:44:00 11:42:00 [facility] 2022-07-28 2022-07-28 Emergency ER ALI, AMIR [facility] Emergency [id number] SLE 07:44:00 11:42:00 2022-07-28 2022-07-28 Emergency Ali, Amir [facility] [id number] 07:44:00 11:42:00 [facility] 2022-07-28 2022-07-[address] [facility] [id number] 00:00:00 00:00:00 [facility] 2022-07-28 2022-07-28 Travel [facility] [id number] [facility] 00:[facility]:00 00:00:00 [facility] 2022-07-28 2022-07-[address] [facility] [id number] 00:00:00 00:00:00 [facility] 2022-07-28 2022-07-28 Travel [facility] [id number] [facility] 00:[facility]:00 00[facility]00 [facility] 2022-07-25 2022-07-25 Outside [facility] [id number] 00:00:00 00:00:00 Orders [facility] 2022-07-25 2022-07-25 Outside [facility] [id number] 00:00:00 00:00:00 Orders [facility] 2022-07-17 2022-07-17 Office JUAN STOCK 1.2.840.114 [id number] [facility] 13:52:11 16:09:30 Visit SAMER AMBULATOR 350.1.13.21 College Y 0.2.7.2.686 of [id number] [facility] marek 805 e 2022-07-15 2022-07-15 Outpatient Ferguson_Ro [facility] 120 [id number] [place] 00:00:00 00:00:00 bin [id number] [facility] 2022-07-14 2022-07-14 Outpatient Rajguson_Ro [facility] 120 [id number] [place] 00:00:00 00:00:00 bin [id number] [facility] 2022-07-14 2022-07-14 Santiago Pimentel [facility] [place] - [id number] [place] 00:00:00 00:00:00 Jaclyn Rico MD: [id number] [employer] copy reader [place] [address] HOP - [facility] [address] [place] Program [id number] , Ph. 2022-07-11 2022-07-11 Outpatient Rajguson_Ro [facility] 120 [id number] [place] 00:00:00 00:00:00 bin [id number] [facility] 2022-06-23 2022-06-24 Outpatient ERICKA [facility] [id number] [facility] 11:09:19 11:10:50 ANISH Alexiag e of Medicin e 2022-06-23 2022-06-23 Outpatient [facility] [id number] [facility] 10:58:00 23:59:00 [facility]in [facility] 2022-06-23 2022-06-23 [facility] [id number] 10:58:00 14:25:00 Encounter [facility] 2022-06-23 2022-06-23 [facility] [id number] [facility] 10:58:00 14:25:00 [facility] 2022-06-23 2022-06-23 [facility] [id number] 10:58:00 14:25:00 Encounter [facility] 2022-06-232022-06-23 Surgery Ericka, [facility] [id number] 12:30:00 13:30:00 [facility] 2022-06-23 2022-06-23 Surgery Ericka, [facility] [id number] 12:30:00 13:30:00 [facility] 2022-06-23 2022-06-23 Anesthesia [facility] [id number] 12:10:00 13:17:00 [facility] 2022-06-23 2022-06-23 Anesthesia [facility] [id number] 12:10:00 13:17:00 Event [facility] 2022-06-18 2022-06-18 Outpatient EL SLE SLE [id number] [facility]H 14:33:26 23:59:00 2022-06-18 2022-06-18 [facility] [id number] 14:15:00 23:59:[address] [facility] 2022-06-18 2022-06-18 [facility] [id number] 14:15:00 23:59:[address] [facility] 2022-06-08 2022-06-11 [facility] ER Rosalie Cardona [facility] [id number] [facility] 13:45:00 11:27:00 Encounter Lacey Stock [facility] 2022-06-08 2022-06-11 Inpatient ER BANG STOCK Emergency [id number] [facility] 13:45:00 11:27:00 SAME 2022-06-08 2022-06-[facility] [id number] [facility] 13:45:00 11:27:00 Encounter Lacey Stock [facility] 2022-06-10 2022-06-[address] [facility] [id number] 09:30:00 10:30:00 [facility] 2022-06-10 2022-06-[address] [facility] [id number] 09:30:00 10:30:00 [facility] 2022-06-10 2022-06-[address] [facility] [id number] 09:14:00 10:11:00 Event Oli [facility] 2022-06-10 2022-06-10 Anesthesia Ayden [facility] [id number] 09:14:00 10:11:00 Event Oli [facility] 2022-06-09 2022-06-[address] [facility] [id number] [facility] 13:10:00 13:55:00 Event [facility] 2022-06-09 2022-06-[address] [facility] [id number] [facility] 13:10:00 13:55:00 Event [facility] 2022-06-09 2022-06-[address] [facility] [id number] 12:10:00 13:10:00 [facility] 2022-06-09 2022-06-[address] [facility] [id number] 12:10:00 13:10:00 [facility] 2022-06-08 2022-06-08 Outpatient [facility] [id number] [facility] 13:45:00 23:59:00 [facility] 2022-06-08 2022-06-08 Outpatient [facility] [id number] [facility] 13:45:00 13:45:00 [facility] 2022-06-08 2022-06-08 Outpatient [facility] [id number] [facility] 00:00:00 13:44:00 [facility] 2022-06-08 2022-06-[address] [facility] [id number] 00:00:00 00:00:00 Only [facility] 2022-06-08 2022-06-08 Travel [facility] [id number] [facility] 00:00:00 00:00:00 [facility] 2022-06-08 2022-06-[address] [facility] [id number] 00:00:00 00:00:00 Only [facility] 2022-06-08 2022-06-08 Travel [facility] [id number] [facility] 00:00:00 00:00:00 [facility] 2022-06-04 2022-06-04 Departed ER TANYA DIOP [id number] THUAN 09:58:00 19:16:00 Emergency ROBERT [address] [place] [address] 2022-04-23 2022-04-23 ambulatory [facility] [id number] Common 00:00:00 00:00:00 [facility] - [facility] 2022-04-10 2022-04-10 Outpatient JUAN STOCK [facility] [id number] [facility] 14:16:49 14:38:28 SAMER [facility] 2022-02-10 2022-02-10 Office JUAN STOCK 1.2.840.114 [id number] [facility] 12:42:29 13:14:47 Visit SAMER AMBULATOR 350.1.13.21 College Y 0.2.7.2.686 of [id number] [facility] marek 805 e 2022-01-16 2022-01-16 Office JUAN STOCK 1.2.840.114 [id number] [facility] 12:44:34 13:03:40 Visit SAMER AMBULATOR 350.1.13.21 College Y 0.2.7.2.686 of [id number] Medi marek 805 e 2022-01-01 2022-01-03 [facility] Montrell [facility] [id number] 06:20:00 10:44:00 [facility] 2022-01-01 2022-01-03 Inpatient EL MONTRELL [facility] Surgery [id number] [facility] 06:20:00 10:44:00 SAMER 2022-01-01 2022-01-03 [facility] [id number] 06:20:00 10:44:00 Encounter Samer [facility] 2022-01-01 2022-01-01 Anesthesia Ulises Deanezio Choudhury [facility] [id number] 09:56:00 14:21:00 Event Cindi [facility] 2022-01-01 2022-01-01 Anesthesia Ulises Deanezio Choudhury [facility] [id number] 09:56:00 14:21:00 Event Cindi [facility] 2022-01-01 2022-01-01 [facility] [id number] 09:30:00 12:00:00 Samer [facility] 2022-01-01 2022-01-01 Surgery [facility] [id number] 09:30:00 12:00:00 Samer [facility] 2021-12-31 2021-12-31 [facility] [id number] 12:26:24 23:59:[address] [facility] 2021-12-31 2021-12-31 Outpatient EL SLE SLE [id number] [facility] 12:26:24 23:59:00 2021-12-31 2021-12-31 [facility] [id number] 12:26:24 23:59:[address] [facility] 2021-12-31 2021-12-31 Travel [facility] [id number] [facility] 00:00:00 00:00:00 [facility] 2021-12-31 2021-12-31 Travel [facility] [id number] [facility] 00:00:00 00:00:00 [facility] 2021-12-27 2021-12-27 [facility] [id number] 10:52:30 23:59:00 Encounter Samer [facility] 2021-12-27 2021-12-27 Outpatient EL EDWINATABridger, SLE SLE [id number] SLE 10:52:30 23:59:00 SAMER 2021-12-27 2021-12-27 [facility] [id number] 10:52:30 23:59:00 [facility] 2021-12-27 2021-12-27 Outpatient [facility] [id number] [facility] 00:00:00 23:59:00 Arabella Medicin e 2021-12-27 2021-12-27 Outpatient EL SLE SLE [id number] SLE 00:00:00 00:00:00 2021-12-27 2021-12-27 Outpatient GUILLERMINA STOCK SLE SLE [id number] [facility] 00:00:00 [facility]:00:00 [facility] 2021-12-27 2021-12-[address] [facility] [id number] 00:00:00 00:00:00 Only [facility] 2021-12-27 2021-12-[address] [facility] [id number] 00:00:00 00:00:00 Only [facility] 2021-12-19 2021-12-19 Office MATTAR, BCM 1.2.840.114 [id number] [facility] 10:07:12 10:43:44 Visit SAMER AMBULATOR 350.1.13.21 College Y 0.2.7.2.686 of [id number] [facility] marek 805 e 2021-11-14 2021-11-14 Office Mattar, BCM 1.2.840.114 [id number] [facility] 11:30:00 11:30:00 Visit Samer Gamil AMBULATOR 350.1.13.21 College Y 0.2.7.2.686 of [id number] Medi marek 805 e 2021-10-17 2021-10-17 Office JUAN Saha 1.2.840.114 [id number] [facility] 14:30:00 15:30:00 Visit Gabriella AMBULATOR 350.1.13.21 College Y 0.2.7.2.686 of [id number] Medi marek 810 e 2021-09-18 2021-09-18 Office JUAN SAHA 1.2.840.114 [id number] [facility] 10:14:10 11:05:34 Visit GABRIELLA AMBULATOR 350.1.13.21 College Y 0.2.7.2.686 of [id number] Medi marek 810 e 2021-09-03 2021-09-03 Outpatient JUAN SAHA [facility] [id number] [facility] 13:54:27 14:10:35 GABRIELLA [facility] [employer] 2021-08-15 2021-08-15 Office BARI Saha 1.2.840.114 [id number] [facility] 08:01:53 09:42:27 Visit Gabriella AMBULATOR 350.1.13.21 College Y 0.2.7.2.686 of [id number] Medi marek 810 e 2021-08-07 2021-08-07 Office BARI Rocha 1.2.840.114 [id number] [facility] 10:19:40 10:49:40 Visit Neetu AMBULATOR 350.1.13.21 College Y 0.2.7.2.686 of [id number] Medi marek 800 e 2021-07-17 2021-07-17 Outpatient SLE [facility] [id number] [facility] 00:00:00 00:00:00 2021-07-03 2021-07-03 Outpatient JUAN GONZALES [id number] [facility] 13:22:31 15:23:23 VIMBAI [facility] 2020-04-03 2020-04-03 Outpatient [facility] [id number] Access 11:00:00 11:00:00 [id number] [facility] [id number] 2020-04-03 2020-04-03 Outpatient ALON, [facility] [id number] AccessH 00:00:00 00:00:00 [facility] 2020-04-03 2020-04-03 Outpatient ALON, [facility] [id number] AccessH 00:00:00 00:00:00 IVOYR Terrazas 0000- [id number] [facility] [id number] 2016-10-07 2016-10-07 Outpatient Blu MMG MMG [id number] [place] 03:16:00 03:16:00 1027 [facility] Results Test Test Test Comments Results Result Source Description Time Comments JEF ASHTON, 2022-08- NON-SPECIFIC, 03 UP TO 1 HOUR 12:51:00 [facility] CENTERName: DYANA FRAUSTO : 1945 Sex: F An imaging unit was utilized for this procedure. No radiologist interpretation was requested. Refer to the EMR for findings. Refer to PACS for any patient radiation dose information. CT, ABDOMEN 2022-07- Ct scan with IV and PO 21 contrast. To evaluate 10:10:00 chrystal-anastomic CH[facility] collectionUnlisted [facility] Reason for Exam - CENTERName: FRAUSTO, Click Yes and Enter DYANA CHAMPION : Reason 1945 Sex: Below->YesUnlisted F Reason for Exam->k91.89Is this FI for NAL REPORT PATIENT enterography?->NoWill ID: [id number] CT of this procedure require the abdomen and oral contrast?->Yes pelvis, with contrast Clinical History: Unlisted Reason for Examk91.89 Technique: CT of the abdomen and pelvis is performed with intravenous contrast administration. This exam was performed according to our departmental dose optimization program which includes automated exposure control, adjustment of the mA and/or kV according to patient's size and/or use of iterative reconstructive technique. Comparison Film: None Discussion: Visualized lower thorax is unremarkable. No liver mass is identified. No biliary ductal dilatation, gallbladder is normal. Spleen contains a few punctate calcified granulomas. The pancreas, and adrenal glands are normal. Kidneys demonstrate no mass, hydronephrosis, or radiopaque stone. Patient is status post gastric bypass. Previously seen air-fluid collection lateral to the gastrojejunostomy now only contains air, and has been drained via a double ended pigtail catheter. The collection now measures 3.5 x 2.4 x 2.6 cm. There is another air-containing collection adjacent to the gastric pouch, that measures 1.3 x 0.8 x 0.8 cm. There is no bowel obstruction. In the pelvis, bladder, uterus and adnexa are unremarkable. There is no ascites or free air. No lymphadenopathy. Bony structures demonstrate mild degenerative changes. Impression: Previously seen air-fluid collection adjacent to the gastrojejunostomy now only contains air, status post drainage via a double ended pigtail catheter. There is also a tiny air-containing collection adjacent to the gastric pouch. Signed: Paul Kasper Verified Date/Time: 08/06/2022 10:10:38 Reading Location: [facility] C0X [facility] Reading Room SENSITIVITY TROPONIN I 2022-07-28 08:54:20 Test Item Value Reference Range Interpretation Comme nts HIGH SENSITIVITY TROPONIN I < pg/ml See_Comment [Automated message] The system (test code = 3316946) which generated this result transmitted ref erence range: <=17. The reference r radha was not used to interpret th is result as normal/abnormal . Artist'S Manager ID Janneth ESPINOSA WThe TMD TEACHER STAT High Sensitivity Troponin-I results should be used in conjunction with other diagnostic information such as ECG, clinical observations and information, and patient symptoms to aid in the diagnosis of AR.B-TYPE NATRIURETIC FACTOR (BNP)2022-07-28 08:54:03 Test Item Value Reference Range Interpretation Comments B-TYPE NATRIURETIC PEPTIDE (BEAKER) 136 pg/mL 0-100 H (test code = 700) Artist'S Manager ID Janneth ESPINOSA WBASIC METABOLIC [id number] 08:46:19 Test Item Value Reference Range Interpretation Comments SODIUM (BEAKER) 139 meq/L 136-145 (test code = 381) POTASSIUM 4.4 meq/L 3.5-5.1 (BEAKER) (test code = 379) CHLORIDE (BEAKER) 109 meq/L 98-107 H (test code = 382) CO2 (BEAKER) 22 meq/L 22-29 (test code = 355) BLOOD UREA 14 mg/dL 7-21 NITROGEN (BEAKER) (test code = 354) CREATININE 0.75 mg/dL 0.57-1.25 (BEAKER) (test code = 358) GLUCOSE RANDOM 95 mg/dL 70-105 (BEAKER) (test code = 652) CALCIUM (BEAKER) 9.8 mg/dL 8.4-10.2 (test code = 697) EGFR (BEAKER) 83 Interpretatio n of eGFR (test code = mL/min/1.73 values Stage De scription 1092) sq m Result G1 Onelia l or high >=90 G2 Mildly decreased 60-89 G3a Mildl y to moderately 45-5 9 G3b Moderately to s everely 30-44 G4 Severl y decreased 15-29 G5 Kidney failure <15Reported eGF R is based on the CKD-EPI 2021 equation that d oes not use a race coefficientEsti mated GFR is not as accur ate as Creatinine Latisha hobbs in predicting glom erular filtration rate . Estimated GFR is not appl icable for dialysis patien ts Artist'S Manager ID Janneth ESPINOSA WCBC W/PLT COUNT & AUTO [id number] 08:31:34 Test Item Value Reference Range Interpretation Comments WHITE BLOOD CELL COUNT (BEAKER) 10.8 K/ L 3.5-10.5 H (test code = 775) RED BLOOD CELL COUNT (BEAKER) 4.10 M/ L 3.93-5.22 (test code = 761) HEMOGLOBIN (BEAKER) (test code = 12.2 GM/DL 11.2-15.7 410) HEMATOCRIT (BEAKER) (test code = 35.7 % 34.1-44.9 411) MEAN CORPUSCULAR VOLUME (BEAKER) 87.1 fL 79.4-94.8 (test code = 753) MEAN CORPUSCULAR HEMOGLOBIN 29.8 pg 25.6-32.2 (BEAKER) (test code = 751) MEAN CORPUSCULAR HEMOGLOBIN CONC 34.2 GM/DL 32.2-35.5 (BEAKER) (test code = 752) RED CELL DISTRIBUTION WIDTH 15.8 % 11.7-14.4 H (BEAKER) (test code = 412) PLATELET COUNT (BEAKER) (test 233 K/CU MM 150-450 code = 756) MEAN PLATELET VOLUME (BEAKER) 11.4 fL 9.4-12.3 (test code = 754) NUCLEATED RED BLOOD CELLS 0 /100 WBC 0-0 (BEAKER) (test code = 413) NEUTROPHILS RELATIVE PERCENT 58 % (BEAKER) (test code = 429) LYMPHOCYTES RELATIVE PERCENT 35 % (BEAKER) (test code = 430) MONOCYTES RELATIVE PERCENT 6 % (BEAKER) (test code = 431) EOSINOPHILS RELATIVE PERCENT 0 % (BEAKER) (test code = 432) BASOPHILS RELATIVE PERCENT 0 % (BEAKER) (test code = 437) NEUTROPHILS ABSOLUTE COUNT 6.25 K/ L 1.56-6.13 H (BEAKER) (test code = 670) LYMPHOCYTES ABSOLUTE COUNT 3.79 K/ L 1.18-3.74 H (BEAKER) (test code = 414) MONOCYTES ABSOLUTE COUNT (BEAKER) 0.63 K/ L 0.24-0.36 H (test code = 415) EOSINOPHILS ABSOLUTE COUNT 0.03 K/ L 0.04-0.36 L (BEAKER) (test code = 416) BASOPHILS ABSOLUTE COUNT (BEAKER) 0.04 K/ L 0.01-0.08 (test code = 417) IMMATURE GRANULOCYTES-RELATIVE 0 % 0-1 PERCENT (BEAKER) (test code = 2801) RAD, CHEST, 1 VIEW, NON [id number] 08:21:00Reason for exam:->evaluation of pulmonary edemaShould this be performed at the bedside?->Yes [facility] : 1945 Sex: FFINALREPORT INDICATION: evaluation of pulmonary edema COMPARISON: None TECHNIQUE: Single frontal view of the chest. FINDINGS: Lungs and pleura: Clear lungs. No effusion.Heart and mediastinum: Normal heart size. Unremarkable mediastinal contours.Osseous structures: No acute abnormality.Other: None. IMPRESSION: No acute intrathoracic abnormality. Signed: Catalina Patrick MDReport Verified Date/Time: 07/28/2022 08:21:30 Reading Location: [address] Reading Room FL, FLUORO, NON-SPECIFIC, UP TO 1 [id number] 13:24:00 Reason for exam:->abnormal imaging [facility]ma : 1945 Sex: FAn imaging unit was utilized for this procedure. No radiologist interpretation was requested. Refer to theEMR for findings. Refer to PACS for any patient radiation dose information.FL, FLUORO, NON-SPECIFIC, UP TO 1 [id number] 09:50:00Intra-op imaging Reason for exam:->GastroJejunal Abscess [facility] : 1945 Sex: FAn imaging unit was utilized for this procedure. No radiologist interpretation was requested. Refer to theEMR for findings. Refer to PACS for any patient radiation dose information.[id number] 04:51:58 Test Item Value Reference Range Interpretation Comments PHOSPHORUS (BEAKER) (test code = 2.7 mg/dL 2.3-4.7 604) Artist'S Manager ID - JESÚS WBASIC METABOLIC [id number] 04:51:57 Test Item Value Reference Range Interpretation Comments SODIUM (BEAKER) 140 meq/L 136-145 (test code = 381) POTASSIUM (BEAKER) 4.1 meq/L 3.5-5.1 (test code = 379) CHLORIDE (BEAKER) 105 meq/L 98-107 (test code = 382) CO2 (BEAKER) (test 28 meq/L 22-29 code = 355) BLOOD UREA NITROGEN 5 mg/dL 7-21 L (BEAKER) (test code = 354) CREATININE (BEAKER) 0.63 mg/dL 0.57-1.25 (test code = 358) GLUCOSE RANDOM 77 mg/dL 70-105 (BEAKER) (test code = 652) CALCIUM (BEAKER) 8.6 mg/dL 8.4-10.2 (test code = 697) EGFR (BEAKER) (test 92 mL/min/1.73 ESTIMA YONATAN GFR IS code = 1092) sq m NOT ACCURATE CREATININE CLEARANCE IN PREDICTING GLOMERULAR FILTRATION RATE . ESTIMATED GFR I S NOT APPLICABLE FOR DIALYSIS PATIEN TS. Artist'S Manager ID - JESÚS [id number] 04:51:57 Test Item Value Reference Range Interpretation Comments MAGNESIUM (BEAKER) (test code = 2.0 mg/dL 1.6-2.6 627) Artist'S Manager ID - JESÚS WCBC W/PLT COUNT & AUTO [id number] 04:26:27 Test Item Value Reference Range Interpretation Comments WHITE BLOOD CELL COUNT (BEAKER) 7.5 K/ L 3.5-10.5 (test code = 775) RED BLOOD CELL COUNT (BEAKER) 3.32 M/ L 3.93-5.22 L (test code = 761) HEMOGLOBIN (BEAKER) (test code = 9.6 GM/DL 11.2-15.7 L 410) HEMATOCRIT (BEAKER) (test code = 30.2 % 34.1-44.9 L 411) MEAN CORPUSCULAR VOLUME (BEAKER) 91.0 fL 79.4-94.8 (test code = 753) MEAN CORPUSCULAR HEMOGLOBIN 28.9 pg 25.6-32.2 (BEAKER) (test code = 751) MEAN CORPUSCULAR HEMOGLOBIN CONC 31.8 GM/DL 32.2-35.5 L (BEAKER) (test code = 752) RED CELL DISTRIBUTION WIDTH 14.9 % 11.7-14.4 H (BEAKER) (test code = 412) PLATELET COUNT (BEAKER) (test 213 K/CU MM 150-450 code = 756) MEAN PLATELET VOLUME (BEAKER) 11.8 fL 9.4-12.3 (test code = 754) NUCLEATED RED BLOOD CELLS 0 /100 WBC 0-0 (BEAKER) (test code = 413) NEUTROPHILS RELATIVE PERCENT 52 % (BEAKER) (test code = 429) LYMPHOCYTES RELATIVE PERCENT 39 % (BEAKER) (test code = 430) MONOCYTES RELATIVE PERCENT 7 % (BEAKER) (test code = 431) EOSINOPHILS RELATIVE PERCENT 1 % (BEAKER) (test code = 432) BASOPHILS RELATIVE PERCENT 1 % (BEAKER) (test code = 437) NEUTROPHILS ABSOLUTE COUNT 3.91 K/ L 1.56-6.13 (BEAKER) (test code = 670) LYMPHOCYTES ABSOLUTE COUNT 2.92 K/ L 1.18-3.74 (BEAKER) (test code = 414) MONOCYTES ABSOLUTE COUNT (BEAKER) 0.51 K/ L 0.24-0.36 H (test code = 415) EOSINOPHILS ABSOLUTE COUNT 0.10 K/ L 0.04-0.36 (BEAKER) (test code = 416) BASOPHILS ABSOLUTE COUNT (BEAKER) 0.04 K/ L 0.01-0.08 (test code = 417) IMMATURE GRANULOCYTES-RELATIVE 0 % 0-1 PERCENT (BEAKER) (test code = 2801) [id number] 07:18:37 Test Item Value Reference Range Interpretation Comments PHOSPHORUS (BEAKER) (test code = 3.2 mg/dL 2.3-4.7 604) Artist'S Manager ID - PIAYA LBASIC METABOLIC [id number] 07:18:36 Test Item Value Reference Range Interpretation Comments SODIUM (BEAKER) 137 meq/L 136-145 (test code = 381) POTASSIUM (BEAKER) 3.3 meq/L 3.5-5.1 L (test code = 379) CHLORIDE (BEAKER) 103 meq/L 98-107 (test code = 382) CO2 (BEAKER) (test 26 meq/L 22-29 code = 355) BLOOD UREA NITROGEN 8 mg/dL 7-21 (BEAKER) (test code = 354) CREATININE (BEAKER) 0.68 mg/dL 0.57-1.25 (test code = 358) GLUCOSE RANDOM 80 mg/dL 70-105 (BEAKER) (test code = 652) CALCIUM (BEAKER) 8.5 mg/dL 8.4-10.2 (test code = 697) EGFR (BEAKER) (test 85 mL/min/1.73 ESTIMA YONATAN GFR IS code = 1092) sq m NOT ACCURATE CREATININE CLEARANCE IN PREDICTING GLOMERULAR FILTRATION RATE . ESTIMATED GFR I S NOT APPLICABLE FOR DIALYSIS PATIEN TS. Artist'S Manager ID - PIVANESSA [id number] 07:18:36 Test Item Value Reference Range Interpretation Comments MAGNESIUM (BEAKER) (test code = 1.3 mg/dL 1.6-2.6 L 627) Artist'S Manager ID - SARAVANAN LPT/[id number] 05:51:00 Test Item Value Reference Range Interpretation Comments PROTIME (BEAKER) (test 14.7 seconds 11.9-14.2 H code = 759) INR (BEAKER) (test 1.17 See_Comment [Automat ed code = 370) message] The sy stem which generated this result transmitted reference range : <=5.90. The reference range was not used to interpret this result as normal/abnormal . PARTIAL THROMBOPLASTIN 39.0 seconds 22.5-36.0 H TIME (BEAKER) (test code = 760) RECOMMENDED COUMADIN/WARFARIN INR THERAPY RANGESSTANDARD DOSE: 2.0 - 3.0 Includes: PROPHYLAXIS for venous thrombosis, systemic embolization; TREATMENT for venous thrombosis and/or pulmonary embolus.HIGH RISK: Target INR is 2.5-3.5 for patients with mechanical heart valves.CBC W/PLT COUNT & AUTO [id number] 05:28:19 Test Item Value Reference Range Interpretation Comments WHITE BLOOD CELL COUNT 9.0 K/ L 3.5-10.5 (BEAKER) (test code = 775) RED BLOOD CELL COUNT 3.46 M/ L 3.93-5.22 L (BEAKER) (test code = 761) HEMOGLOBIN (BEAKER) 10.0 GM/DL 11.2-15.7 L Discorda nt result (test code = 410) compared t o previous result. Clinica l correlation req uired HEMATOCRIT (BEAKER) 31.6 % 34.1-44.9 L (test code = 411) MEAN CORPUSCULAR 91.3 fL 79.4-94.8 VOLUME (BEAKER) (test code = 753) MEAN CORPUSCULAR 28.9 pg 25.6-32.2 HEMOGLOBIN (BEAKER) (test code = 751) MEAN CORPUSCULAR 31.6 GM/DL 32.2-35.5 L HEMOGLOBIN CONC (BEAKER) (test code = 752) RED CELL DISTRIBUTION 15.2 % 11.7-14.4 H WIDTH (BEAKER) (test code = 412) PLATELET COUNT 235 K/CU MM 150-450 (BEAKER) (test code = 756) MEAN PLATELET VOLUME 12.1 fL 9.4-12.3 (BEAKER) (test code = 754) NUCLEATED RED BLOOD 0 /100 WBC 0-0 CELLS (BEAKER) (test code = 413) NEUTROPHILS RELATIVE 48 % PERCENT (BEAKER) (test code = 429) LYMPHOCYTES RELATIVE 41 % PERCENT (BEAKER) (test code = 430) MONOCYTES RELATIVE 10 % PERCENT (BEAKER) (test code = 431) EOSINOPHILS RELATIVE 1 % PERCENT (BEAKER) (test code = 432) BASOPHILS RELATIVE 0 % PERCENT (BEAKER) (test code = 437) NEUTROPHILS ABSOLUTE 4.27 K/ L 1.56-6.13 COUNT (BEAKER) (test code = 670) LYMPHOCYTES ABSOLUTE 3.66 K/ L 1.18-3.74 COUNT (BEAKER) (test code = 414) MONOCYTES ABSOLUTE 0.87 K/ L 0.24-0.36 H COUNT (BEAKER) (test code = 415) EOSINOPHILS ABSOLUTE 0.11 K/ L 0.04-0.36 COUNT (BEAKER) (test code = 416) BASOPHILS ABSOLUTE 0.03 K/ L 0.01-0.08 COUNT (BEAKER) (test code = 417) IMMATURE 0 % 0-1 GRANULOCYTES-RELATIVE PERCENT (BEAKER) (test code = 2801) Urinalysis w/Microscopic + Reflex to [id number] 02:50:50 Test Item Value Reference Range Interpretation Comments Color, UA (test code Yellow = 5778-6) Clarity, UA (test Hazy code = 5767-9) Specific [place], UA 1.013 1.001-1.035 (test code = 5811-5) pH, UA (test code = 6.5 5.0-8.0 5803-2) Protein, UA (test 20 mg/dL Negative A code = 07236-4) Glucose, UA (test Negative Negative code = 365) Ketones, UA (test Negative Negative code = 2514-8) Bilirubin, UA (test Negative Negative code = 99506-5) Blood, UA (test code Negative Negative = 65165-8) Nitrite, UA (test Negative Negative code = 5802-4) Leukocytes, UA (test Negative Negative code = 5799-2) Urobilinogen, UA 0.2 mg/dL 0.2-1.0 (test code = 98858-3) RBC, UA (test code = 4 See_Comment [Autom ated 82482-3) message] The system which generated this result transmit yonatan reference range : /HPF. The reference range was not used to interpret this result as normal/abnormal . WBC, UA (test code = 4 See_Comment [Autom ated 5821-4) message] The system which generated this result transmit yonatan reference range : /HPF. The reference range was not used to interpret this result as normal/abnormal . Bacteria, UA (test Rare code = 46534-4) Mucus (test code = Many 8247-9) Crystals, Urine (test None Seen code = 81034-1) Ca Oxalate Nelly, UA Many (test code = 81677-0) Specimen Source (test code = 2795) VALERIE (test code = VALERIE) Artist'S Manager ID - [auto]Artist'S Manager ID - tech Lab Interpretation Abnormal (test code = 50058-1) [facility]lex to Culture 2022-06-09 02:50:50 Test Item Value Reference Range Interpretation Comments Color, UA (test code Yellow = 5778-6) Clarity, UA (test Hazy code = 5767-9) Specific [place], UA 1.013 1.001-1.035 (test code = 5811-5) pH, UA (test code = 6.5 5.0-8.0 5803-2) Protein, UA (test 20 mg/dL Negative A code = 09711-7) Glucose, UA (test Negative Negative code = 365) Ketones, UA (test Negative Negative code = 2514-8) Bilirubin, UA (test Negative Negative code = 94945-8) Blood, UA (test code Negative Negative = 66333-4) Nitrite, UA (test Negative Negative code = 5802-4) Leukocytes, UA (test Negative Negative code = 5799-2) Urobilinogen, UA 0.2 mg/dL 0.2-1.0 (test code = 07452-1) RBC, UA (test code = 4 See_Comment [Autom ated 18966-0) message] The system which generated this result transmit yonatan reference range : /HPF. The reference range was not used to interpret this result as normal/abnormal . WBC, UA (test code = 4 See_Comment [Autom ated 5821-4) message] The system which generated this result transmit yonatan reference range : /HPF. The reference range was not used to interpret this result as normal/abnormal . Bacteria, UA (test Rare code = 14901-7) Mucus (test code = Many 8247-9) Crystals, Urine (test None Seen code = 03083-3) Ca Oxalate Nelly, UA Many (test code = 43896-0) Specimen Source (test code = 2795) VALERIE (test code = VALERIE) Artist'S Manager ID - [auto]Artist'S Manager ID - tech Lab Interpretation Abnormal (test code = 43096-4) [facility] URINE [id number] 02:50:50 Test Item Value Reference Range Interpretation Comments COLOR (BEAKER) (test code = 470) Yellow CLARITY (BEAKER) (test code = 469) Hazy SPECIFIC GRAVITY UA (BEAKER) (test 1.013 1.001-1.035 code = 468) PH UA (BEAKER) (test code = 467) 6.5 5.0-8.0 PROTEIN UA (BEAKER) (test code = 20 mg/dL Negative A 464) GLUCOSE UA (BEAKER) (test code = Negative Negative 365) KETONES UA (BEAKER) (test code = Negative Negative 371) BILIRUBIN UA (BEAKER) (test code = Negative Negative 462) BLOOD UA (BEAKER) (test code = 461) Negative Negative NITRITE UA (BEAKER) (test code = Negative Negative 465) LEUKOCYTE ESTERASE UA (BEAKER) Negative Negative (test code = 466) UROBILINOGEN UA (BEAKER) (test code 0.2 mg/dL 0.2-1.0 = 463) RBC UA (BEAKER) (test code = 519) 4 /HPF WBC UA (BEAKER) (test code = 520) 4 /HPF BACTERIA (BEAKER) (test code = 517) Rare MUCUS (BEAKER) (test code = 1574) Many CRYSTALS, URINE (BEAKER) (test code None Seen = 1521) CALCIUM OXALATE CRYSTALS (BEAKER) Many (test code = 518) SOURCE(BEAKER) (test code = 2795) Artist'S Manager ID - [auto]Artist'S Manager ID - techCT, [id number] 18:42:00Unlisted Reason for Exam - Click Yes and Enter Reason Below->NoIs this for enterography?->NoWill this procedure require oral contrast?->No [facility] 1945 Sex: FFINALREPORT TECHNIQUE: CT of the abdomen and pelvis WITHOUT intravenous contrast andWITH oral contrast. Dose modulation, iterative reconstruction, and/or weight-based adjustment of themA/kV was utilized to reduce the radiation dose to as low as reasonably achievable. INDICATION: Peritonitis or perforation suspected. COMPARISON: None. FINDINGS: ABSENCE OF INTRAVENOUS CONTRAST DECREASES SENSITIVITY FOR DETECTION OF FOCAL LESIONS AND VASCULAR PATHOLOGY. LOWER THORAX: Unremarkable. HEPATOBILIARY: No focal hepatic lesions. Gallbladder is unremarkable. No biliary ductal dilatation.SPLEEN: No splenomegaly.ADRENALS: No adrenal nodules.PANCREAS: No focal masses or ductal dilatation.LYMPH NODES: No lymphadenopathy. KIDNEYS/URETERS: No hydronephrosis, stones, or exophytic masses.PELVIC ORGANS/BLADDER: Unremarkable.VESSELS: Unremarkable.PERITONEUM/RETROPERITONEUM: No free air or fluid. GI TRACT: Dulce Maria-en-Y gastric bypass. There appears to be some thickening of the gastrojejunostomy. The left lateral aspect of the gastrojejunostomy is a apparent collection with air-fluid level and surrounding induration. This measures approximately 3.0 x 1.5 x 1.6 cm. No extraluminal enteric contrast is identified. There is no contrast within the proximal jejunum or nasogastric. There are some secondary inflammatory changes of the splenic flexure the colon adjacent to the level of the gastrojejunostomy.BONES AND SOFT TISSUES: Unremarkable. IMPRESSION: 1. 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 There is an air-fluid level within a 3.0 x 1.5 x 1.6 cm collection versus blind end of the jejunal loop. There is some induration of the adjacent fat as well assome mild thickening of the adjacent splenic flexure of the colon indicative of underlying acute inflammation favoring a collection. No free air. No extraluminal contrast is identified or evidence for bowel obstruction. It remains uncertain as to whether this collection is secondary to a marginal ulcer at the gastrojejunostomy as there is some apparent thickening at this level or alternatively arisesfrom communication with the gastric fundus lumen to the left of the original vertical banding gastroplasty. Findings discussed with Dr. Pearson at 6:36 PM on 06/08/2022 Signed: Terri Arellano MDReport Verified Date/Time: 06/08/2022 18:42:47 SARS-CoV2/RT-PCR (Asymptomatic ONLY)2022-06-08 18:37:23 Test Item Value Reference Interpretation Comments Range SARS-COV2/RT-PCR Negative Negative The SARS-Co V-2 (test code = target nucleic 47557-0) acids are not detected in thi s specimen. Negat lesly results do not preclude SARS-C oV-2 infection and should not be u sed as the sole bas is for patient management decisions. Nega tive results must be combined with clinical observations, patient history , and epidemiolog ical information. A false negative result may occu r if a specimen is improperly collected, transported or handled. This S ARS CoV-2 test is a rapid, real-jimenez e RT-PCR test intended for th e qualitative detection of nucleic acid fr om SARS-CoV-2 in a nasopharyngeal swab specimen collec yonatan from individual s suspected of COVID-19 by the ir healthcare provider. VAELRIE (test code = This test has been VALERIE) authorized by FDA under an EUA for use by authorized laboratories. This test is only authorized for the duration of the declaration that circumstances exist justifying the authorization of emergency use of in vitro diagnostic tests for detection and/or diagnosis of COVID-19 under Section 564(b)(1) of the Federal Food, Drug and Cosmetic Act, 21 U.S.C. 360bbb-3(b)(1), unless the authorization is terminated or revoked sooner. Fact Sheet for Healthcare Providers: https://www.[employer]/Documents/Xp ert%20Xpress%20SAR S%20CoV-2/Fact%20S heets/302-3802%20S ARS-COV-2%20HEALTH CARE%20PROVIDERS%2 0FACT%20SHEET.pdf Fact Sheet for Healthcare Patients: https://www.[employer]/Documents/Xp ert%20Xpress%20SAR S%20CoV-2/Fact%20S heets/302-3801%20S ARS-COV-2%20PATIEN T%20FACT%20SHEET.p df Lab Interpretation Normal (test code = 19925-5) [facility]2022-06-08 18:37:23 Test Item Value Reference Interpretation Comments Range SARS-COV2/RT-PCR Negative Negative The SARS-Co V-2 (test code = target nucleic 52046-6) acids are not detected in thi s specimen. Negat lesly results do not preclude SARS-C oV-2 infection and should not be u sed as the sole bas is for patient management decisions. Nega tive results must be combined with clinical observations, patient history , and epidemiolog ical information. A false negative result may occu r if a specimen is improperly collected, transported or handled. This S ARS CoV-2 test is a rapid, real-jimenez e RT-PCR test intended for th e qualitative detection of nucleic acid fr om SARS-CoV-2 in a nasopharyngeal swab specimen collec yonatan from individual s suspected of COVID-19 by the ir healthcare provider. VALERIE (test code = This test has been VALERIE) authorized by FDA under an EUA for use by authorized laboratories. This test is only authorized for the duration of the declaration that circumstances exist justifying the authorization of emergency use of in vitro diagnostic tests for detection and/or diagnosis of COVID-19 under Section 564(b)(1) of the Federal Food, Drug and Cosmetic Act, 21 U.S.C. 360bbb-3(b)(1), unless the authorization is terminated or revoked sooner. Fact Sheet for Healthcare Providers: https://www.[employer]/Documents/Xp ert%20Xpress%20SAR S%20CoV-2/Fact%20S heets/302-3802%20S ARS-COV-2%20HEALTH CARE%20PROVIDERS%2 0FACT%20SHEET.pdf Fact Sheet for Healthcare Patients: https://www.[employer]/Documents/Xp ert%20Xpress%20SAR S%20CoV-2/Fact%20S heets/302-3801%20S ARS-COV-2%20PATIEN T%20FACT%20SHEET.p df Lab Interpretation Normal (test code = 09789-7) [facility])2022-06-08 18:37:23 Test Item Value Reference Range Interpretation Comments SARS-COV2/RT-PCR Negative Negative The SARS-Co V-2 target (test code = nucleic acids a re not 7541994) detected in thi s specimen. Negative result s do not preclude SARS-C oV-2 infection and s hould not be used as the adam e basis for patient managem ent decisions. Nega tive results must be combine d with clinical observ ations, patient history , and epidemiological information. A false negativ e result may occur if a spec imen is improperly sandra ected, transported or handled. This SARS CoV-2 test is a rapid, real-time RT-PC R test intended for th e qualitative detection of nu cleic acid from SARS-CoV-2 in a nasopharyngeal swab specimen collected from individuals suspected of CO VID-19 by their healthcar e provider. This test has been authorized by FDA under an EUA for use by authorized laboratories. This test is only authorized for the duration of the declaration that circumstances exist justifying the authorization of emergency use of in vitro diagnostic tests for detection and/or diagnosis of COVID-19 under Section 564(b)(1) of the Federal Food, Drug and Cosmetic Act, 21 U.S.C. 360bbb-3(b)(1), unless the authorization is terminated or revoked sooner. Fact Sheet for Healthcare Providers: https://www.[employer] m/Documents/Xpert%20Xpress%20SARS%20CoV-2/Fact%20Sheets/302-3802%22BNZC-XQM-4%20 HEALTHCARE%20PROVIDERS%20FACT%20SHEET.pdf Fact Sheet for Healthcare Patients: https://www.[employer]/Documents/Xpert%20Xp ress%20SARS%20CoV-2/Fact%20Sheets/302-3801%66MIMJ-NRT-4%20PATIENT%20FACT%20SHEET .pdfLACTIC ACID, [id number] 15:57:46 Test Item Value Reference Range Interpretation Comments LACTATE BLOOD VENOUS 1.24 mmol/L 0.50-2.20 Specime n moderately (2) (BEAKER) (test hemolyzed code = 2872) Artist'S Manager ID - JESÚS WPT/[id number] 15:12:26 Test Item Value Reference Range Interpretation Comments PROTIME (BEAKER) (test 13.8 seconds 11.9-14.2 code = 759) INR (BEAKER) (test 1.07 See_Comment [Automat ed code = 370) message] The sy stem which generated this result transmitted reference range : <=5.90. The reference range was not used to interpret this result as normal/abnormal . PARTIAL THROMBOPLASTIN 33.6 seconds 22.5-36.0 TIME (BEAKER) (test code = 760) RECOMMENDED COUMADIN/WARFARIN INR THERAPY RANGESSTANDARD DOSE: 2.0 - 3.0 Includes: PROPHYLAXIS for venous thrombosis, systemic embolization; TREATMENT for venous thrombosis and/or pulmonary embolus.HIGH RISK: Target INR is 2.5-3.5 for patients with mechanical heart valves.COMPREHENSIVE METABOLIC PANEL 2022-06-08 14:57:41 Test Item Value Reference Range Interpretation Comments TOTAL PROTEIN 6.9 gm/dL 6.0-8.3 (BEAKER) (test code = 770) ALBUMIN (BEAKER) 3.6 g/dL 3.5-5.0 (test code = 1145) ALKALINE PHOSPHATASE 108 U/L 40-150 (BEAKER) (test code = 346) BILIRUBIN TOTAL 0.5 mg/dL 0.2-1.2 (BEAKER) (test code = 377) SODIUM (BEAKER) (test 140 meq/L 136-145 code = 381) POTASSIUM (BEAKER) 3.9 meq/L 3.5-5.1 (test code = 379) CHLORIDE (BEAKER) 103 meq/L 98-107 (test code = 382) CO2 (BEAKER) (test 27 meq/L 22-29 code = 355) BLOOD UREA NITROGEN 8 mg/dL 7-21 (BEAKER) (test code = 354) CREATININE (BEAKER) 0.77 mg/dL 0.57-1.25 (test code = 358) GLUCOSE RANDOM 101 mg/dL 70-105 (BEAKER) (test code = 652) CALCIUM (BEAKER) 9.5 mg/dL 8.4-10.2 (test code = 697) AST (SGOT) (BEAKER) 22 U/L 5-34 (test code = 353) ALT (SGPT) (BEAKER) 15 U/L 6-55 (test code = 347) EGFR (BEAKER) (test 73 mL/min/1.73 ESTIMA YONATAN GFR IS code = 1092) sq m NOT ACCURATE CREATININE CLEARANCE IN PREDICTING GLOMERULAR FILTRATION RATE . ESTIMATED GFR I S NOT APPLICABLE FOR DIALYSIS PATIEN TS. Artist'S Manager ID - JESÚS [id number] 14:57:41 Test Item Value Reference Range Interpretation Comments LIPASE (BEAKER) (test code = 749) 5 U/L 8-78 L Artist'S Manager ID - JESÚS WCBC W/PLT COUNT & AUTO [id number] 14:45:15 Test Item Value Reference Range Interpretation Comments WHITE BLOOD CELL COUNT (BEAKER) 12.2 K/ L 3.5-10.5 H (test code = 775) RED BLOOD CELL COUNT (BEAKER) 4.49 M/ L 3.93-5.22 (test code = 761) HEMOGLOBIN (BEAKER) (test code = 13.6 GM/DL 11.2-15.7 410) HEMATOCRIT (BEAKER) (test code = 42.3 % 34.1-44.9 411) MEAN CORPUSCULAR VOLUME (BEAKER) 94.2 fL 79.4-94.8 (test code = 753) MEAN CORPUSCULAR HEMOGLOBIN 30.3 pg 25.6-32.2 (BEAKER) (test code = 751) MEAN CORPUSCULAR HEMOGLOBIN CONC 32.2 GM/DL 32.2-35.5 (BEAKER) (test code = 752) RED CELL DISTRIBUTION WIDTH 15.5 % 11.7-14.4 H (BEAKER) (test code = 412) PLATELET COUNT (BEAKER) (test 279 K/CU MM 150-450 code = 756) MEAN PLATELET VOLUME (BEAKER) 11.5 fL 9.4-12.3 (test code = 754) NUCLEATED RED BLOOD CELLS 0 /100 WBC 0-0 (BEAKER) (test code = 413) NEUTROPHILS RELATIVE PERCENT 56 % (BEAKER) (test code = 429) LYMPHOCYTES RELATIVE PERCENT 33 % (BEAKER) (test code = 430) MONOCYTES RELATIVE PERCENT 10 % (BEAKER) (test code = 431) EOSINOPHILS RELATIVE PERCENT 1 % (BEAKER) (test code = 432) BASOPHILS RELATIVE PERCENT 1 % (BEAKER) (test code = 437) NEUTROPHILS ABSOLUTE COUNT 6.79 K/ L 1.56-6.13 H (BEAKER) (test code = 670) LYMPHOCYTES ABSOLUTE COUNT 4.02 K/ L 1.18-3.74 H (BEAKER) (test code = 414) MONOCYTES ABSOLUTE COUNT (BEAKER) 1.17 K/ L 0.24-0.36 H (test code = 415) EOSINOPHILS ABSOLUTE COUNT 0.09 K/ L 0.04-0.36 (BEAKER) (test code = 416) BASOPHILS ABSOLUTE COUNT (BEAKER) 0.06 K/ L 0.01-0.08 (test code = 417) IMMATURE GRANULOCYTES-RELATIVE 0 % 0-1 PERCENT (BEAKER) (test code = 2801) RAD, CHEST, 1 VIEW, NON [id number] 14:10:00Reason for exam:->Free AirShould this be performed at the bedside?->Yes [facility] : 1945 Sex: FFINALREPORT Chest one view. Clinical history: Free Air Comparison: None Discussion: A frontal chest is provided. The cardiac and mediastinal contours are normal. There is no pneumothorax, jose alfredo pulmonary edema, consolidation or large pleural effusion. The bony structures demonstrate mild degenerative changes.. Signed: Paul Kasperepyobany Verified Date/Time: 06/08/2022 14:10:00 Blood erythrocytes automated count (number/volume)2022-06-04 12:05:00 Test Item Value Reference Range Interpretation Comments Red Blood Count (test code = 789-8) 3.84 3.93-5.22 [facility] (mass/volume)2022-06-04 12:05:00 Test Item Value Reference Range Interpretation Comments Hemoglobin (test code = 718-7) 11.0 11.2-15.7 [facility] HealthAutomated blood hematocrit (volume fraction)2022-06-04 12:05:00 Test Item Value Reference Range Interpretation Comments Hematocrit (test code = 4544-3) 34.1 34.1-44.9 [facility] HealthAutomated erythrocyte mean corpuscular volume (MCV) measurement 2022-06-04 12:05:00 Test Item Value Reference Range Interpretation Comments Mean Corpuscular Volume (test code = 88.8 80.0-96.1 787-2) [facility] HealthAutomated erythrocyte mean corpuscular hemoglobin (mass per erythrocyte)2022-06-04 12:05:00 Test Item Value Reference Range Interpretation Comments Mean Corpuscular Hemoglobin (test code 28.6 25.6-32.2 = 785-6) [facility] HealthAutomated erythrocyte mean corpuscular hemoglobin concentration measurement (mass/volume)2022-06-04 12:05:00 Test Item Value Reference Range Interpretation Comments Mean Corpuscular Hemoglobin Concent 32.3 32.0-36.0 (test code = 786-4) [facility] HealthAutomated erythrocyte distribution width [id number] 12:05:00 Test Item Value Reference Range Interpretation Comments Red Cell Distribution Width (test code 14.5 12.0-15.0 = 788-0) [facility] HealthAutomated blood platelet count (count/volume)2022-06-04 12:05:00 Test Item Value Reference Range Interpretation Comments Platelet Count (test code = 777-3) 249 140-450 [facility] HealthAutomated blood neutrophil count as percentage of total [id number] 12:05:00 Test Item Value Reference Range Interpretation Comments Neutrophils (%) (Auto) (test code = 50.3 34.0-71.1 770-8) [facility] HealthAutomated blood immature granulocyte count as percentage of total [id number] 12:05:00 Test Item Value Reference Range Interpretation Comments Immature Granulocyte % (Auto) (test 0.1 0.0-0.4 code = 06543-6) [facility] HealthAutomated blood lymphocyte count as percentage of total [id number] 12:05:00 Test Item Value Reference Range Interpretation Comments Lymphocytes (%) (Auto) (test code = 40.5 21.8-51.7 736-9) [facility] HealthAutomated blood monocyte count as percentage of total leukocytes 2022-06-04 12:05:00 Test Item Value Reference Range Interpretation Comments Monocytes (%) (Auto) (test code = 7.2 2.0-12.0 5905-5) [facility] HealthAutomated blood eosinophil count as percentage of total [id number] 12:05:00 Test Item Value Reference Range Interpretation Comments Eosinophils (%) (Auto) (test code = 1.4 0.0-8.0 713-8) [facility] HealthAutomated blood basophil count as percentage of total leukocytes 2022-06-04 12:05:00 Test Item Value Reference Range Interpretation Comments Basophils (%) (Auto) (test code = 0.5 0.0-2.0 706-2) [facility] HealthAutomated blood neutrophil count (number/volume)2022-06-04 12:05:00 Test Item Value Reference Range Interpretation Comments Neutrophils # (Auto) (test code = 4.24 1.80-7.70 751-8) [facility] HealthAutomated blood immature granulocyte count as percentage of total [id number] 12:05:00 Test Item Value Reference Range Interpretation Comments Immature Granulocyte # (Auto) (test 0.01 0.00-0.03 code = 57104-6) [facility] HealthAutomated blood lymphocyte count (number/volume)2022-06-04 12:05:00 Test Item Value Reference Range Interpretation Comments Lymphocytes # (Auto) (test code = 3.41 1.00-4.00 731-0) [facility] HealthBlood monocytes automated count (number/volume)2022-06-04 12:05:00 Test Item Value Reference Range Interpretation Comments Monocytes # (Auto) (test code = 742-7) 0.61 0.10-1.20 [facility] HealthAutomated blood eosinophil [id number] 12:05:00 Test Item Value Reference Range Interpretation Comments Eosinophils # (Auto) (test code = 0.12 0.00-0.80 711-2) [facility] HealthAutomated blood basophil count (number/volume)2022-06-04 12:05:00 Test Item Value Reference Range Interpretation Comments Basophils # (Auto) (test code = 704-7) 0.04 0.00-0.20 [facility]Urine color aqolrqnbztjrf8823-47-59 12:05:00 Test Item Value Reference Range Interpretation Comments Urine Color (test code = 5778-6) Yellow Yellow/Strw [facility]rine appearance dvifhxrxkpbte5207-77-19 12:05:00 Test Item Value Reference Range Interpretation Comments Urine Appearance (test code = 5767-9) Clear Clear [facility] pH measurement by test thbjp2133-38-69 12:05:00 Test Item Value Reference Range Interpretation Comments Urine pH (test code = 5803-2) 6.5 5.0-8.0 [facility]Automated urine specific gravity by bxwodjrlepxou2274-61-79 12:05:00 Test Item Value Reference Range Interpretation Comments Urine Specific [place] (test code = 1.020 1.005-1.030 54030-0) [facility]rine protein measurement by automated test strip (mass/volume) 2022-06-04 12:05:00 Test Item Value Reference Range Interpretation Comments Urine Protein (test code = 78144-2) Negative Negative [facility] glucose measurement by automated test strip (mass/volume) 2022-06-04 12:05:00 Test Item Value Reference Range Interpretation Comments Urine Glucose (UA) (test code = Negative Negative 25073-0) [facility]rine ketones detection by automated test sbyuj6959-10-89 12:05:00 Test Item Value Reference Range Interpretation Comments Urine Ketones (test code = 21528-4) Negative Negative [facility] erythrocytes count by automated test strip (number/volume) 2022-06-04 12:05:00 Test Item Value Reference Range Interpretation Comments Urine Occult Blood (test code = Negative Negative 78173-0) [facility] HealthNitrite Ur Ql Strip.ejqu6067-80-60 12:05:00 Test Item Value Reference Range Interpretation Comments Urine Nitrite (test code = 99699-5) Negative Negative [facility] total bilirubin detection by automated test [id number] 12:05:00 Test Item Value Reference Range Interpretation Comments Urine Bilirubin (test code = Negative Negative 22816-5) [facility]rine urobilinogen measurement by automated test strip (mass/volume)2022-06-04 12:05:00 Test Item Value Reference Range Interpretation Comments Urine Urobilinogen (test code = 0.2 Negative 35065-3) [facility] leukocyte esterase detection by automated test strip 2022-06-04 12:05:00 Test Item Value Reference Range Interpretation Comments Urine Leukocyte Esterase (test code Negative Negative = 62406-4) [facility] sediment erythrocyte count by microscopy (number/high power field)2022-06-04 12:05:00 Test Item Value Reference Range Interpretation Comments Urine RBC (test code = 99716-0) 0-4 0-4 [facility]rine sediment leukocyte count by microscopy (number/high power field)2022-06-04 12:05:00 Test Item Value Reference Range Interpretation Comments Urine WBC (test code = 5821-4) 0-4 0-4 [facility]rine sediment mucus count by microscopy (number/low power field) 2022-06-04 12:05:00 Test Item Value Reference Range Interpretation Comments Urine Mucus (test code = 83349-8) 1+ None Seen [facility] C[facility] 03 [id number]-Psp1211-87-20 12:05:00 Test Item Value Reference Range Interpretation Comments Urine Culture Indicated (test Not Indicated code = 8264-4) [facility] HealthSerum, plasma, or whole blood sodium measurement (moles/volume) 2022-06-04 12:05:00 Test Item Value Reference Range Interpretation Comments Sodium Level (test code = 26766-4) 145 136-145 [facility]Serum or plasma potassium measurement (moles/volume)2022-06-04 12:05:00 Test Item Value Reference Range Interpretation Comments Potassium Level (test code = 2823-3) 3.6 3.5-5.0 [facility]Serum or plasma chloride measurement (moles/volume)2022-06-04 12:05:00 Test Item Value Reference Range Interpretation Comments Chloride Level (test code = 2075-0) 107 98-107 [facility] HealthSerum carbon dioxide cphyvwxipfp6885-34-02 12:05:00 Test Item Value Reference Range Interpretation Comments Carbon Dioxide Level (test code = 32 24-31 2028-07) [facility]Serum or plasma anion gap determination (moles/volume)2022-06-04 12:05:00 Test Item Value Reference Range Interpretation Comments Anion Gap (test code = 22818-4) 6 7-14 [facility]um or plasma urea nitrogen measurement (mass/volume)2022-06-04 12:05:00 Test Item Value Reference Range Interpretation Comments Blood Urea Nitrogen (test code = 06-06 3094-0) [facility]um or plasma creatinine measurement (mass/volume)2022-06-04 12:05:00 Test Item Value Reference Range Interpretation Comments Creatinine (test code = 2160-0) 0.83 0.60-1.00 [facility] HealthGFR estimate [id number] 12:05:00 Test Item Value Reference Range Interpretation Comments Estimat Glomerular Filtration Rate > 60 >60 (test code = 165563679) [facility]Serum or plasma urea nitrogen/creatinine mass jsyxh9452-33-04 12:05:00 Test Item Value Reference Range Interpretation Comments BUN/Creatinine Ratio (test code = 11-04 3097-3) [facility]um or plasma glucose measurement (mass/volume)2022-06-04 12:05:00 Test Item Value Reference Range Interpretation Comments Glucose Level (test code = 2345-7) 84 74-106 [facility]Serum or plasma calcium measurement (mass/volume)2022-06-04 12:05:00 Test Item Value Reference Range Interpretation Comments Calcium Level (test code = 46748-0) 9.0 8.5-10.1 [facility]Serum or plasma magnesium measurement (mass/volume)2022-06-04 12:05:00 Test Item Value Reference Range Interpretation Comments Magnesium Level (test code = 33654-5) 1.5 1.8-2.4 [facility]Serum or plasma total bilirubin measurement (mass/volume) 2022-06-04 12:05:00 Test Item Value Reference Range Interpretation Comments Total Bilirubin (test code = 1975-2) 0.40 0.20-1.00 [facility] HealthSerum or plasma aspartate aminotransferase measurement (enzymatic activity/volume)2022-06-04 12:05:00 Test Item Value Reference Range Interpretation Comments Aspartate Amino Transf (AST/SGOT) (test code = 1920-8) [facility] HealthSerum or plasma alanine aminotransferase measurement (enzymatic activity/volume)2022-06-04 12:05:00 Test Item Value Reference Range Interpretation Comments Alanine Aminotransferase (ALT/SGPT) (test code = 1742-6) [facility]Serum or plasma protein measurement (mass/volume)2022-06-04 12:05:00 Test Item Value Reference Range Interpretation Comments Total Protein (test code = 2885-2) 6.3 6.4-8.3 [facility]Serum or plasma albumin measurement (mass/volume)2022-06-04 12:05:00 Test Item Value Reference Range Interpretation Comments Albumin (test code = 1751-7) 2.7 3.4-5.0 [facility] HealthSerum or plasma alkaline phosphatase measurement (enzymatic activity/volume)2022-06-04 12:05:00 Test Item Value Reference Range Interpretation Comments Alkaline Phosphatase (test code = 97 46-116 6768-6) [facility] HealthSerum or plasma lipase measurement (enzymatic activity/volume) 2022-06-04 12:05:00 Test Item Value Reference Range Interpretation Comments Lipase (test code = 3040-3) 25 42-393 [facility] HealthAutomated blood leukocyte count (number/volume)2022-06-04 12:05:00 Test Item Value Reference Range Interpretation Comments White Blood Count (test code = 6690-2) 8.4 4.0-10.0 [facility] Wdec4928-29-64 16:14:22 Test Item Value Reference Range Interpretation Comments Case Report (test code Surgical Pathology = 104) Report Case: [id number] Authorizing Provider: Lacey Stock MD Collected: 01/01/2022 11:43 AM Ordering Location: [facility] Received: 01/02/2022 02:13 PM SERVICES Pathologist: Macie Harris MD Specimen: Soft Tissue, Other, Fundus, stomach DIAGNOSIS (test code = r5wbgGMsFTMsb9brSYPgtJJ 3220) uZzEwMzNcZnRuYmpcdWMxIH tccnRmMVxlcGljOTYwMVxhb dFrAJDfhLQcW2ZvaiabBJoy BK8tFU1vvJuisENedSMfVVN bJzPoe9grc279cKVjy0lbJO UFlrqvpBj2nPvqH38vy5R8J djpC6fvOMWtGJxtAGYgCLyp bZArLZt8YTMpkQLctoRcMaR dPOSzhQUkoBC4KYJePY6jsw yhQMdpWSvfXBWudgF6RQKyo WFdZ8OhLWVeEV5igdzyYLJ2 EClsJEMvVGH7IhKnMHUzs5U awhq9TjHdeLWbVWunkMLzqf ntkcEpMVZbZUnqBpVuK2OJI UFDSCwgXGNmMCBQQVJUSUFM UOpFO2YELFAQK00UPBMnCMG 3YQNpegzePcItIK1uBQ3SMG 3ZWCIhUIBWH3RAQJmNKAvpV GNmMSBDSFJPTklDIElOQUNU HPOIWGuWK6JEERUKF7veNGS wU2BsYQOzD9VzFI2hG5ReKS CjR6OqWWSKECrHJCgYRHESS 1IgSEVMSUNPQkFDVEVSIFBZ CM7KVKJYEvrKOsvUOJSpRUG qICVxDHFcOAVQYMUiW7UoIA ouAZVOUUGZHA7AKKzDEojya ZZtCPJgS3OlXC8tD4PnJWSh A1JjTVKTTZsIFLkWBPGNV1X mNL4WEMWDVO0JPQZNBQFHHH iPH1nBPEOWSDJVSTSEEUThT N3AQOjAKeYXX3cbgAGbLUAf okDfV1DbPMBchd70QBJ8PtQ ef9U8QXX8GANwQHSqd8yvKQ VmbGFuZzEwMzNcZnRuYmpcd EYlSVBoJrNwy3eqj974aMYb j4gkDQRkVbG5tPLhZCNnwKW tK623FXShSKxdw5ofa5VsRA TvaGIlg7X0IRXWnaqnhTc1x BfxB89kp1Q3ZkzwG0syJCVh RRHwJ4DfLJ6fPHMxAus8GSS 5HCK0BSInVBGdJ8AwSQ3qDK UptNSiFVx4i5rjbKzyKNZgA BU7i0igZIfvjrFwOY9knq7j eIf0r7qjiwUtPMRaABBywYE HHIKcJ2CbaVfwAh9okLl1mC lmXhsxLKC2Stw0SK5uoq75a gq9nBzxVCSeeygwDbK9CLir KQJzdeliVLt5TXfxOOAgvWV 6LWVpeDHfR1VhVJBuJN9pqb n2PRY0TIrrZJUbWyC0SCWof PTvUAMtvZbvYChqv985QGB0 IqIyYI1uW9Ndz3P3pU3vyXQ oKQMklNPzFrPsVIKnss1nwA BxGEcwq8IoHDI2vmP6iMZkp XRwIAKwOeB8UAvuIQ3mja71 EONcQMF4ft9bqPIklTvwneZ yaHQpBSrvF6UuBUEpu889YQ BgL6WnHHLbg3D6ssCvCeWiB CYcrNJ2vxF0ZYUkDK3zbkke g3tqUMskAEgjHWUesoS4vxJ 2KMXqtGAlE8YgiX7zWVOnLA 6vmkwdb2jdXNZ7IXkmUCTpF DI5AjTlHUUiu4Dlkft0XhTr n9McyZWqYUdnN47hv082VGI lksKsV2nnqZAtfunueOJawr ntBByyedQ9BTObHGseybrzI AIaXYdhC2dtPzZaDOFyiWcg WFeoy1DuECDaSOUoFrBzeEH wELFvRql2LKRzbGVuWEJbFp YkL3uktebuWfOJSVObs3apR 5svoLZCwLNzF1BbLNfjvpKb AYtlKOjiVOGjXXP8WZ9sAMM eSBZwof10 CPT Code(s) (test code j4psfMLtCCWcaIV9YdUfNKM = 3357) uq6fhr8OwnWXxrYSaOAwnkM ZzalKnyz80eFU3fD48TF3pU YLqHjF3QLNpmjY1Lzl9ZXRl LSSomJYdF836p3ebh1vufiV xfOP8gLrcGWOsvdiyXdI2WZ zoRTOimuvrVSo3LLmxGDNbh PS5CUMxnYDoE2UmOVFlJY8z pqt9WAP7LKyqBUSnMnJ9FRA jhSCpNHHpoYeiSUrwx645FB X9IiZfYVWghzLqhWuchH1uD gRwUDI9HJRqA6lgPXM0 CLINICAL HISTORY (test z9qamRWnIXJnhXI3LkHhYPS code = 3356) zj9pph9EfkHOgzIMgFStxhJ VnjcLeuf41lZE1nZ74LC7mM IZjIyR8JBFfscZ4Jpv5FGQk LSRtvOAzE933n4kcd8rkrxM quAV2tYifSJBvjhubGrZ8DC tkRFMeggibWWz4NSdkQETot EB8DMHefQAbS6LfSCCuTJ4p jzm7UIE1EHeoIETaHzY2YTD zxAYiKQJljHtiTBxpt229YF F2FgRiZYUxqfVckPjipZ8pO lMcCMPCZLI7mg7kw40hsKEf NIKfCTIiAky0vGGktXTwURA lIHdpdGhvdXQgZXNvcGhhZ2 b5oJTkvBDleS== SPECIMEN SOURCE (test m9ggdAZmGDRjvGK0ZnVqDCY code = 3377) yk0loc6YjtPOvfHTvOAizjE PasvLmhy93lOJ0sB14RY4qA ANfPfF2FCRnmqV7Hak4EORl PYTdeGHyY243h0zxk3vnjyF yxLW5kKyfTMAasixwHhY5JA rmGSZcgbzpHVf8OMtfRDHik WH7MDFsbOVaC4KqTLKsGP9u alw9HAY2UQtwZVRhFeO5FNX vfSWrAKGxkSeeNCtou256SO E8QjOvCZLxmhAjmEtuwV0rY hBrRILAu4D3JTVhl2E9VJcr d3BrYRXrrZSiqW== GROSS DESCRIPTION w7lkdJAqNYIyoFIhFjLeCAC (test code = 3366) uEQGla3tqKKDcmRWgGuYoAr NcZnRuYmpcdWMxXGRlZmYwe 4phz012wUYov3evOBMhTlA2 oFCeJNBahTPtW951JWRkPSe xy5jwc0TfWKGueDXed4J2AI CEuflblUj4pLjyY96np7Z7R dpeJ7msMEUpQLOsJ4CnVO6y UPAeRob9NTS0RUH6OPYbWAQ zL9CiYQ6zYCMykVCqYKl5r1 bgcXimHYYdQLP4d4blLTjoo nNsSW6qxn4gyWu9m0gmdlQu TINtFKRyyPECLYPmJ8CgwVs xMq9fcMr3xOqkBkimYJF2Id d0KC7klu46zbf0mRzvDJOxv yzsYuT4BArwYBPyodrpNWq0 MFxtYXJnbDcyMFxtYXJncjc yMFxtYXJndDcyMFxtYXJnYj mwTGheYDKbUIT1UApoh033O QM3XVcfv5llm3mqjLJyWen9 UGAaEqRtIvgzEImgx2Rjs2y bRMXcpa5jVOR3gPLmgPqce0 O4lSRbNOVdkRKrchLyNSDcQ mZ5KRztGF9wup50CJOqBHV4 eb1laWOlpDakxkPivHZgHDz fD6QyPRAro401QSRaN9DcJF Xfd0H2nsHuOeUeWJHfqMX7o oS6NJLvPFr1kPXhfpF0kwQp dTNqV0gopW07WwPdrIIyF2L wsT87CiRemRKlH1YeiW29Ll QphPCgG3GpkQ27BiZdaIJsZ AEbyZNrKb3zrSWinEWzo2Sk iUEjXBpmG35ys072KUEbnxN eP4vqeOZlshuuvMLdkxwsJF wqcpV7OJHuEVSzWZlkTVTtY GZzMjBcbGFuZzEwMzNcaGlj bSruKUroQjEoBAAtCSsnF5d cZjFcZnMyMCBBLiAgUmVjZW m8XPVlGsChg7jzgMOiFDvnH QO5vQMdvUQ9wUIggFsmHJ7r kETnEB2oTFncRTmgxwOqw7J yKV37dQHmrkvqVG1jPSTco9 ucbzV2HWEtYkO2mpF2fzmad 4FfjVCzmAIidXJsGDPxKO8c UDikFC6bRLjgQw8tGNZtJBV dw8HnBN33DOKhsAOexMiotQ PeYJS8emMpkX6ncM2tGLHzT SMhdZOfbC6ipgKlj841AOip hyBpVFGvFhykO73cv4EqfJg bCPizppXze8u5kWKcT5VreQ SmjV98kcJnKS7aAJQ0oKZnb KNgMGHclFTkk1HylDwvf2Gv LlxwYXJccGFyIFRoZSBzdXJ pCNGhYVmzUMHrml1skD9nXA NzdU2wwOvtLV2eRUoryQD2Q P6vtpnrCZVFuBVib3FsW1xg SY4ajZIhn1PmleDoWMVsEDB suwQbbPJncZQobcS0NLFlsn mvIln7fXQhXD7dKNUtIGqqN EQ3XUDbn6FtsGXalCCvl795 PI62pn6zEGPvFKChtZWgn9H pyXMptMJiUQXibdmiOJ1yGG Nuv2JmBWgzRDViXt0wKBnaF QFsTULrUaSleUH7wRIxsH1h LiAgVGhlIHJlbWFpbmluZyB ikIZjj5GdBYkqiLkmyXYkdn 9ybWFsIGZvbGRpbmcuICBUa FGia1YxnCFytHT4REibFWav ZIFvPPSlnZKyjkX5xNftf88 oc6GxAIFCrhLasG4qxTSjj1 RlcyBhcmUgaWRlbnRpZmllZ T0tZR6zENhqn9MvATelk6fe wuNpBGVbNHutFP48dHGfAQX sAQTXDPPnJMXggrYegId0UB JwFGM3zX8acnJirgAdq7Orm Hf4uFPqNJNpWCRmpWknh1E1 DPHyichoJBReG3SnkLadvtF zv2JnVaxySVBvJCX1RKQ9IX MjKPMisO8iPU1cyqknzenkS H9pKwSbXQagRCTbUDPhtSow tH4oIxDcRrRmHZevLV4bMEU fL1kpeNSbULCyKYBfO4rzPz EirE4xzRtkFTiwdwDjQYD8R fMzZRmrKGAjuYmsfR2tNbGa HrFaTIhfYG4qLEJwY5grzFR mOVDzLBScV1ilHuPzyN4zxE xeLEetgeAxOUW7ClYXpnRcJ I8sXUJyMPJqpXSud2AtSIFa ciBBNVxwbGFpblxmMVxmczI qTOyjjohtAAMiNCyaH0ykTr GzEMMhaZmbOSedf6ZhQUCuR EZsGwPlqXqvPZBdWJb9Uxuw bGFpblxmMVxmczIwXGxhbmc kULFjNHmdK5kdGoOoYVSxfP sqZRrbf4ZqNEElLQGcGzQmT MWoBRfkPpUgcxLhDY27HTPy ooAtyKAdp8XeVCCnkxpeDAO zX2rnrPiauZVUFWZrkLKsgn xaZGFdi7C9QLXedIueBTK1 MICROSCOPIC w4hbeBUgSJRbvIP0LyZlJKB DESCRIPTION (test code vx4qxl4KbsGWmlGVuZLbahC = 3371) FwoqLpaa31pGD5zO11VL3eF PVwGaW4EKNqvpB6Fxn8MQAq YXLhaXPlP973g2swj9xwzpT tsNR9eZhkFBVqdsuhFlY3BW ciTJHdglixIFo7SVfpXSTrl JG3VMYcbSAjP7HuJTDqNI7v oal3WCJ3OPilPGSeToX2FKV xwLWcAUSdpYdgIObwl628XD Y0HfOiPTHcdvGxlCnjdG1xM aXkJHASAIYjn5XhOZLsBOEr clxwYXJkXHBhcn0= [facility] [id number] 16:14:22 Test Item Value Reference Range Interpretation Comments Case Report (test code Surgical Pathology = 104) Report Case: [id number] Authorizing Provider: Lacey Stock MD Collected: 01/01/2022 11:43 AM Ordering Location: [facility] Received: 01/02/2022 02:13 PM SERVICES Pathologist: Macie Harris MD Specimen: Soft Tissue, Other, Fundus, stomach DIAGNOSIS (test code = q2hsdPOkERYim2mpEPWfoCF 3220) uZzEwMzNcZnRuYmpcdWMxIH tccnRmMVxlcGljOTYwMVxhb wZyCJCliAFnS1HyuwhxDOjt FI5wYW6gwTqubLVdeBAnUIG eEfWuo4tdv835mLZtt6ugLB DNobueeRg1kYkvS77ku0C3Q hzzN4ccEGFdDLsrICLiGZgr lVJoVRy6DAGstRJxmaUmZfA pKIPvnMMqjPN9EBIsMP8qiw jmLQygLKlwFDKweiM4AQKnh CUuZ3ZqXWArXX8ixjhdWBN3 YQedDAHdTJJ8KrQoYVKmv0K gzus6YvYjpFYdPJiatOEgzu woizAbVCJzMXseAjJsF5VKF UFDSCwgXGNmMCBQQVJUSUFM RBpMB1QQFPXWH53GEBKaLHV 7MBEgxjomGkQnEM0gUB0VUQ 8CEGPtEGEZF4NGRTeRIHutV GNmMSBDSFJPTklDIElOQUNU DNTRCVcAJ0BLTECTP4hbZJK rM0VlGJNyQ4BmGK1dS4GkDH MyR7UpVWIFRJbCCRwCCSQXX 1IgSEVMSUNPQkFDVEVSIFBZ GG5RVUGNNkiHIojCHOBpCNS uCTIpWCEqTOHYDZHgA3OqAL oqZLARKSDGFS4RAZzXRzyus TLmNUCbN9XzXE9qU0MbAULj Q6LkZSUIQCpACHxYNCVWT5P lZH0AAHKUGU8YJTMJSZESTG eTA1dXERDAURJBLEORXZSkC T9WRPoYCcJKH8fgwGQeCCHa ffFrD3YgSHMsau16GOK3ErX xe4O6HTH5VNHgAZVjp6amXF VmbGFuZzEwMzNcZnRuYmpcd CLoLKCmCwOps6hpi358fMZo k7fmJVDhSgK6iOOxNQAlhYW xX570SKYfOHbmm0zzm3ZuPF OnfKHfn5R5OEPDvclsdWm1x OqqC10or0O3RwqyV1egPMKr QNNmZ4FuDK5rTKBgCon8WDE 9GNS7HPClIMXmF5QjOT4zKU HurBBzISu8r4ucgJkkCISoM CV2w9spUZdrtvWcII6joe1q kMy3x1lefbBxAYLoOXTtzJM HAUNyJ3XbdCbzDo3heFs8iO erFgpmDZL6Jsn1ZW9zzq79k yo0xUqmKRFpynduDhU2HUcp YBVbfqveQFz7UFhnOYIrnLF 0FKShjBMuE8BuKNJgFV2lym t8NHG8OIdsCKBhOmQ8EGIcn POuNWZofRlrMAhhn891VVB5 HhKwPO3lP9Vbr8D9nW7spVN sITLobSZcUmWfHRDupt1iuY KqSCsok3VkLIX7jmR2lWRmd HNbZNNtLzE0SZbuZX1fpg29 YQWzZDS3dx9ouURqxAafghT gjGJaGJabO5UjQABai774XL SwB0JiKRYle4X9nsVjXxLlM WBpgXN7zgE8NMKuOA6dyvvl d1pgPRzwERtjBYJtpgX5unI 7ELCthKCnF7EplU6uKUGgKV 3usaztd9voXMR0FNhfOCEeE EA5VvVuKGMda3Nrwcs1SdGm l6ZwmQAcEGhdU63el755GIE pdoLdQ3gnyNEzkfvxrPCjqq pyWOamqkH1XCByTRuecrzqB FWpMPrpB2jlBoFxVVVylPul GMprg1SrCNYaOJGaVfEwlAO lODKaHpz9MEOrjKQfZTZcXv UqH9rqbhhiTzPBBGKnl6hoV 6sxaSRRkCXyR7HsWDdrapPt KNvoNIebIAUaSSF8EN3iCGG uMGDjvv65 CPT Code(s) (test code o2psiRQcIBSgnOD9GsMrBPN = 3357) xi9hcm0GhgGIufEGkRCyxcN HsrsZmvc18lQN5sJ76FM9vI JHrTdF4LJGplzY9Fij8TXTz UBSbzPWxF944b9zdj5fuccN fnEW4vKfvZZLioukiFkL0IJ npSGQapqaxKUc5MCpoZPDjq KI8TREadXWmQ3CeKURnTL9j sww6DGT2QOssLPKoOzY9BXJ coZImYKUqwUinJEyae705FK R5NrBcNTXsciCwhVrisP6wP oCxDDK7UTPbO3xbFUM4 CLINICAL HISTORY (test w8judLHjAMPmiPO8PnMcEEB code = 3356) vs4vrs4LaoVEbrMGgYZlbwV TjezFkpq96pJJ6kE23IV3pB IQzQfV7ODKhikJ7Swt2YWIe YMGoqXXlS911p6qdc9eahxL vlWA3pQxzWFUowqevRhQ9ML rsZUAxkmsxVHb4LFgoZZNqg JK2DTLgdVSwZ1YgIERaUL0w dey8WQJ0DUtbKVGaCeT2EJT yhBWfMKHeqKmuVTdhf379NJ W2CpYoXOXmddLbbKzxgS0qK zUbDHFGEZN3fa4ho23eqJGp QVViRARpNoo5tNSyuPEwQYT lIHdpdGhvdXQgZXNvcGhhZ2 p2cVTlkZLrtT== SPECIMEN SOURCE (test j0tcyXXrQQTemWK9KeGeYKJ code = 3377) uy7fzs4XjvVCotCGfJObzpY OrrlXpkr89qNF5uN43SC6gI ZXyTmR8IHKdveI5Vic9OMYe IRUegCWiS496m6bad7qjlmY yzPS6bWgyHAXnzkwcQdZ5MP jlRIKawlhlOXr5UEvhYNOdq MJ9CZPdvNZdL2YuCMDoBV8z lmn8KIX1RMalVNPdFoC6LDE jyODsHYGgdZnmGNatm256GB F6LsLpKDSmboIalRtaeU1uQ wFuIZHTb4C5GEUxf1G7EElq r8ZvLJVbwRGxgM== GROSS DESCRIPTION f5qfrDLmVVPsoPQxTqRtUZM (test code = 3366) mSWUnc1ozQXHwrLHgVuBvJc NcZnRuYmpcdWMxXGRlZmYwe 2sup929uWJsl5tyJUSnAgT3 fSJnZRQbbOQtW797XSHhIEh fp8tce6GfDHBwjGOts3H2AQ ILqbhawDq8yQkvV85nx6R1Q jnyV9nnBQGcATAbV5SyGB4j GJCjDoq4QKV5FHQ9ZKQhHFU fX8MoIC9zFXXtqGQqXMu6e8 tbkRxuRATsIBC5w0ehSZodu pFpQH6kdd2snUz8v6vzniSf KADjLIVywINFOJPiF7CdiSl nEo8beBv2cGhaQlijECQ4Nu u3OC9cum92zcy9hBieLKAxk jzjBqD1NPswOUPhxpduFKj6 MFxtYXJnbDcyMFxtYXJncjc yMFxtYXJndDcyMFxtYXJnYj uwWXrnGADiLET5MVkkr496W JC9AIwar7ifp2kdmAZuPyh1 TWBoOnYeSdssYOlxu9Hxg2s tBBRwnf8wGXO4lNTfeAtsg6 S1aBXsVBBgiWCjrvVxOMRvE eL4ASyoUE9mad85VYGyBHH7 nz6wzUCxaYhyvjKleMFrSDv vP6StZBLac985ECXqM0VeRC Yxc4S1loKcAxTtLDMwjGK2k yD6ZPVeXRw4dITiujD2pvFw cPAoD1euxP05QtErdJAjI5H znL79IlGcrBIhU1BmsA09Uc SggYYuZ0OegF20LgQaoZPgA OYwwSBsKg2yhNVtwMPsx5Bw iMQtOYybJ12jl705MIUprlL jZ9pmoKFamthjjGUggkacML icweS7EDPgCGFnMMgmYOApP GZzMjBcbGFuZzEwMzNcaGlj vQomJJegUpOxJSLdDDnnX7e cZjFcZnMyMCBBLiAgUmVjZW n6PONrDaZtw0ukzLBgLAfoB HF6vJSskWO6hTUhvJjuBX8a oOMbNT9nSRgoDBjbijBth7C fBT89wFKkazjkHX1mGMBuh6 ioniK2IVIvOtC6gxQ3zrmeb 3QxaRJnxYHorDNiKGYfHQ4r WHhaSB4dUQgpSr5dCQTkUBI zo0CwDF79SVRtcRVjsUsgpU ItHWP5hfKqdW0uaA9gLMDtQ DCdkEMjaP7gwcZfv325RVqf dvBwOSRtOfbiT17ja2BacUn aMZifzyGpg6j4aEPqT3OdtH UqhV94qlRzXC5lIPL8hWWfw EYvIWNuzFRkf1GveQqsj8Ve LlxwYXJccGFyIFRoZSBzdXJ rRYDjGIjaLUFilu3bgQ4mUP XulQ2ihYakHQ0xJXctqDU9N E8ostouZDYDyTMap7GfS4au RM1kaZJwt7MuopMzNVTlSAJ cvyTfwHPemLYoltX9DNTang ojKde4lVUhTT7zMCLcZOcuA OO1EGDht1ZghGJjkRYlx302 LR98az8tILMdJNOwaEXdn1B sjXWukANfXRMxgdliJL2xGO Eqd6VvBIysJKOcIg9eGYjuW IFmPRJlKwUxiCL4bTOltV2w LiAgVGhlIHJlbWFpbmluZyB xeLNxr6KyOXakrLmyeUQicg 9ybWFsIGZvbGRpbmcuICBUa ENwd1HwgPFcdUX0TRhkLIpp KOUuGNPlaKYhkcY8nBdyn42 vf3UxVOCAxqCzdQ3yiLUpz1 RlcyBhcmUgaWRlbnRpZmllZ A6vPI9mTAdyu5MlSBksb9wk pyPtORWnWAcvOH37tJRhVZC wDZIYFOKcCISntcCrhOd9RW ZqGIH8tH3hngWjnmNwn5Vwj Pf4bLFiMHJrVPWwcYkjw1F7 JAUhvaquGNUhK0CdsVvcuqS eb2YiOfxvJGQnEMC2DUR2VT HiQHYarV9iMB1jmrjdwoqxS T5zDrHpUMtlAJGiJUUadDta cX8bXrUbThZiKJstOP4sGOK gW4fysQAtBPVoPJQbP6vbIu IrfZ9dmOszOPuiewAqLYD8N aTmYZsqPNOpdZxxwL8jEkBk WfFrGBxdEC2nNGXvT7nuoGK pFMMdFLSvG7tkCjLpsT7ddJ esVXpoogKpVRF1OcXWvgBdY O8zNTEnVPAocCRjj3IrLYGo ciBBNVxwbGFpblxmMVxmczI zTLdcbhidIZMtMQcnU6dkMr FpFZOftXanVGcwh9DkZPJyN VQtZeDldYctVOLlVLn1Ifmk bGFpblxmMVxmczIwXGxhbmc kQHLyFYoyX4pbAqWxQOChwG dgDNkvi5OpJKPgXMWdJfCuN OKjQRsxIsIywfJmJS32TFBz ylIakWHzy3BaADAruridWPC fM6ewgQfkvAYJQYTvbSSzfm rsHUSrl4W6HGBrxPzxRFH8 MICROSCOPIC l4kqiBKiWVNgrNA2ZyPhGQN DESCRIPTION (test code [id number] = 3371) EzyjUjrl46vEL1bY29OH7oI BYpRxP7HMDtjkB9Xcz2CSHc ONNouWYcB956r7lta6otyaW qwOH8pHqxEFSbcuujTwF5DZ unSZMunatgDAt4BOybHLYzv EM5FXMrhSElF0ElSIOrWM2a eet8PBC8FHetBDRkCzV1XRS gdRZpKOPkwZvaKFkyb154TL C8QhPjSROmsxXtfVbxtX0sB qIoKEKYTEMwe7QcRKIgXXKs clxwYXJkXHBhcn0= [id number] 16:14:22Surgical Pathology Report Case: [id number] Authorizing Provider: Lacey Stock MD Collected: 01/01/2022 11:43 AM Ordering Location: [facility] Received: 01/02/2022 02:13 PM SERVICES Pathologist: Macie Harris MD Specimen: Soft Tissue, Other, Fundus, stomach A. STOMACH, PARTIAL GASTRECTOMY: - OXYNTIC MUCOSA WITH CHRONIC INACTIVE GASTRITIS - NEGATIVE FOR HELICOBACTER PYLORI ORGANISMS (BY H&E EXAMINATION) - NEGATIVE FOR INTESTINAL METAPLASIA, DYSPLASIA, MALIGNANCY Signing Pathologist Direct Phone Line: [phone] signed by Macie Harris MD on 01/06/2022 at 4:14 [id number] reflux disease without esophagitisSoft tissue, otherA. Received fresh labeled the patient's name, medical record number, and designated "fundus, stomach" is a 14.1 x 4.0 x 2.3 cm unoriented partial gastrectomy. The specimen contains a 13.7 cm staple line with scant amounts of attached adipose tissue.The surface is morel- pink, smooth and glistening. The specimen is opened to reveal clear watery fluid and undigested stomach contents. The mucosa is morel-pink and displays a focal area of flattening. The remaining mucosa displays normal folding. The stomach wall is 0.4 cm in thickness. No lymph nodes are identified. No gross lesions are identified. Tank Cleaning Supervisor sectionsare submitted as follows:Section code:A1: Staple line margin, en faceA2-A4: Area of flat mucosaA5-A 10: Tank Cleaning Supervisor mucosaKHRIS Guthrie studentPerformed.POC-Glucose [id number] 06:39:19 Test Item Value Reference Range Interpretation Comments POC-Glucose Meter (test 108 mg/dL 70-110 : TE STED AT [facility] code = 1538) [address] [facility], [facility] 30: Artist'S Manager/Techni nadege ID = [id number] for Santana Lester Lab Interpretation (test Normal code = 53004-5) [facility] [id number] 06:39:19 Test Item Value Reference Range Interpretation Comments POC-Glucose Meter (test 108 mg/dL 70-110 : TE STED AT [facility] code = 1538) [address] [facility], 770 30: Artist'S Manager/Techni nadege ID = [id number] for Trevon, Santana Lab Interpretation (test Normal code = 19995-4) [facility] [id number] 06:39:19 Test Item Value Reference Range Interpretation Comments POC-GLUCOSE METER 108 mg/dL 70-110 : TESTED A T [facility] 6720 (BEAKER) (test code = [facility], 1538) 20127: Artist'S Manager/Techni nadege ID = [id number] for No rman, Santana POCT-GLUCOSE [id number] 22:50:05 Test Item Value Reference Range Interpretation Comments POC-GLUCOSE METER 119 mg/dL 70-110 H : [facility] (test code = [facility], 1538) 23515: Artist'S Manager/Techni nadege ID = [id number] for No rman, Santana POCT-GLUCOSE [id number] 17:23:28 Test Item Value Reference Range Interpretation Comments POC-GLUCOSE METER 121 mg/dL 70-110 H : TESTED A T [facility] [address] (BEAKER) (test code = [facility], 1538) 39117: Artist'S Manager/Techni nadege ID = [id number] for Wi marialuisa, Jaclyna POCT-GLUCOSE [id number] 10:19:32 Test Item Value Reference Range Interpretation Comments POC-GLUCOSE METER 125 mg/dL 70-110 H : [facility] (test code = [facility], 1538) 26653: Artist'S Manager/Techni nadege ID = [id number] for Ib amy, Fede POCT-GLUCOSE [id number] 06:07:58 Test Item Value Reference Range Interpretation Comments POC-GLUCOSE METER 132 mg/dL 70-110 H : TESTED A T [facility] [address] (BEAKER) (test code = [facility], 1538) 71636: Artist'S Manager/Techni nadege ID = [id number] for No rman, Santana POCT-GLUCOSE [id number] 23:35:12 Test Item Value Reference Range Interpretation Comments POC-GLUCOSE METER 136 mg/dL 70-110 H : TESTED A T [facility] 6720 (BEAKER) (test code = [facility], 1538) 78265: Artist'S Manager/Techni nadege ID = [id number] for Santana Owen POCT-GLUCOSE [id number] 18:53:24 Test Item Value Reference Range Interpretation Comments POC-GLUCOSE METER 138 mg/dL 70-110 H : TESTED A T [facility] 6720 (BEAKER) (test code = [facility], 1538) 04022: Artist'S Manager/Techni nadege ID = [id number] for Guevara Dumont POCT-GLUCOSE [id number] 16:53:31 Test Item Value Reference Range Interpretation Comments POC-GLUCOSE METER 149 mg/dL 70-110 H : TESTED A T [facility] 67[address] (BEAKER) (test code [facility], = 1538) 55522: Artist'S Manager/Techni nadege ID = [id number] for Coco Subramanian POCT-GLUCOSE [id number] 09:08:30 Test Item Value Reference Range Interpretation Comments POC-GLUCOSE METER 87 mg/dL 70-110 : TESTED A T [facility] 6720 (BEAKER) (test code = [facility], 1538) [address]: Artist'S Manager/Techni nadege ID = [id number] for [place]ASHM[place] SARS-COV2/RT-PCR ([facility])2021-12-27 19:47:01 Test Item Value Reference Range Interpretation Comments SARS-COV2/RT-PCR (test code = Negative Negative 0756681) Negative result for this test determines that [...] the FDA, the issued EUA will be effective until the declaration that circumstances exist justifying the authorization of the emergency use of in vitro diagnostic tests for detection and/or diagnosis of COVID-19 is terminated under Section 564(b)(2) of the Act or the EUA is revoked under Section 564(g) of the Act.Testing was performed using [employer] SARS-CoV-2 assay.Fact Sheet for Healthcare Providers:https://[email or web address].Hydrelis/heath/RT SARS-CoV-2 HCP Fact Sheet 51- 550929.pdfFact Sheet for Healthcare Patients:https://www.Evomail.Hydrelis/heath/RT SARS-CoV-2 Patient Fact Sheet EN 51-680316B9.vkfUttbwotwovel7716-36-19 12:01:09 Test Item Value Reference Range Interpretation Comments Sodium (test code = 139 meq/L 174-540 0225-2) Potassium (test code = 4.4 meq/L 3.5-5.1 2823-3) Chloride (test code = 103 meq/L 98-107 2075-0) CO2 (test code = 8-9) 30 meq/L 22-29 H VALERIE (test code = VALERIE) Artist'S Manager ID - PIAYA L Lab Interpretation (test Abnormal code = 78268-6) [facility] [id number] 12:01:09 Test Item Value Reference Range Interpretation Comments BUN (test code = 24 mg/dL 7-21 H 3094-0) Creatinine (test code 0.98 mg/dL 0.57-1.25 = 2160-0) BUN/Creatinine ratio 24 For a normal (test code = 3097-3) individ ual on a normal diet, th e reference interval for th e mass ratio rang es between 12:1 an d 20:1 (BUN in mg/dL/creatinin e in mg/dL) EGFR (test code = 55 mL/min/1.73 [place] [address]-3) NOT ACCURATE CREATININE CLEARANCE IN PREDICTING GLOMERULAR FILTRATION RATE . ESTIMATED GFR I S NOT APPLICABLE FOR DIALYSIS PATIENTS. VALERIE (test code = VALERIE) Artist'S Manager ID - PIAYA L Lab Interpretation Abnormal (test code = 97621-3) [facility]3644-07-91 12:01:09 Test Item Value Reference Range Interpretation Comments Sodium (test code = 139 meq/L 256-341 4380-2) Potassium (test code = 4.4 meq/L 3.5-5.1 2823-3) Chloride (test code = 103 meq/L 98-107 2075-0) CO2 (test code = 8-9) 30 meq/L 22-29 H VALERIE (test code = VALERIE) Artist'S Manager ID - PIAYA L Lab Interpretation (test Abnormal code = 62788-9) [facility] [id number] 12:01:09 Test Item Value Reference Range Interpretation Comments BUN (test code = 24 mg/dL 7-21 H 3094-0) Creatinine (test code 0.98 mg/dL 0.57-1.25 = 2160-0) BUN/Creatinine ratio 24 For a normal (test code = 3097-3) individ ual on a normal diet, th e reference interval for th e mass ratio rang es between 12:1 an d 20:1 (BUN in mg/dL/creatinin e in mg/dL) EGFR (test code = 55 mL/min/1.[place] [address]-7) NOT ACCURATE CREATININE CLEARANCE IN PREDICTING GLOMERULAR FILTRATION RATE . ESTIMATED GFR I S NOT APPLICABLE FOR DIALYSIS PATIENTS. VALERIE (test code = VALERIE) Artist'S Manager ID - PIAYA L Lab Interpretation Abnormal (test code = 56636-6) [id number] 12:01:09 Test Item Value Reference Range Interpretation Comments SODIUM (BEAKER) (test code = 381) 139 meq/L 136-145 POTASSIUM (BEAKER) (test code = 4.4 meq/L 3.5-5.1 379) CHLORIDE (BEAKER) (test code = 382) 103 meq/L 98-107 CO2 (BEAKER) (test code = 355) 30 meq/L 22-29 H Artist'S Manager ID - SARAVANAN LBUN AND CREATININE W/[id number] 12:01:09 Test Item Value Reference Range Interpretation Comments BLOOD UREA NITROGEN 24 mg/dL 7-21 H (BEAKER) (test code = 354) CREATININE (BEAKER) 0.98 mg/dL 0.57-1.25 (test code = 358) BUN/CREAT RATIO 24 For a normal (BEAKER) (test code individu al on a = 5809750961) normal diet, t he reference inter ginny for the mass ra antonia ranges between 12:1 and 20:1 (BUN i n mg/dL/creatinin e in mg/dL) EGFR (BEAKER) (test 55 mL/min/1.73 ESTIMA YONATAN GFR IS code = 1092) sq m NOT ACCURATE CREATININE CLEARANCE IN PREDICTING GLOMERULAR FILTRATION RATE . ESTIMATED GFR I S NOT APPLICABLE FOR DIALYSIS PATIEN TS. Artist'S Manager ID - SARAVANAN [id number] 11:44:44 Test Item Value Reference Range Interpretation Comments Hemoglobin (test code 13.5 See_Comment [Auto mated = 786-4) message] The system which generated this result transmit yonatan reference range : 11.2 - 15.7 GM/ DL. The reference range was not u sed to interpret th is result as normal/abnormal . VALERIE (test code = VALERIE) Artist'S Manager ID - [id number] Lab Interpretation Normal (test code = 98120-9) [facility] 11:44:44 Test Item Value Reference Range Interpretation Comments Hemoglobin (test code 13.5 See_Comment [Auto mated = 786-4) message] The system which generated this result transmit yonatan reference range : 11.2 - 15.7 GM/ DL. The reference range was not u sed to interpret th is result as normal/abnormal . VALERIE (test code = VALERIE) Artist'S Manager ID - [id number] Lab Interpretation Normal (test code = 48908-3) [facility]22-[facility]11 11:44:44 Test Item Value Reference Range Interpretation Comments HEMOGLOBIN (BEAKER) (test code = 13.5 GM/DL 11.2-15.7 410) Artist'S Manager ID - [id number] Description: SARS-CoV-2 (COVID-19) RNA [Presence] in Unspecified specimen by KAREN with probe [id number] 08:15:00 Test Item Value Reference Range Interpretation Comments SARS-CoV-2, Not Detected Not Detected This test was d chloéopejonas and KAREN (test code its performan ce = 12271-2) characteristics determinedby [facility] [employer]. T his test has not been FDA [...] result in this assay.
<br/ >Performed by:
[facility]

[facility]
[2022-09-07] MEDS ORDERED: MORPHINE 4 MG/ML SYR ONE ×2 (13:56→15:14)
--- NOTE | 2022-09-07 14:29 | RAD REPORT ---
EXAM DESCRIPTION: RAD - Foot Left 3 View - 09/07/2022 2:18 pm CLINICAL HISTORY: PAIN COMPARISON: No comparisons FINDINGS/IMPRESSION: No acute fracture. No malalignment. Plantar and dorsal aspect calcaneal spurjamarcus julien
--- NOTE | 2022-09-07 14:30 | RAD REPORT ---
EXAM DESCRIPTION: RAD - Hip Left 2 View - 09/07/2022 2:18 pm CLINICAL HISTORY: PAIN COMPARISON: No comparisons FINDINGS/IMPRESSION: Slight foreshortening and offset at the left femoral neck concerning for a femo ral neck fracture. No dislocation. CT could confirm.
--- NOTE | 2022-09-07 14:32 | RAD REPORT ---
EXAM DESCRIPTION: RAD - Pelvis - 09/07/2022 2:18 pm CLINICAL HISTORY: fall COMPARISON: Hip Left 2 View dated 09/07/2022 FINDINGS/IMPRESSION: No acute fracture. No malalignment. Bilateral acetabular degenerative changes. No femur fracture identified on these frontal views. Note that the dedicated left hip radiographs are more suggestive of a left subcapital femoral neck fracture. Consider CT to confirm.
[2022-09-07 15:21] LABS: Absolute Lymphocytes (CBC) 2.8 K/uL (0.7-4.9); Hematocrit 30.1 % (36.0-45.0); Lymphocytes % 41.7 % (15.3-44.8); MCV 90.6 fL (80-100); RBC Red Blood Cell Count 3.32 M/uL (3.86-4.86)
--- NOTE | 2022-09-07 15:23 | ER ---
Nurse's Notes [facility] Name: Dyana Frausto Age: 76 yrs Sex: Female : 1945 Arrival Date: 09/07/2022 Time: 13:48 Bed 20 Private MD: Diagnosis: Fracture of unspecified part of neck of left femur, initial encounter for closed fracture Presentation: 09/07 14:01 Chief complaint: EMS states: client slipped and fell on the rug in her garage at about kc6 1230 this afternoon and landed on her left hip. Coronavirus screen: Vaccine status: Patient reports being unvaccinated. At this time, the client does not indicate any symptoms associated with coronavirus-19. Ebola Screen: No symptoms or risks identified at this time. Initial Sepsis Screen: Does the patient meet any 2 criteria? No. Patient's initial sepsis screen is negative. Does the patient have a suspected source of infection? No. Patient's initial sepsis screen is negative. Risk Assessment: Do you want to hurt yourself or someone else? Patient reports no desire to harm self or others. Onset of symptoms was September 07, 2022 at 12:30. 14:01 Method Of Arrival: EMS: [facility] kc6 14:01 Acuity: GENARO 3 kc6 Triage Assessment: 14:05 General: Appears in no apparent distress. uncomfortable, Behavior is calm, cooperative, kc6 appropriate for age. Pain: Complains of pain in left hip Pain does not radiate. Pain currently is 4 out of 10 on a pain scale. Quality of pain is described as sharp, Pain began suddenly, Is continuous, Alleviated by medications, rest, Aggravated by exercise, increased activity, repositioning, weight bearing. EENT: No signs and/or symptoms were reported regarding the EENT system. Neuro: Hutchison Agitation-Sedation Scale (RASS): 0 - Alert and Calm Level of Consciousness is awake, alert, obeys commands, Oriented to person, place, time, situation, Appropriate for age. Cardiovascular: Heart tones S1 S2 present Capillary refill < 3 seconds Pulses are 2+ in right posterior tibial artery, right dorsalis pedis artery, left posterior tibial artery and left dorsalis pedis artery. Respiratory: Airway is patent Respiratory effort is even, unlabored, Respiratory pattern is regular, symmetrical. GI: No signs and/or symptoms were reported involving the gastrointestinal system. : No signs and/or symptoms were reported regarding the genitourinary system. Derm: No signs and/or symptoms reported regarding the dermatologic system. Skin is intact, Skin is pink, warm \T\ dry. Musculoskeletal: Circulation, motion, and sensation intact. Capillary refill < 3 seconds, Range of motion: limited in left hip Swelling absent Tenderness present in left hip. Historical: - Allergies: 14:05 Sulfa (Sulfonamide Antibiotics); kc6 14:05 Iodine; Contrast; kc6 14:05 PENICILLINS; kc6 14:05 Codeine; kc6 - Home Meds: 14:05 lisinopril 40 mg oral tab for hypertension [Active]; tramadol 50 mg oral tab 1 tab kc6 [Active]; Euthyrox 75 mcg oral tab 1 tab once daily [Active]; Metoprolol Tartrate Oral [Active]; hydroxychloroquine [Active]; - PMHx: 14:05 Hypertensive disorder; Hyperthyroidism; Rheumatoid arthritis; kc6 - PSHx: 14:05 Gastric Bypass; hernia repair; kc6 - Immunization history:: Client reports having NOT received the Covid vaccine. Flu vaccine is not up to date. - Social history:: Smoking status: Patient denies any tobacco usage or history of. Screenin:15 Abuse screen: Denies threats or abuse. Denies injuries from another. Nutritional lg3 screening: No deficits noted. Tuberculosis screening: No symptoms or risk factors identified. Fall Risk Fall in past 12 months (25 points). Secondary diagnosis (15 points) impaired mobility, IV access (20 points). Ambulatory Aid- None/Bed Rest/Nurse Assist (0 pts). Gait- Impaired (20 pts.). Mental Status- Oriented to own ability (0 pts). Total Vazquez Fall Scale indicates High Risk Score (45 or more points). Fall prevention measures have been instituted. Side Rails Up X 2 Frequent Obs/Assessments Occuring As available patient and family educated on Fall Prevention Program and Strategies. Assessment: 14:05 Reassessment: see triage assessment. kc6 15:05 Reassessment: Patient appears in no apparent distress at this time. No changes from main campus medical center previously documented assessment. Patient and/or family updated on plan of care and expected duration. Pain level reassessed. Patient is alert, oriented x 3, equal unlabored respirations, skin warm/dry/pink. 16:05 Reassessment: Patient appears in no apparent distress at this time. No changes from kc6 previously documented assessment. Patient and/or family updated on plan of care and expected duration. Pain level reassessed. Patient is alert, oriented x 3, equal unlabored respirations, skin warm/dry/pink. 17:05 Reassessment: Patient appears in no apparent distress at this time. No changes from kc6 previously documented assessment. Patient and/or family updated on plan of care and expected duration. Pain level reassessed. Patient is alert, oriented x 3, equal unlabored respirations, skin warm/dry/pink. 17:58 Reassessment: Patient appears in no apparent distress at this time. No changes from kc6 previously documented assessment. Patient and/or family updated on plan of care and expected duration. Pain level reassessed. Patient is alert, oriented x 3, equal unlabored respirations, skin warm/dry/pink. client stated her pain is 0/10 Patient denies pain at this time. Patient states feeling better. Patient states symptoms have improved. 19:18 Reassessment: Patient appears in no apparent distress at this time. No changes from lg3 previously documented assessment. Patient and/or family updated on plan of care and expected duration. Pain level reassessed. pt quietly resting at this time. Vital Signs: 14:01 BP 172 / 74; Pulse 61; Resp 18 S; Temp 98.1(O); Pulse Ox 100% on R/A; Weight 58.97 kg kc6 (R); Height 5 ft. 3 in. (160.02 cm) (R); Pain 4/10; 15:01 BP 174 / 90 LA Supine (auto/reg); Pulse 75 LA; Resp 18 S; Pulse Ox 98% on R/A; Pain kc6 4/10; 16:01 BP 147 / 73; Pulse 67; Resp 18 S; Pulse Ox 97% on R/A; Pain 5/10; kc6 17:01 BP 133 / 61; Pulse 67; Resp 16 S; Pulse Ox 98% on 2.5 lpm NC; Pain 4/10; kc6 17:59 BP 147 / 69; Pulse 65; Resp 17 S; Pulse Ox 99% on 2.5 lpm NC; Pain 0/10; kc6 19:16 BP 125 / 57; Pulse 56; Resp 18 S; Pulse Ox 99% on 2 lpm NC; lg3 14:01 Body Mass Index 23.03 (58.97 kg, 160.02 cm) kc6 ED Course: 13:48 Patient arrived in ED. jd3 13:49 Marvin George PA is PHCP. cp 13:49 Brigido Cornell MD is Attending Physician. cp 13:50 Maintain EMS IV. Dressing intact. Good blood return noted. Site clean \T\ dry. Gauge \T\ aaliyah 6 site: 20G RAC. 13:52 Breann Dennis, CCEILIO is Primary Nurse. kc6 14:05 Triage completed. kc6 14:20 XRAY Foot LEFT 3 View In Process Unspecified. EDMS 14:20 XRAY Pelvis In Process Unspecified. EDMS 14:20 XRAY Hip LEFT 2 view In Process Unspecified. EDMS 14:27 Arm band placed on. jd3 15:15 Ballard cath inserted, using sterile technique, 16 Fr., by me, by ED staff, balloon kc6 inflated, returned clear yellow urine. Patient tolerated well. 15:21 Marsha Carmona MD is Hospitalizing Provider. cp 15:28 Urine Microscopic Only Sent. kc6 15:52 XRAY Chest (1 view) In Process Unspecified. EDMS 19:15 No provider procedures requiring assistance completed. Patient admitted, IV remains in lg3 place. intact, No redness/swelling at site. 19:16 Patient has correct armband on for positive identification. Placed in gown. Bed in low lg3 position. Call light in reach. Side rails up X2. Client placed on continuous cardiac and pulse oximetry monitoring. NIBP monitoring applied. re examiner on. Door closed. Noise minimized. Warm blanket given. Administered Medications: 14:00 Drug: morphine 4 mg Route: IVP; Infused Over: 4 mins; Site: right antecubital; kc6 15:00 Follow up: Response: No adverse reaction; Pain is decreased; RASS: Alert and Calm (0) [facility] 15:27 Drug: morphine 4 mg Route: IVP; Infused Over: 4 mins; Site: right antecubital; kc6 16:27 Follow up: Response: No adverse reaction; Pain is decreased; RASS: Alert and Calm (0) [facility] 16:46 Drug: Dilaudid (HYDROmorphone) 1 mg Route: IVP; Site: right antecubital; kc6 17:46 Follow up: Response: No adverse reaction; Pain is decreased; RASS: Alert and Calm (0) kc6 17:56 Drug: Potassium Effervescent Tablet 50 mEq Route: PO; kc6 18:56 Follow up: Response: No adverse reaction kc6 17:56 Drug: Magnesium Sulfate 1 grams Route: IVPB; Infused Over: 1 hrs; Site: right kc6 antecubital; 18:56 Follow up: Response: No adverse reaction; IV Status: Infusion continued kc6 17:57 Drug: Potassium Chloride 20 mEq Route: IV; Rate: calculated rate; Site: right kc6 antecubital; 18:57 Follow up: Response: No adverse reaction; IV Status: Infusion continued kc6 Medication: 19:16 VIS not applicable for this client. lg3 Outcome: 15:22 Decision to Hospitalize by Provider. cp 20:02 Admitted to Med/surg accompanied by tech, via stretcher, room 412, with oxygen, Report lg3 called to Adrianna 20:02 Condition: stable 20:02 Instructed on the need for admit, Demonstrated understanding of instructions. 20:02 Patient left the ED. lg3 Signatures: Dispatcher [employer] EDMS Marvin George PA PA cp Davies, Jonathon, RN RN jd3 Gibson, Lacie, RN RN lg3 Breann Dennis RN RN kc6 Corrections: (The following items were deleted from the chart) 19:21 14:05 Cardiovascular: Heart tones S1 S2 present Capillary refill < 3 seconds kc6 kc6
--- NOTE | 2022-09-07 15:23 | EDPHYS ---
Physician Documentation [facility] Name: Dyana Frausto Age: 76 yrs Sex: Female : 1945 Arrival Date: 09/07/2022 Time: 13:48 Bed 20 Private MD: ED Physician Brigido Cornell HPI: 09/07 14:00 This 76 yrs old Female presents to ER via EMS with complaints of Fall. cp 14:00 Details of fall: The patient fell from an upright position, while walking. Onset: The cp symptoms/episode began/occurred today, 2 hour(s) ago. Associated injuries: The patient sustained left hip, painful injury, left foot, painful injury. Severity of symptoms: in the emergency department the symptoms are unchanged, despite home interventions. 14:00 Patient reports tripping over carpet on floor prior to fall. Denies hitting head. cp Historical: - Allergies: 14:05 Sulfa (Sulfonamide Antibiotics); kc6 14:05 Iodine; Contrast; kc6 14:05 PENICILLINS; kc6 14:05 Codeine; kc6 - Home Meds: 14:05 lisinopril 40 mg oral tab for hypertension [Active]; tramadol 50 mg oral tab 1 tab kc6 [Active]; Euthyrox 75 mcg oral tab 1 tab once daily [Active]; Metoprolol Tartrate Oral [Active]; hydroxychloroquine [Active]; - PMHx: 14:05 Hypertensive disorder; Hyperthyroidism; Rheumatoid arthritis; kc6 - PSHx: 14:05 Gastric Bypass; hernia repair; kc6 - Immunization history:: Client reports having NOT received the Covid vaccine. Flu vaccine is not up to date. - Social history:: Smoking status: Patient denies any tobacco usage or history of. ROS: 14:05 Constitutional: Negative for body aches, chills, fever, poor PO intake. cp 14:05 Eyes: Negative for injury, pain, redness, and discharge. cp 14:05 Neck: Negative for pain with movement, pain at rest, stiffness. 14:05 Cardiovascular: Negative for chest pain, palpitations. 14:05 Respiratory: Negative for cough, shortness of breath, wheezing. 14:05 Abdomen/GI: Negative for abdominal pain, nausea, vomiting, and diarrhea. 14:05 Back: Negative for pain at rest, pain with movement. 14:05 MS/extremity: Positive for pain, tenderness, of the left hip, Negative for paresthesias. 14:05 Neuro: Negative for altered mental status, dizziness, headache, loss of consciousness, numbness, syncope, weakness. 14:05 All other systems are negative. Exam: 14:10 Constitutional: The patient appears in no acute distress, alert, awake, cp non-diaphoretic, non-toxic, well developed, well nourished, in obvious pain, uncomfortable. 14:10 Head/Face: Normocephalic, atraumatic. cp 14:10 Eyes: Periorbital structures: appear normal, Pupils: equal, round, and reactive to light and accomodation, Extraocular movements: intact throughout, Conjunctiva: normal, no exudate, no injection, Sclera: no appreciated abnormality, Lids and lashes: appear normal, bilaterally. 14:10 ENT: External ear(s): are unremarkable, Nose: is normal, Mouth: Lips: moist, Oral mucosa: pink and intact, moist, Posterior pharynx: Airway: no evidence of obstruction, patent. 14:10 Neck: C-spine: vertebral tenderness, is not appreciated, crepitus, is not appreciated, ROM/movement: is normal, is supple, without pain, no range of motions limitations. 14:10 Chest/axilla: Inspection: normal, Palpation: is normal, no crepitus, no tenderness. 14:10 Cardiovascular: Rate: normal, Rhythm: regular, Edema: is not appreciated, JVD: is not appreciated. 14:10 Respiratory: the patient does not display signs of respiratory distress, Respirations: normal, no use of accessory muscles, no retractions, labored breathing, is not present, Breath sounds: are clear throughout, no decreased breath sounds, no stridor, no wheezing. 14:10 Abdomen/GI: Inspection: abdomen appears normal, Bowel sounds: active, all quadrants, Palpation: abdomen is soft and non-tender, in all quadrants. 14:10 Back: pain, is absent, ROM is normal. 14:10 Musculoskeletal/extremity: Extremities: noted in the left hip: pain, tenderness, ROM: limited passive range of motion due to pain, in the left hip, Pulses: noted to be 2+ in the left dorsalis pedis artery, the left hip Severe pain noted. 14:10 Neuro: Orientation: to person, place \T\ time. Mentation: is normal, Motor: moves all fours, strength is normal, Sensation: is normal. 15:54 ECG was reviewed by the Attending Physician. cp Vital Signs: 14:01 BP 172 / 74; Pulse 61; Resp 18 S; Temp 98.1(O); Pulse Ox 100% on R/A; Weight 58.97 kg kc6 (R); Height 5 ft. 3 in. (160.02 cm) (R); Pain 4/10; 15:01 BP 174 / 90 LA Supine (auto/reg); Pulse 75 LA; Resp 18 S; Pulse Ox 98% on R/A; Pain kc6 4/10; 16:01 BP 147 / 73; Pulse 67; Resp 18 S; Pulse Ox 97% on R/A; Pain 5/10; kc6 17:01 BP 133 / 61; Pulse 67; Resp 16 S; Pulse Ox 98% on 2.5 lpm NC; Pain 4/10; kc6 17:59 BP 147 / 69; Pulse 65; Resp 17 S; Pulse Ox 99% on 2.5 lpm NC; Pain 0/10; kc6 19:16 BP 125 / 57; Pulse 56; Resp 18 S; Pulse Ox 99% on 2 lpm NC; lg3 14:01 Body Mass Index 23.03 (58.97 kg, 160.02 cm) kc6 MDM: 13:51 Patient medically screened. cp 15:15 Physician consultation: Aquilino Petty MD regarding consult, patient's condition. cp 15:25 Data reviewed: vital signs, nurses notes, radiologic studies, plain films. cp 15:25 Test interpretation: by ED physician or midlevel provider: plain radiologic studies. cp Counseling: I had a detailed discussion with the patient and/or guardian regarding: the historical points, exam findings, and any diagnostic results supporting the discharge/admit diagnosis, radiology results, the need for further work-up and treatment in the hospital. Physician consultation: Marsha Carmona MD regarding admission, to the telemetry unit. patient's condition. 09/07 14:33 Order name: Basic Metabolic Panel; Complete Time: 16:40 cp 09/07 14:33 Order name: CBC with Diff; Complete Time: 16:40 cp 09/07 17:20 Interpretation: Normal except: RBC 3.32; HGB 10.1; HCT 30.1; RDW 15.9. cp 09/07 14:33 Order name: LFT's; Complete Time: 16:40 cp 09/07 14:33 Order name: Magnesium; Complete Time: 16:40 cp 09/07 14:33 Order name: NT PRO-BNP; Complete Time: 16:40 cp 09/07 14:33 Order name: PT-INR; Complete Time: 16:40 cp 09/07 14:33 Order name: Troponin HS; Complete Time: 16:40 cp 09/07 14:33 Order name: Urine Microscopic Only; Complete Time: 16:40 cp 09/07 15:01 Order name: SARS RAPID; Complete Time: 16:40 cp 09/07 15:24 Order name: Urine Dipstick-Ancillary; Complete Time: 16:40 EDMS 09/07 18:30 Order name: CBC with Automated Diff EDMS 09/07 18:30 Order name: CBC with Automated Diff EDMS 09/07 18:30 Order name: Comprehensive Metabolic Panel EDMS 09/07 18:30 Order name: Comprehensive Metabolic Panel EDMS 09/07 13:51 Order name: XRAY Foot LEFT 3 View; Complete Time: 14:32 cp 09/07 14:32 Interpretation: Reviewed report. cp 09/07 13:51 Order name: XRAY Pelvis; Complete Time: 15:17 cp 09/07 13:51 Order name: XRAY Hip LEFT 2 view; Complete Time: 14:32 cp 09/07 14:32 Interpretation: Report reviewed. cp 09/07 14:33 Order name: XRAY Chest (1 view); Complete Time: 16:40 cp 09/07 18:24 Order name: Abdomen EDMS 09/07 18:30 Order name: Magnesium EDMS 09/07 18:30 Order name: Magnesium EDMS 09/07 18:30 Order name: Phosphorus EDMS 09/07 18:30 Order name: Phosphorus EDMS 09/07 18:30 Order name: Protime (+INR) EDMS 09/07 18:30 Order name: Protime (+INR) EDMS 09/07 18:30 Order name: PTT, Activated Partial Thromb EDMS 09/07 18:30 Order name: PTT, Activated Partial Thromb EDMS 09/07 13:51 Order name: IV; Complete Time: 14:01 cp 09/07 14:33 Order name: EKG; Complete Time: 14:34 cp 09/07 14:33 Order name: Cardiac monitoring; Complete Time: 15:55 cp 09/07 14:33 Order name: EKG - Nurse/Tech; Complete Time: 15:55 cp 09/07 14:33 Order name: Labs collected and sent; Complete Time: 15:28 cp 09/07 14:33 Order name: O2 Per Protocol; Complete Time: 14:38 cp 09/07 14:33 Order name: O2 Sat Monitoring; Complete Time: 14:38 cp 09/07 14:33 Order name: Ball[place]; Complete Time: 15:28 cp 09/07 14:33 Order name: Urine Dipstick-Ancillary (obtain specimen); Complete Time: 15:28 09/07 18:30 Order name: CONS Physician Consult EDCO 09/07 18:30 Order name: Physical Therapy Consult EDCO 09/07 18:30 Order name: NPO EDMS EC:54 Rate is 66 beats/min. Rhythm is regular. OH interval is normal. QRS interval is normal. cp QT interval is normal. T waves are Inverted in lead aVR. Interpreted by me. Reviewed by me. Administered Medications: 14:00 Drug: morphine 4 mg Route: IVP; Infused Over: 4 mins; Site: right antecubital; [facility] 15:00 Follow up: Response: No adverse reaction; Pain is decreased; RASS: Alert and Calm (0) [facility] 15:27 Drug: morphine 4 mg Route: IVP; Infused Over: 4 mins; Site: right antecubital; [facility] 16:27 Follow up: Response: No adverse reaction; Pain is decreased; RASS: Alert and Calm (0) 6 16:46 Drug: Dilaudid (HYDROmorphone) 1 mg Route: IVP; Site: right antecubital; 6 17:46 Follow up: Response: No adverse reaction; Pain is decreased; RASS: Alert and Calm (0) [facility] 17:56 Drug: Potassium Effervescent Tablet 50 mEq Route: PO; 6 18:56 Follow up: Response: No adverse reaction 6 17:56 Drug: Magnesium Sulfate 1 grams Route: IVPB; Infused Over: 1 hrs; Site: right [facility] antecubital; 18:56 Follow up: Response: No adverse reaction; IV Status: Infusion continued kc6 17:57 Drug: Potassium Chloride 20 mEq Route: IV; Rate: calculated rate; Site: right kc6 antecubital; 18:57 Follow up: Response: No adverse reaction; IV Status: Infusion continued kc6 Disposition Summary: 09/07/22 15:22 Hospitalization Ordered Hospitalization Status: Inpatient Admission cp Provider: Marsha Carmona cp Location: Telemetry/MedSurg (Inpatient) cp Condition: Stable cp Problem: new cp Symptoms: have improved cp Bed/Room Type: Standard cp Room Assignment: 412(09/07/22 18:52) dw Diagnosis - Fracture of unspecified part of neck of left femur, initial encounter for closed cp fracture Forms: - Medication Reconciliation Form cp - SBAR form cp Addendum: 09/11/2022 00:11 Co-signature as Attending Physician, Brigido Cornell MD. r n Signatures: Dispatcher [employer] EDCeci Muniz RN RN dw Anderson, Corey, MD MD cha Nieto, Roman, MD MD rn Page, Corey, PA PA cp Breann Dennis RN RN kc6 Corrections: (The following items were deleted from the chart) 09/07 18:31 17:48 Abdomen Pelvis Wo Con+CT.RAD.BRZ ordered. EDMS EDMS 18:52 15:22 cp dw
[2022-09-07 15:24] LABS: Urine Blood Negative (Negative); Urine Glucose Negative (Negative); Urine Protein Negative (Negative); Urine Specific Gravity 1.015 (1.005-1.030)
[2022-09-07 15:31] LABS: Protime INR 1.08
[2022-09-07 15:49] LABS: Urine RBC <5 /HPF (None Seen)
[2022-09-07 15:58] LABS: SARS-CoV-2 Antigen Rapid Res Negative (Negative)
[2022-09-07 16:03] LABS: Albumin 2.6 g/dL (3.4-5.0); Bilirubin Direct 0.2 mg/dL (0-0.2); Bilirubin Total 0.5 mg/dL (0.2-1.0); Magnesium 1.5 mg/dL (1.8-2.4); Protein, Total 5.2 g/dL (6.4-8.2); Troponin High Sensitivity 9.4 pg/mL (<58.9)
[2022-09-07 16:06] LABS: Potassium 2.8 mmol/L (3.5-5.1)
--- NOTE | 2022-09-07 16:18 | RAD REPORT ---
EXAM DESCRIPTION: RAD - Chest Single View - 09/07/2022 3:50 pm CLINICAL HISTORY: left hip fracture COMPARISON: Abdomen Pelvis Wo Contrast dated 03/17/2022 FINDINGS: Lines: None. Lungs: No evidence of edema or pneumonia. Pleural: No significant pleural effusions or pneumothorax. Cardiac: The heart size is within normal limits. Mediastinum: Within normal limits. Bones: No acute fractures. Other: Pigtail drainage catheter overlies the left upper quadrant. IMPRESSION: No acute cardiopulmonary disease.
[2022-09-07] MEDS ORDERED: HYDROMORPHONE HCL 2 MG/ML inj ONE (16:35)
[2022-09-07] MEDS ORDERED: POTASSIUM 25 MEQ EFFERV TAB ONE (17:34)
[2022-09-07] MEDS ORDERED: MAGNESIUM SULFATE 1 gm IVPB 1 GM/100 ML BAG IV ONE (17:34)
[2022-09-07] MEDS ORDERED: KCL 20 MEQ/100 mL IVPB 100 ML IV ONE (17:34)
[2022-09-07] MEDS ORDERED: ACETAMINOPHEN 500 MG TAB PO PRN (18:23)
[2022-09-07] MEDS ORDERED: CEFAZOLIN 1 GM in NA CHLORIDE 0.9% 50 ML IVPB ONE (18:23)
[2022-09-07] MEDS ORDERED: ONDANSETRON 4 MG/2 ML VIAL IV PRN (18:23)
--- NOTE | 2022-09-07 18:34 | P.HP ---
Certification for Inpatient Patient admitted to: Inpatient With expected LOS: >2 Midnights Patient will require the following post-hospital care: None Practitioner: I am a practitioner with admitting privileges, knowledge of patient current condition, hospital course, and medical plan of care. Services: Services provided to patient in accordance with Admission requirements found in Title 42 Section 412.3 of the Code of Federal Regulations Patient History Date of Service: 09/07/22 Reason for admission: Left femur fracture History of Present Illness: Patient is a 76-year-old female with a history of rheumatoid arthritis who presents to the emergency room with left femoral neck fracture. Patient got her foot caught up in her garage and she fell. She landed on her left leg and suffered a left femoral neck fracture. She has been taking Plaquenil for her rheumatoid arthritis. She had been on prednisone in the past but has not taken it in many months. She follows up with a local staffing account manager, but she does not know his name. Otherwise, patient denies any cardiopulmonary history. Recently she has been dealing with some issues with reflux disease. She apparently had what sounds like a fundoplication or a TIF procedure. She did have some abdominal hernia issues as well. A lot of these are stable and this should not affect her surgical outcome. She is low risk for cardiopulmonary complications. - Past Medical/Surgical History -: Rheumatoid arthritis -: Hypertension -: Hypothyroidism -: TIF procedure -: Gastric bypass procedure -: Hernia repair - Family History Father Family History: Reviewed- Non-Contributory - Social History Smoking Status: Never smoker Alcohol use: No CD- Drugs: No Review of Systems 10-point ROS is otherwise unremarkable Physical Examination - Vital Signs Temperature: 98 F Blood Pressure: 130/70 Pulse: 88 Respirations: 18 Pulse Ox (%): 97 - Physical Exam General: Alert, In no apparent distress, Oriented x3 HEENT: Atraumatic, PERRLA, Mucous membr. moist/pink, EOMI, Sclerae nonicteric Neck: Supple, 2+ carotid pulse no bruit, No LAD, Without JVD or thyroid abnormality Respiratory: Clear to auscultation bilaterally, Normal air movement Cardiovascular: Regular rate/rhythm, Normal S1 S2 Gastrointestinal: Normal bowel sounds, Soft and benign, Non-distended, No tenderness Musculoskeletal: No clubbing, No swelling, No tenderness Integumentary: No rashes Neurological: Normal gait, Normal speech, Sensation intact, Cranial nerves 3-12 intact, Normal affect, Abnormal strength, Abnormal tone Lymphatics: No axilla or inguinal lymphadenopathy - Studies Laboratory Data (last 24 hrs) 09/07/22 15:14: PT 11.9, INR 1.08 09/07/22 15:14: WBC 6.70, Hgb 10.1 L, Hct 30.1 L, Plt Count 217 09/07/22 15:14: Sodium 142, Potassium 2.8 L*, BUN 8, Creatinine 0.73, Glucose 81, Magnesium 1.5 L, Total Bilirubin 0.5, AST 25, ALT 20, Alkaline Phosphatase 89 Assessment & Plan - Problems (Diagnosis) (1) Left displaced femoral neck fracture Current Visit: Yes Status: Acute (2) History of hypertension Current Visit: Yes Status: Acute (3) History of hypothyroidism Current Visit: Yes Status: Acute (4) History of rheumatoid arthritis Current Visit: Yes Status: Acute - Plan Plan: 1. Gentle hydration 2. Pain control 3. Orthopedic surgery consultation 4. Strict blood pressure and blood sugar control 5. DVT prophylaxis 6. Physical therapy evaluation 7. Cardiopulmonary risk is low as patient does not have a history of cardiac disease and has not been having any chest pain or dyspnea on exertion. She has had cardiac work-up in the past which has been unremarkable. She recently had a TIF procedure which she tolerated. We will monitor her closely during the perioperative period 8. Possible rehab evaluation depending on how she does with physical therapy after surgical treatment 9. GI prophylaxis as needed Discharge Plan: Other Plan to discharge in: Greater than 2 days - Advance Directives Does patient have a Living Will: No Does patient have a Durable POA for Healthcare: No - Code Status/Comfort Care Code Status Assessed: Yes Code Status: Full Code Critical Care: No Time Spent Managing PTS Care (In Minutes): 50
[2022-09-07] MEDS ORDERED: ONDANSETRON 4 MG/2 ML VIAL ONE (18:47)
[2022-09-07] MEDS ORDERED: CEFAZOLIN SODIUM 1 GM/VIAL ONE (18:47)
[2022-09-07] MEDS ORDERED: NA CHLORIDE 0.9% 50 ML IV ONE (18:48)
[2022-09-07] MEDS ORDERED: NA CHLORIDE 0.9% 1,000 ML ONE (18:48)
[2022-09-07] MEDS: NA CHLORIDE 0.9% 1,000 ML IV SCH (19:00)
--- NOTE | 2022-09-07 21:38 | RAD REPORT ---
EXAM DESCRIPTION: CTAbdomen Pelvis Wo Contrast - 09/07/2022 9:20 pm CLINICAL HISTORY: left femur fracture COMPARISON: Abdomen Pelvis Wo Contrast dated 03/17/2022; Hip Left 2 View dated 09/07/2022 TECHNIQUE: CT of the abdomen and pelvis was performed without contrast. All CT scans are performed using dose optimization technique as appropriate and may include automated exposure control or mA/KV adjustment according to patient size. FINDINGS: Lower chest: Mild cardiomegaly. Thickened distal esophagus . Liver: No acute abnormality or suspicious lesions. Biliary: No biliary ductal dilatation. Stomach: Dulce Maria-en-Y gastric bypass. An internal catheter is present at the gastrojejunostomy. The exac t course of the catheter is unclear. Duodenum: No significant focal abnormality. Pancreas: No significant abnormality. Spleen: No significant abnormality. Adrenal: No suspicious lesions. Kidney/ureter: No hydronephrosis. No renal calculi. Retroperitoneum: No retroperitoneal adenopathy. Vascular: No aneurysm. Bowel: No significant focal abnormality. Normal appendix . Peritoneum: No ascites or free air. Bladder: Bladder is decompressed via Ballard catheter. Reproductive: No adnexal masses. Bones: Findings remain suspicious for a nondisplaced left subcapital femoral neck fracture with sligh t offset at the left femoral neck. . Other: n/a IMPRESSION: 1. Findings remain suspicious for a nondisplaced left femoral neck fracture. 2. Surgical changes from Dulce Maria-en-Y gastric bypass. Compared with 03/17/2022, an internal drainage cat heter has been placed in the region of the gastrojejunostomy. This area is not well assessed without IV contrast.
[2022-09-07 22:20] VITALS: BMI 23.1
[2022-09-07] MEDS: HYDROMORPHONE HCL 1 MG/ML INJ IV PRN (23:21)
[2022-09-08 03:43] LABS: Hematocrit 29.7 % (36.0-45.0); Lymphocytes % 30.9 % (15.3-44.8); MCV 91.8 fL (80-100); MPV 9.4 fL (7.6-11.3); RBC Red Blood Cell Count 3.23 M/uL (3.86-4.86)
[2022-09-08 03:46] LABS: Protime INR 1.06
[2022-09-08 04:04] LABS: Albumin 2.4 g/dL (3.4-5.0); Bilirubin Total 0.5 mg/dL (0.2-1.0); Magnesium 1.9 mg/dL (1.8-2.4); Phosphorus 3.3 mg/dL (2.5-4.9); Potassium 4.2 mmol/L (3.5-5.1); Protein, Total 5.1 g/dL (6.4-8.2)
[2022-09-08] MEDS: HYDROMORPHONE HCL 1 MG/ML INJ IV PRN (07:53)
[2022-09-08] MEDS: NA CHLORIDE 0.9% 1,000 ML IV SCH ×2 (08:20→16:56)
[2022-09-08] MEDS ORDERED: PNEUMOCOCCAL VACCINE 0.5 ML IMVAC ONE (09:00)
[2022-09-08] MEDS ORDERED: TRANEXAMIC ACID 1,000 MG/10 ML VIAL IV ONE (10:26)
[2022-09-08] MEDS ORDERED: propofoL 200 MG/20 ML VIAL IV ONE (11:31)
[2022-09-08] MEDS ORDERED: FENTANYL CITR 100 MCG/2 ML ONE (11:32)
[2022-09-08] MEDS ORDERED: LIDOCAINE 2% MPF 5 ML VIAL ONE (11:32)
[2022-09-08] MEDS ORDERED: ONDANSETRON 4 MG/2 ML VIAL ONE ×2 (11:32→14:11)
[2022-09-08] MEDS ORDERED: MIDAZOLAM HCL 2 MG/2 ML INJ ONE (11:32)
[2022-09-08] MEDS ORDERED: dexAMETHasone 10 MG/ML VIAL ONE (11:45)
[2022-09-08] MEDS ORDERED: EPINEPHRINE/PF 1 MG/ML AMP ONE (11:45)
[2022-09-08] MEDS ORDERED: BUPIVACAINE 0.5% PF 10 ML VIAL ONE (11:45)
[2022-09-08] MEDS ORDERED: BUPIVACAINE 0.25% PF 10 ML VIAL ONE (11:45)
[2022-09-08] MEDS ORDERED: CLINDAMYCIN 600MG/D5W 600 MG/50 ML BAG IV ONE (12:00)
[2022-09-08] MEDS ORDERED: GLYCOPYRROLATE 0.2 MG/ML SYR ONE (12:18)
[2022-09-08] MEDS ORDERED: EPHEDRINE SULF 50 MG/ML VIAL ONE (12:23)
--- NOTE | 2022-09-08 13:41 | P.BOP ---
Preoperative diagnosis: left femoral neck fracture Postoperative diagnosis: same Primary procedure: closed reduction percutaneous screw fixation left femoral neck fracture Rough And Truing Machine Operator: NONE,NONE Estimated blood loss: 40 cc Specimen: none Findings: see dictation Anesthesia: General Complications: None Implants: 3- 6.5 mm cannulated screws Fluids & blood products: per anesthesia record Transferred to: Recovery Room Condition: Good
[2022-09-08] MEDS ORDERED: DOCUSATE NA 100 MG CAP PO PRN (13:53)
[2022-09-08] MEDS ORDERED: HYDROCODONE/APAP 7.5/325 MG TAB PO PRN (13:53)
[2022-09-08] MEDS: HYDROMORPHONE HCL 1 MG/ML INJ ONE ×2 (14:14→14:19)
--- NOTE | 2022-09-08 14:26 | RAD REPORT ---
EXAM DESCRIPTION: RAD - Hip Left 2 View - 09/08/2022 2:14 pm CLINICAL HISTORY: Left femoral fracture FINDINGS: Pins affix a femoral fracture in good alignment
[2022-09-08] MEDS ORDERED: MEPERIDINE HCL 25 MG/ML SYR ONE (14:30)
--- NOTE | 2022-09-08 15:35 | RAD REPORT ---
EXAM DESCRIPTION: CR - Hip in OR Left 2 View - 09/08/2022 3:22 pm CLINICAL HISTORY: Femoral fracture FINDINGS: Fluoroscopy time 0.9 minutes. Eleven intraoperative fluoroscopic spot images obtained. Surgery performed by Dr. Petty Pins affix a femoral fracture
[2022-09-08] MEDS: CLINDAMYCIN INJ 600 MG in NA CHLORIDE 0.9% 50 ML IV SCH (16:56)
[2022-09-08] MEDS: ENOXAPARIN 40 MG/0.4 ML SQ SCH (16:57)
--- NOTE | 2022-09-08 17:52 | P.PN ---
Subjective Date of Service: 09/08/22 Chief Complaint: Left femur fracture No acute events overnight. She reports significant pain in her left hip this morning, grading in a 10/10 in severity. She denies chest pain or shortness of breath. Review of Systems 10-point ROS is otherwise unremarkable Musculoskeletal: Leg Pain (left hip) Physical Examination - Vital Signs Temperature: 97.0 F Blood Pressure: 170/85 Pulse: 71 Respirations: 16 Pulse Ox (%): 99 - Physical Exam General: Alert, Oriented x3, Mild distress HEENT: Atraumatic, PERRLA, Mucous membr. moist/pink, EOMI, Sclerae nonicteric Neck: Supple, JVD not distended Respiratory: Clear to auscultation bilaterally, Normal air movement Cardiovascular: No edema, Regular rate/rhythm, Normal S1 S2, No gallops, No rubs, No murmurs Capillary refill: <2 Seconds Gastrointestinal: Normal bowel sounds, Soft and benign, Non-distended, No tenderness, No rebound, No guarding Musculoskeletal: No clubbing, Tenderness (left hip), Other (left hip is without bruising or hematoma) Integumentary: No rashes Neurological: Normal speech, Cranial nerves 3-12 intact, Normal affect Assessment And Plan - Plan # Traumatic Ground-Level Fall complicated by an Acute Non-Displaced Left Femoral Neck Fracture - Orthopedic Surgery consulted and Dr. Petty following - recommendations appreciated - Plan for surgery today - Will require PT, post-operatively and likely inpatient rehab placement - Pain control # Rheumatoid Arthritis # Hypertension # Hypothyroidism # History of Dulce Maria-en-Y Gastric Bypass - Hold home meds while NPO Raman Meng M.D.
--- NOTE | 2022-09-08 18:39 | EKG ---
Test Date: 2022-09-07 Test Time: 15:45:39 Unix Engineer: ASHELY MEASUREMENT RESULTS: Intervals: Rate: 66 VA: 182 QRSD: 90 QT: 438 QTc: 459 [place]: P: 70 VA: 182 QRS: -31 T: 29 INTERPRETIVE STATEMENTS: Normal sinus rhythm Left axis deviation ST abnormality, possible digitalis effect Abnormal ECG No previous ECG available for comparison Electronically Signed On 09-08-22 18:37:30 CDT by Jonathan Espinal
--- NOTE | 2022-09-08 20:47 | CON ---
Date of Consultation: 09/08/2022 Reason For Consultation: Left hip pain. History Of Present Illness: Ms. Frausto is a 76-year-old female who presented to the ER after sustaini ng a fall onto her left side with subsequent pain when ambulating and bearing weight. She tripped ov er a rug in the garage with subsequent pain to the left hip. She was seen in the emergency room and diagnosed with a minimally displaced left femoral neck fracture. She is admitted to the floor for pa in control and for medical evaluation. Review of Systems: As above, otherwise negative. Past Medical History: Rheumatoid arthritis, hypertension, and hypothyroidism. Past Surgical History: Gastric bypass procedure and hernia repair. Family History: Reviewed and noncontributory. Social History: Denies tobacco or alcohol use. Lives at home. Allergies: IODINE. Medications: Per medication reconciliation. Physical Examination: General: No apparent distress. HEENT: Normocephalic, atraumatic. Neck: Supple. Cardiovascular: Nonlabored breathing. Abdomen: Nondistended. Psychiatric: Responds to exam. Musculoskeletal: Bilateral upper extremities put through range of motion without pain. No gross def ormities. No obvious dislocations. Right lower extremity with functional range of motion without pa in. No gross deformities. No obvious dislocations. Left lower extremity with pain with range of mo tion of the left hip. Tenderness to palpation of the left hip. No tenderness over the knee, tibia o r ankle. Sensation grossly intact to the dorsum. Imaging: CT scan demonstrated a minimally displaced left femoral neck fracture with valgus impaction . Assessment And Plan: Ms. Frausto is a 76-year-old female with a left femoral neck fracture. I discuss ed with the patient and her family at length the risks and benefits associated with operative and non operative treatment. Given her fracture pattern, I recommend surgical fixation with percutaneous scr ews. Risks and benefits associated with the procedure were explained. The patient and her family ex pressed understanding. We will proceed with CRPP of her left femoral neck fracture later today. CV/MODL Voice ID: [id number] Report ID: [id number]
[2022-09-09] MEDS: CLINDAMYCIN INJ 600 MG in NA CHLORIDE 0.9% 50 ML IV SCH (00:13)
--- NOTE | 2022-09-09 02:02 | OP ---
Date of Procedure: 09/08/2022 Surgeon: Aquilino Petty MD Preoperative Diagnosis: Left femoral neck fracture. Postoperative Diagnosis: Left femoral neck fracture. Procedure Performed: Closed reduction with percutaneous screw fixation of left femoral neck fracture . Anesthesia: General LMA. Complications: None. Implants: Three 6.5 mm cannulated screws. Indication For Procedure: Ms. Frausto is a 76-year-old female who presented to the ER yesterday after sustaining a fall on to her left side with x-rays demonstrating a valgus impacted femoral neck fractu re. I discussed with the patient and family at length risks, benefits associated with operative and nonoperative treatment. They expressed understanding and elected to proceed with operative treatment . Description Of Procedure: After informed consent was obtained, the patient was identified in the pre operative holding area. The left lower extremity was marked. The patient was then brought back to t operative room, transferred to the operating table in supine fashion, and placed under general LMA anesthesia. Her extremity was then well padded and she was placed on the fracture table. The left lower extremity was then gently manipulated and put gentle traction. The right lower extremity was a bducted and flexed at the hip to allow for C-arm fluoroscopy usage. The left lower extremity was the n prepped and draped in usual sterile fashion. A time-out was initiated. The correct patient and pr ocedure were confirmed and identified that the patient did receive her preop prophylactic antibiotics . Using fluoroscopy, a proper positioning was noted as well as reduction. A 1 cm stab incision was made over the lateral thigh. A guide pin was placed through the incision into the lateral cortex of the proximal femur. A guide pin was then placed in a center-center position over the medial calcar i nferior aspect of the femoral head. Once in the center-center position, it was followed by 2 superio r anterior, followed by 1 superior anterior, and 1 superior posterior parallel pins. All 3 sets were measured size 70 inferiorly and 75 superiorly. Outer cortex was then drilled and a partially thread ed 70 mm 6.5 cannulated screw was placed inferiorly followed by two 75 mm partially threaded screws s uperiorly. There was overall good bite and fixation of the fracture. Guide pins were then removed. The wounds were then irrigated thoroughly with normal saline. Final x-rays were taken with good ove rall reduction and placement of the hardware. Skin was approximated using 2-0 Vicryl and eli. S terile dressings were applied. The patient was awakened and transferred to PACU in stable condition. Postoperative Plan: The patient will be touchdown weightbearing on the left lower extremity. She wi ll follow up in 2 weeks in my clinic for wound check and staple removal. SRIDHAR/VINAYAK Voice ID: [id number] Report ID: [id number]
[2022-09-09 06:40] LABS: Absolute Lymphocytes (CBC) 0.8 K/uL (0.7-4.9); Hematocrit 31.3 % (36.0-45.0); Lymphocytes % 14.2 % (15.3-44.8); MCV 91.9 fL (80-100); MPV 10.1 fL (7.6-11.3)
[2022-09-09] MEDS ORDERED: CLINDAMYCIN 600MG/D5W 600 MG/50 ML BAG IV SCH (09:00)
[2022-09-09] MEDS: TRAMADOL HCL 50 MG TAB PO PRN (09:03)
[2022-09-09] MEDS: ENOXAPARIN 40 MG/0.4 ML SQ SCH (09:59)
--- NOTE | 2022-09-09 15:22 | P.PN ---
Subjective Date of Service: 09/09/22 Chief Complaint: Left femur fracture Post-operative day #1 from closed reduction percutaneous screw fixation left femoral neck fracture. She is doing well this morning and reports that her pain is well-controlled with her current pain regimen. Plan today is to work with PT to assist with placement for therapy. Review of Systems 10-point ROS is otherwise unremarkable Musculoskeletal: Leg Pain (left hip) Physical Examination - Vital Signs Temperature: 98.0 F Blood Pressure: 156/77 Pulse: 74 Respirations: 16 Pulse Ox (%): 97 Assessment And Plan - Plan - Physical Exam General: Alert, Oriented x3, Mild distress HEENT: Atraumatic, PERRLA, Mucous membr. moist/pink, EOMI, Sclerae nonicteric Neck: Supple, JVD not distended Respiratory: Clear to auscultation bilaterally, Normal air movement Cardiovascular: No edema, Regular rate/rhythm, Normal S1 S2, No gallops, No rubs, No murmurs Capillary refill: <2 Seconds Gastrointestinal: Normal bowel sounds, Soft and benign, Non-distended, No tenderness, No rebound, No guarding Musculoskeletal: No clubbing, Tenderness (left hip), Other (surgical site covered in clean dressing) Integumentary: No rashes Neurological: Normal speech, Cranial nerves 3-12 intact, Normal affect Assessment And Plan - Plan # Traumatic Ground-Level Fall complicated by an Acute Non-Displaced Left Femoral Neck Fracture - Orthopedic Surgery consulted and Dr. Petty following - recommendations appreciated - S/P closed reduction percutaneous screw fixation left femoral neck fracture (09/08/2022) - Requested PT evaluation - Pain control # Rheumatoid Arthritis # Hypertension # Hypothyroidism # History of Dulce Maria-en-Y Gastric Bypass - Resume home medications once reconciled Raman Meng M.D.
[2022-09-09] MEDS: HYDROMORPHONE HCL 1 MG/ML INJ IV PRN (15:47)
[2022-09-09 16:05] VITALS: O2SAT 99
[2022-09-09] MEDS ORDERED: LEVOTHYROXINE SOD 0.075 MG TAB PO ONE (20:00)
[2022-09-09] MEDS: NA CHLORIDE 0.9% 1,000 ML IV SCH (21:17)
[2022-09-10] MEDS: NA CHLORIDE 0.9% 1,000 ML IV SCH ×2 (00:20→09:10)
[2022-09-10] MEDS: HYDROMORPHONE HCL 1 MG/ML INJ IV PRN (00:36)
[2022-09-10 03:51] LABS: Absolute Lymphocytes (CBC) 1.6 K/uL (0.7-4.9); Hematocrit 27.7 % (36.0-45.0); Lymphocytes % 14.2 % (15.3-44.8); MCV 91.6 fL (80-100); RBC Red Blood Cell Count 3.03 M/uL (3.86-4.86)
[2022-09-10 03:58] LABS: Potassium 4.1 mmol/L (3.5-5.1)
[2022-09-10 07:22] LABS: Magnesium 1.6 mg/dL (1.8-2.4); Phosphorus 2.6 mg/dL (2.5-4.9)
[2022-09-10] MEDS ORDERED: MAGNESIUM SULFATE 1 gm IVPB 1 GM/100 ML BAG IV ONE (07:53)
--- NOTE | 2022-09-10 08:49 | P.DS ---
Admission Date: 09/07/22 Discharge Date: 09/10/22 Disposition: CO HOME/HOME HEALTH CARE Discharge Condition: GOOD Reason for Admission: Left femur fracture Consultations: 1. Orthopedic Surgery Procedures: - 09/08/2022 - Closed Reduction Percutaneous Screw Fixation of Left Femoral Neck Fracture Hospital Course: DIAGNOSES: # Traumatic Ground-Level Fall complicated by an Acute Non-Displaced Left Femoral Neck Fracture # Suspect Reactive Leukocytosis, mild # Rheumatoid Arthritis # Hypertension # Hypothyroidism # History of Dulce Maria-en-Y Gastric Bypass HOSPITAL COURSE: Mrs. Dyana Frausto is a pleasant 76 year old female with a past medical history significant for rheumatoid arthritis, hypertension, and hypothyroidism who was admitted to the [facility] on 09/07/2022 for left hip pain following a mechanical ground level fall. She was admitted to the Medicine service. Upon further evaluation, she was found to have an acute non-displaced left femoral neck fracture. Orthopedic Surgery was consulted and she was evaluated by Dr. Petty. On 09/08/2022, she underwent a close reduction percutaneous screw fixation of the left femoral neck fracture. She did well post-operatively and worked with Physical Therapy. After discussions between myself, physical therapy, and Mrs. Frausto, she felt that she would rather go home with Home Health, which is reasonable given her support system at home and how well she performed with Physical Therapy. With the assistance of case management, this was arranged. I spoke with Dr. Petty, who cleared her for discharge with one month of apixaban and touch-down weight bearing for 6 weeks. Although her WBC was slightly elevated, she exhibited no fevers, chills, or signs of infection. This was suspected to be reactive leukocytosis from pain. On 09/10/2022, she was seen on morning rounds and deemed medically stable for discharge. She was discharged with instructions to schedule follow-up appointments with her PCP (Efraín Wynn NP) in 3-5 days to have her WBC count rechecked and with Orthopedic Surgery (Dr. Petty) in 1-2 weeks. She was provided prescriptions for tramadol and apixaban. She and her were given the opportunity to ask questions and reported no further questions. Furthermore, all questions were answered to the best of my ability. Prior to her controlled substance prescription, a PDMP search was conducted. Over the last year, she has received 6 prescriptions from 3 providers to 1 pharmacy. Her overdose risk score is 250. A copy of this discharge summary will be sent to the above providers to facilitate continuity of care. Today, I personally spent 35 minutes on her case, of which greater than 50% of the time was spent in patient education, counseling, and coordination of care as described above. - Physical Exam General: Alert, Oriented x3, Mild distress HEENT: Atraumatic, PERRLA, Mucous membr. moist/pink, EOMI, Sclerae nonicteric Neck: Supple, JVD not distended Respiratory: Clear to auscultation bilaterally, Normal air movement Cardiovascular: No edema, Regular rate/rhythm, Normal S1 S2, No gallops, No rubs, No murmurs Capillary refill: <2 Seconds Gastrointestinal: Normal bowel sounds, Soft and benign, Non-distended, No tenderness, No rebound, No guarding Musculoskeletal: No clubbing, Tenderness (left hip), Surgical site is clean, dry, and intact Integumentary: No rashes Neurological: Normal speech, Cranial nerves 3-12 intact, Normal affect Vital Signs/Physical Exam: Temp Pulse Resp BP Pulse Ox 97.4 F 60 18 150/72 H 98 09/10/22 04:00 09/10/22 04:00 09/10/22 04:00 09/10/22 04:00 09/10/22 04:00 Laboratory Data at Discharge: WBC 11.50 K/uL (4.3-10.9) H 09/10/22 03:12 Hgb 9.2 g/dL (12.0-15.0) L D 09/10/22 03:12 Hct 27.7 % (36.0-45.0) L 09/10/22 03:12 Plt Count 166 K/uL (152-406) 09/10/22 03:12 PT 11.7 SECONDS (9.5-12.5) 09/08/22 03:23 INR 1.06 09/08/22 03:23 APTT 31.1 SECONDS (24.3-36.9) 09/08/22 03:23 Sodium 141 mmol/L (136-145) 09/10/22 03:12 Potassium 4.1 mmol/L (3.5-5.1) 09/10/22 03:12 BUN 11 mg/dL (7-18) 09/10/22 03:12 Creatinine 0.72 mg/dL (0.55-1.3) 09/10/22 03:12 Glucose 120 mg/dL (74-106) H 09/10/22 03:12 Phosphorus 2.6 mg/dL (2.5-4.9) 09/10/22 03:12 Magnesium 1.6 mg/dL (1.8-2.4) L 09/10/22 03:12 Total Bilirubin 0.5 mg/dL (0.2-1.0) 09/08/22 03:23 AST 20 U/L (15-37) 09/08/22 03:23 ALT 18 U/L (12-78) 09/08/22 03:23 Alkaline Phosphatase 89 U/L (45-117) 09/08/22 03:23 Home Medications: Hydroxychloroquine [Plaquenil*] 200 mg PO BID 09/07/22 Levothyroxine Sodium [Euthyrox] 75 mcg PO DAILY 09/07/22 Lisinopril [Zestril] 40 mg PO BID 09/07/22 Metoprolol Succinate [Toprol Xl] 200 mg PO DAILY 09/07/22 Apixaban [Eliquis] 2.5 mg PO BID 30 Days #60 tablet 09/10/22 traMADol HCL [Ultram*] 50 mg PO Q8H PRN 5 Days #15 tab 09/10/22 New Medications: Apixaban [Eliquis] 2.5 mg PO BID 30 Days #60 tablet traMADol HCL [Ultram*] 50 mg PO Q8H PRN 5 Days #15 tab PRN Reason: Pain Physician Discharge Instructions: 1. Please schedule a follow-up appointment with your PCP (Efraín Wynn NP) in 3- 5 days - You will need to have your white blood cell count rechecked at this appointment 2. Please schedule a follow-up appointment with Orthopedic Surgery (Dr. Petty) in 2 weeks - You will have your eli removed at this appointment Diet: AHA Activity: Touch-down (left leg) Followup: EFRAÍN WYNN [Primary Care Provider] - 2-3 Days (Call to make appointment in 3-5 days) Aquilino Petty MD [ACTIVE - CAN ADMIT] - 1-2 Weeks (Call to make appointment) Time spent managing pt's care (in minutes): 35
[2022-09-10 09:04] VITALS: BP 157/72; TEMP 97.7
[2022-09-10] MEDS: TRAMADOL HCL 50 MG TAB PO PRN (09:09)
[2022-09-10] MEDS: ENOXAPARIN 40 MG/0.4 ML SQ SCH (09:10)
--- NOTE | 2022-09-10 10:40 | P.PN ---
Subjective Date of Service: 09/09/22 Chief Complaint: Left femur fracture Subjective: Working w/ PT pain controlled Physical Examination - Vital Signs Temperature: 97.7 F Blood Pressure: 157/72 Pulse: 63 Respirations: 16 Pulse Ox (%): 98 - Physical Exam General: Alert, In no apparent distress Musculoskeletal: Other (LLE: dressing c/d/i; NVI distally) Assessment And Plan - Plan Dyana is 76 yo female s/p CRPP left femoral neck fracture POD #1 -continue with PT; TDWB LLE -lovenox for DVT prophylaxis -march d/c home vs. SNF as mobilization improved
[2022-09-10] MEDS ORDERED: DIPHENHYDRAMINE 25 MG TAB/CAP PO ONE (10:41)
[2022-09-10] MEDS ORDERED: LEVOTHYROXINE SOD 0.075 MG TAB PO ONE (20:00)
== END 2022-09-10 12:38 | disposition home health service (06) | DRG 482 ==
LOC: ER 13:37 → ERHOLD 18:23 → 4TH 19:44
PROVIDERS: ADMIT Hospitalist; ATTEND Internal Medicine
PROC: 0QS734Z Reposition Left Upper Femur with Internal Fixation Device, Percutaneous Approach (ICD-10-PCS; principal; 2022-09-08 11:30)
DX: S72.002A Fracture of unspecified part of neck of left femur, initial encounter for closed fracture (principal); M06.9 Rheumatoid arthritis, unspecified; K21.9 Gastro-esophageal reflux disease without esophagitis; K46.9 Unspecified abdominal hernia without obstruction or gangrene; I10 Essential (primary) hypertension; E03.9 Hypothyroidism, unspecified; D72.829 Elevated white blood cell count, unspecified; Z88.0 Allergy status to penicillin; Z88.1 Allergy status to other antibiotic agents; Z88.5 Allergy status to narcotic agent; Z98.84 Bariatric surgery status; Z79.01 Long term (current) use of anticoagulants; Z91.041 Radiographic dye allergy status; Z28.310 Unvaccinated for COVID-19; Z79.890 Hormone replacement therapy; Z79.899 Other long term (current) drug therapy; Z20.822 Contact with and (suspected) exposure to COVID-19; W01.0XXA Fall on same level from slipping, tripping and stumbling without subsequent striking against object, initial encounter; Y92.094 Garage of other non-institutional residence as the place of occurrence of the external cause
CPT/HCPCS: 36415; 51702; 71045; 72170; 74176; 80048; 80053; 80076; 81003; 81015; 83735; 83880; 84100; 84484; 85014; 85018; 85025; 85610; 85730; 87811; 93005; 94010; 96365; 96375; 97110; 97116; 97161; 97530; 99285; J0171; J0690; J1100; J1170; J1650; J2001; J2175; J2250; J2405; J2704; J3010; J3475; J3480; J7030

== ENCOUNTER 2024-06-23 10:26 | Emergency (ER) | payer OTHER ==
[2024-06-23 11:25] LABS: Specific Gravity 1.021 (1.005-1.030); Sqamous Epithelial <5 /HPF (None Seen); Urine Bacteria None Seen /HPF (<20); Urine Bilirubin NEGATIVE (Negative); Urine Blood Negative (Negative); Urine Clarity Clear (Clear); Urine Color Yellow (Yellow); Urine Culture Reflex Order NOT NEEDED; Urine Glucose NEGATIVE (Negative); Urine Ketones NEGATIVE (Negative); Urine Microscopic Reflex YN ORDER UMIC; Urine Mucus Slight /HPF (None Seen); Urine Nitrite NEGATIVE (Negative); Urine Protein TRACE (Negative); Urine RBC <5 /HPF (None Seen); Urine Urobilinogen Normal (Normal); Urine WBC <5 /HPF (<5); Urine pH 5.5 (5.0-7.0)
[2024-06-23 11:40] LABS: Absolute Basophils 0.1 K/uL (0-0.5); Absolute Eosinophils 0.3 K/uL (0-0.5); Absolute Lymphocytes (CBC) 2.4 K/uL (0.7-4.9); Absolute Monocytes 0.6 K/uL (0.1-1.3); Absolute Neutrophil 3.5 K/uL (1.8-8.0); Basophils % 0.8 % (0-1.3); Eosinophils % 4.7 % (0-4.4); Hematocrit 32.9 % (36.0-45.0); Hemoglobin 10.6 g/dL (12.0-15.0); Lymphocytes % 35.4 % (15.3-44.8); MCH 32.1 pg (27.0-35.0); MCHC 32.2 g/dL (32.0-36.0); MCV 99.7 fL (80-100); Neutrophils % 51.1 % (41.7-73.7); Platelets 209 thou/uL (152-406); Red Cell Distribution Width 13.2 % (12.1-15.2)
--- NOTE | 2024-06-23 11:54 | RAD REPORT ---
EXAM DESCRIPTION: US - Abdomen Exam Limited - 06/23/2024 11:28 am CLINICAL HISTORY: ABD PAIN COMPARISON: Abdomen Pelvis Wo Contrast dated 09/07/2022 TECHNIQUE: Sonographic grayscale and color flow images of the right upper abdominal quadrant were o btained. FINDINGS: The gallbladder demonstrates no gallstones. Low-level echoes dependently, seen on some saige ges, favored to be artifactual rather than biliary sludge. No pericholecystic fluid or gallbladder wa ll thickening. The common bile duct is normal measuring 2 mm. The liver demonstrates no findings of intrahepatic biliary dilatation. IMPRESSION: Essentially normal gallbladder ultrasound.
[2024-06-23 11:56] LABS: Albumin 3.3 g/dL (3.4-5.0); Albumin/Globulin Ratio 1.1 (1.1-1.8); Anion Gap 7.9 mEq/L (5.0-15.0); Bilirubin Total 0.4 mg/dL (0.2-1.0); Globulin 2.9 g/dL (2.3-3.5); Potassium 3.9 mEq/L (3.5-5.1); Protein, Total 6.2 g/dL (6.4-8.2)
[2024-06-23] MEDS ORDERED: MORPHINE 4 MG/ML SYR ONE (12:28)
[2024-06-23] MEDS ORDERED: MORPHINE 2 MG/ML SYR ONE ×2 (12:35→15:06)
--- NOTE | 2024-06-23 14:23 | RAD REPORT ---
EXAM DESCRIPTION: CT - Abdomen Pelvis Wo Contrast - 06/23/2024 2:04 pm CLINICAL HISTORY: Abdominal pain. ABD PAIN COMPARISON: Abdomen Pelvis Wo Contrast dated 09/07/2022; Abdomen Pelvis Wo Contrast dated 03/17/20 TECHNIQUE: CT imaging of the abdomen and pelvis was performed without contrast. Solid organ and vasc ular assessment is limited due to lack of IV contrast. All CT scans are performed using dose optimization technique as appropriate and may include automated exposure control or mA/KV adjustment according to patient size. FINDINGS: The lower lung miller are clear.Postsurgical changes of a gastric bypass noted. The liver, spleen, pancreas, adrenal glands and kidneys are within normal limits for a limited non-co ntrast examination. No bowel obstruction, free air, free fluid or abscess. There is a thickened appearance to the colon p articularly the transverse colon and hepatic flexure of the colon with moderate stool retention. The appendix is normal. Hardware pins are present proximal left femur. The osseous structures are within normal limits. IMPRESSION: Thickened appearance to the as detailed with moderate stool retention suggests colitis. Elsewhere, no acute process seen. A limited non-contrast examination was performed as detailed.
--- NOTE | 2024-06-23 15:08 | ER ---
Nurse's Notes [facility] Name: Dyana Frausto Age: 78 yrs Sex: Female : 1945 Arrival Date: 06/23/2024 Time: 10:26 Bed 2 Private MD: Diagnosis: Infectious gastroenteritis and colitis, unspecified;Abdominal pain, unspecified Presentation: 06/23 10:54 Chief complaint: Patient states: RUQ pain x2 days, referred here by primary care. rs5 Denies nausea/vomiting. Coronavirus screen: At this time, the client does not indicate any symptoms associated with coronavirus-19. Ebola Screen: No symptoms or risks identified at this time. Initial Sepsis Screen: Does the patient meet any 2 criteria? No. Patient's initial sepsis screen is negative. Does the patient have a suspected source of infection? No. Patient's initial sepsis screen is negative. Risk Assessment: Do you want to hurt yourself or someone else? Patient reports no desire to harm self or others. Onset of symptoms was June 21, 2024. 10:54 Method Of Arrival: Ambulatory rs5 10:54 Acuity: GENARO 3 rs5 Historical: - Allergies: 10:55 Codeine; rs5 10:55 Iodine; Contrast; rs5 10:55 PENICILLINS; rs5 10:55 Sulfa (Sulfonamide Antibiotics); rs5 - PMHx: 10:55 Hypertensive disorder; hyperthyroidism; Rheumatoid Arthritis; Hypothyroidism; rs5 - PSHx: 10:55 Gastric Bypass; hernia repair; broken hip (hernia repair); rs5 - Immunization history:: Adult Immunizations up to date. - Infectious Disease History:: Denies. - Social history:: Smoking status: Patient denies any tobacco usage or history of. Screenin:42 [facility] ED Fall Risk Assessment (Adult) History of falling in the last 3 months, rs5 including since admission No falls in past 3 months (0 pts) Confusion or Disorientation No (0 pts) Intoxicated or Sedated No (0 pts) Impaired Gait No (0 pts) Mobility Assist Device Used No (0 pt) Altered Elimination No (0 pt) Score/Fall Risk Level 0 - 2 = Low Risk Oriented to surroundings, Maintained a safe environment. Abuse screen: Denies threats or abuse. Nutritional screening: No deficits noted. Tuberculosis screening: No symptoms or risk factors identified. Assessment: 10:42 General: Appears in no apparent distress. comfortable, Behavior is calm, cooperative. rs5 Pain: Complains of pain in RUQ Pain currently is 4 out of 10 on a pain scale. Quality of pain is described as aching, Is continuous. Neuro: Level of Consciousness is awake, alert, obeys commands, Oriented to person, place, time, situation. Cardiovascular: Patient's skin is warm and dry. Respiratory: Airway is patent Respiratory effort is even, unlabored, Respiratory pattern is regular, symmetrical. GI: Abdomen is round non-distended, Bowel sounds present X 4 quads. Abd is soft and non tender X 4 quads. Patient currently denies nausea, vomiting. : No signs and/or symptoms were reported regarding the genitourinary system. EENT: No signs and/or symptoms were reported regarding the EENT system. Derm: Skin is intact, Skin is pink, warm \T\ dry. Musculoskeletal: Range of motion: intact in all extremities. 11:35 Reassessment: Patient and/or family updated on plan of care and expected duration. Pain rs5 level reassessed. Patient is alert, oriented x 3, equal unlabored respirations, skin warm/dry/pink. 12:41 Reassessment: Patient and/or family updated on plan of care and expected duration. Pain rs5 level reassessed. Patient is alert, oriented x 3, equal unlabored respirations, skin warm/dry/pink. 13:15 Reassessment: No changes from previously documented assessment. rs5 13:30 Reassessment: Patient appears in no apparent distress at this time. No changes from ar6 previously documented assessment. 14:59 Reassessment: Pt requesting pain medication prior to discharge. Notified ERP. See MAR ld1 for orders. 15:11 Reassessment: Patient appears in no apparent distress at this time. Patient and/or ld1 family updated on plan of care and expected duration. Pain level reassessed. 15:40 Reassessment: No changes from previously documented assessment. rs5 Vital Signs: 10:54 BP 155 / 77; Pulse 68; Resp 17; Temp 98(O); Pulse Ox 99% on R/A; rs5 11:36 BP 141 / 69; Pulse 77; Resp 18; Pulse Ox 100% on R/A; ar6 13:02 BP 174 / 79; Pulse 65; Resp 18; Pulse Ox 99% on R/A; ld1 14:13 BP 139 / 73; Pulse 61; Resp 18; Pulse Ox 100% on R/A; ar6 15:22 BP 152 / 79; Pulse 64; Resp 18; Pulse Ox 100% on R/A; rs5 ED Course: 10:29 Patient arrived in ED. im 10:41 Dolores Salguero, CECILIO is Primary Nurse. ld1 10:41 Gallito Montnaa MD is Attending Physician. bo1 10:42 Patient has correct armband on for positive identification. Bed in low position. Call rs5 light in reach. Side rails up X2. 10:42 No provider procedures requiring assistance completed. rs5 10:55 Triage completed. rs5 11:28 Inserted saline lock: 22 gauge in left antecubital area, using aseptic technique. Blood rs5 collected. Flushed with 10 mL NS. 11:29 US Abdomen Limited In Process Unspecified. EDMS 14:06 Abdomen In Process Unspecified. EDMS 15:11 Arm band placed on right wrist. ld1 15:40 IV discontinued, intact, bleeding controlled, No redness/swelling at site. Pressure rs5 dressing applied. Administered Medications: 11:34 Not Given (Patient Refused): ondansetron 4 mg IVP once; over 2 minutes rs5 12:15 Drug: morphine IVP or IV 2 mg IVP once over 4 mins Route: IVP; Infused Over: 4 mins; rs5 Site: right antecubital; 12:30 Follow up: Response: No adverse reaction; Pain is unchanged, physician notified rs5 12:47 Drug: morphine IVP or IV 2 mg IVP once over 4 mins Route: IVP; Infused Over: 4 mins; rs5 Site: left antecubital; 15:28 Follow up: Response: No adverse reaction ld1 15:10 Drug: morphine IVP or IV 2 mg IVP once over 4 mins Route: IVP; Infused Over: 4 mins; ld1 Site: left antecubital; 15:27 Follow up: Response: No adverse reaction ld1 Medication: 10:58 VIS not applicable for this client. rs5 Outcome: 15:08 Discharge ordered by . bo1 15:40 Discharged to home ambulatory, rs5 15:40 Condition: stable 15:40 Discharge instructions given to patient, family, Instructed on discharge instructions, follow up and referral plans. medication usage, Demonstrated understanding of instructions, follow-up care, medications, Prescriptions given X 3, 15:41 Patient left the ED. rs5 Signatures: Dispatcher [employer] EDMS Dolores Salguero RN RN ld1 Rohit Roberts RN RN rs5 Vaishali Young Benjamin, MD MD bo1 Jocy Nolan RN RN ar6 Corrections: (The following items were deleted from the chart) 12:48 12:38 morphine IVP or IV 2 mg IVP in right antecubital over 4 mins rs5 rs5 15:40 15:11 BP 152 / 79; Pulse 64bpm; Resp 18bpm; Pulse Ox 100% RA; ld1 rs5
--- NOTE | 2024-06-23 15:08 | EDPHYS ---
Physician Documentation [facility] Name: Dyana Frausto Age: 78 yrs Sex: Female : 1945 Arrival Date: 06/23/2024 Time: 10:26 Bed 2 Private MD: ED Physician Gallito Montana HPI: 06/23 12:10 This 78 yrs old Female presents to ER via Ambulatory with complaints of Abdominal Pain, bo1 Sent by . 12:10 Pain at the RUQ for 2 days. Sent to the ER for suspicion of gallbladder dz. . Onset: bo1 The symptoms/episode began/occurred gradually, 2 day(s) ago. Severity of symptoms: in the emergency department the symptoms are worse markedly, 5/10 pain. No V/D or fever. Hx of gastric bypass surgery and planned weight loss.. Historical: - Allergies: 10:55 Codeine; rs5 10:55 Iodine; Contrast; rs5 10:55 PENICILLINS; rs5 10:55 Sulfa (Sulfonamide Antibiotics); rs5 - PMHx: 10:55 Hypertensive disorder; hyperthyroidism; Rheumatoid Arthritis; Hypothyroidism; rs5 - PSHx: 10:55 Gastric Bypass; hernia repair; broken hip (hernia repair); rs5 - Immunization history:: Adult Immunizations up to date. - Infectious Disease History:: Denies. - Social history:: Smoking status: Patient denies any tobacco usage or history of. ROS: 12:12 Constitutional: Negative for fever, chills bo1 12:12 Cardiovascular: Negative for chest pain, 12:12 Respiratory: Negative for shortness of breath, 12:12 Abdomen/GI: Positive for abdominal pain, of the right upper quadrant, 12:12 MS/extremity: Negative for acute changes, swelling, tenderness, 12:12 Skin: Negative for rash, Exam: 17:43 Constitutional: This is a well developed, well nourished patient who is awake, alert, bo1 and in no acute distress. Head/Face: Normocephalic, atraumatic. 17:43 Constitutional: The patient appears alert, awake, comfortable, Non toxic 17:43 Eyes: Conjunctiva: no acute changes, Sclera: icterus, is not appreciated, 17:43 Cardiovascular: Pulses: no pulse deficits are appreciated, Heart sounds: normal, 17:43 Respiratory: the patient does not display signs of respiratory distress, Respirations: normal, Breath sounds: are clear throughout, 17:43 Abdomen/GI: Inspection: abdomen appears normal, scar(s), are noted in the from gastric bypass, Bowel sounds: normal, Tenderness RUQ, 17:43 Back: CVA tenderness, is absent, 17:43 Skin: Appearance: normal except for affected area, Color: normal in color, diaphoresis is not appreciated, Vital Signs: 10:54 BP 155 / 77; Pulse 68; Resp 17; Temp 98(O); Pulse Ox 99% on R/A; rs5 11:36 BP 141 / 69; Pulse 77; Resp 18; Pulse Ox 100% on R/A; ar6 13:02 BP 174 / 79; Pulse 65; Resp 18; Pulse Ox 99% on R/A; ld1 14:13 BP 139 / 73; Pulse 61; Resp 18; Pulse Ox 100% on R/A; ar6 15:22 BP 152 / 79; Pulse 64; Resp 18; Pulse Ox 100% on R/A; rs5 MDM: 11:21 Patient medically screened. bo1 17:41 Differential Diagnosis Abd pain, gallbladder dz. Data reviewed: vital signs, lab test bo1 result(s), CBC, electrolytes, urinalysis, radiologic studies, CT scan, ultrasound. 17:46 ED course: Pt w/o need for obs/admit. No surgical indication. Had not recently bo1 travelled. Per "colitis" suggestion by CT will treat with PO abx and watch for improvement. Pt due to see PCP tomorrow and plan is agreed to by the pt, spouse and daughter. Pt to return to the ER if worse. 06/23 11:07 Order name: CBC with Diff; Complete Time: 12:14 bo1 06/23 11:07 Order name: CMP; Complete Time: 12:14 bo1 06/23 11:07 Order name: Lipase; Complete Time: 12:14 bo1 06/23 11:07 Order name: Urinalysis w/ reflexes; Complete Time: 12:14 bo1 06/23 11:07 Order name: US Abdomen Limited; Complete Time: 12:14 bo1 06/23 12:28 Order name: Abdomen ; Complete Time: 14:32 EDMS 06/23 11:07 Order name: IV Saline Lock; Complete Time: 11:34 bo1 06/23 11:07 Order name: Labs collected and sent; Complete Time: 11:34 bo1 Administered Medications: 11:34 Not Given (Patient Refused): ondansetron 4 mg IVP once; over 2 minutes rs5 12:15 Drug: morphine IVP or IV 2 mg IVP once over 4 mins Route: IVP; Infused Over: 4 mins; rs5 Site: right antecubital; 12:30 Follow up: Response: No adverse reaction; Pain is unchanged, physician notified rs5 12:47 Drug: morphine IVP or IV 2 mg IVP once over 4 mins Route: IVP; Infused Over: 4 mins; rs5 Site: left antecubital; 15:28 Follow up: Response: No adverse reaction ld1 15:10 Drug: morphine IVP or IV 2 mg IVP once over 4 mins Route: IVP; Infused Over: 4 mins; ld1 Site: left antecubital; 15:27 Follow up: Response: No adverse reaction ld1 Disposition Summary: 06/23/24 15:08 Discharge Ordered Notes: Location: Home bo1 Problem: new bo1 Symptoms: have improved bo1 Condition: Stable bo1 Diagnosis - Infectious gastroenteritis and colitis, unspecified bo1 - Abdominal pain, unspecified bo1 Followup: bo1 - With: Private Physician - When: 24 Hours - Reason: Continuance of care Discharge Instructions: - Discharge Summary Sheet bo1 - Abdominal Pain, Adult bo1 - Colitis bo1 Forms: - Medication Reconciliation Form bo1 - Antibiotic Education bo1 - Prescription Opioid Use bo1 - Patient Portal Instructions bo1 - Leadership Thank You Letter bo1 Prescriptions: - Cipro 500 mg Oral Tablet - take 1 tablet ORAL route every 12 hours for 10 days; 20 tablet; Refills: 0, bo1 Product Selection Permitted - Metronidazole 500 mg Oral Tablet - take 1 tablet ORAL route every 8 hours; 30 tablet; Refills: 0, Product bo1 Selection Permitted - Tramadol 50 mg Oral tablet - take 1 tablet ORAL route every 8 hours as needed (start with half a tablet) as bo1 requested; 12 tablet; Refills: 0, Product Selection Permitted Signatures: Dispatcher [employer] EDDolores Saenz RN RN ld1 Rohit Roberts RN RN rs5 Gallito Montana MD MD bo1 Corrections: (The following items were deleted from the chart) 11:07 11:07 CBC+H.LAB.BRZ ordered. EDMS EDMS 11: 11:07 COMPREHENSIVE METABOLIC PANEL+C.LAB.BRZ ordered. EDMS EDMS 11: 11:07 LIPASE+C.LAB.BRZ ordered. EDMS EDMS 11: 11:07 Urinalysis+U.LAB.BRZ ordered. EDMS EDMS 12:12 12:10 No V/D or fever. Hx of gastric bypass surgery and weight loss.. bo1 bo1 12:28 12:15 Abdomen Pelvis W Con+CT.RAD.BRZ ordered. EDMS EDMS
[2024-06-23 15:44] VITALS: TEMP 98
[2024-06-23 15:48] VITALS: O2SAT 100
[2024-06-23 15:49] VITALS: BP 152/79
== END 2024-06-23 15:41 | disposition home or self-care (01) ==
LOC: ER 10:26
DX: A09 Infectious gastroenteritis and colitis, unspecified (principal); I10 Essential (primary) hypertension; Z98.84 Bariatric surgery status
CPT/HCPCS: 85025; 81001; 36415; 83690; 80053; 74176; 76705; 99284; J2270